=== PATIENT | female | born 1980 | race Caucasian/White ===

== ENCOUNTER 2019-05-24 20:00 | Outpatient (CLI) | payer SELFPAY | END 2019-05-24 20:01 | disposition home or self-care (01) | LOC: SLEEP 05-25 10:20 | PROVIDERS: Family Provider Nurse Practitioner Family; PCP Nurse Practitioner Family; Visit Provider Family Medicine | DX: G47.33 Obstructive sleep apnea (adult) (pediatric) (principal) | CPT/HCPCS: 95810 ==

== ENCOUNTER 2019-05-25 08:06 | Outpatient (CLI) | payer SELFPAY ==
--- NOTE | 2019-05-25 08:21 | MR_ITS ---
WS: [id number] MRI OF THE PELVIS WITHOUT GADOLINIUM ENHANCEMENT. INDICATION: Back pain TECHNIQUE: MRI of the pelvis without gadolinium enhancement. FINDINGS: Lower lumbar spine is normal in appearance. No spinal canal narrowing in the lower lumbar s pine. Marginal bony sclerosis involving both sacroiliac joints likely due to prior sacroiliitis. No e kt to indicate active infectious or inflammatory arthritis. Otherwise normal bone marrow signal in the bony pelvis and sacrum. No acute fractures. No significant erosive changes. Normal visualized sacral nerve roots. Facet arthr opathy lower lumbar spine. Mild endplate degenerative changes L5-S1. MR/MR pelvis wo con* [id number] IMPRESSION: 1. Marginal sclerosis along both sacroiliac joints likely due to prior sacroil iitis. No edema to indicate acute inflammation. 2. Bone marrow signal in the sacrum and ilium otherwise normal in appearance. 3. Mild endplate degenerative changes L5-S1. 4. Mild facet arthropathy lower lumbar spine.
== END 2019-05-25 08:07 | disposition home or self-care (01) ==
LOC: RADSHAW 08:09
PROVIDERS: Family Provider Nurse Practitioner Family; PCP Nurse Practitioner Family; Visit Provider Internal Medicine Rheumatology
DX: M54.89 Other dorsalgia (principal); M47.897 Other spondylosis, lumbosacral region; G95.89 Other specified diseases of spinal cord
CPT/HCPCS: 72195

== ENCOUNTER 2019-07-19 13:35 | Emergency (ER) | payer SELFPAY ==
[2019-07-19 14:28] VITALS: BP 134/93; PULSE 94; RESP 18; TEMP 36.9; O2SAT 97; BMI 46.7
--- NOTE | 2019-07-19 17:06 | ED_ITS ---
HPI - Back Pain/Injury General: Chief Complaint: Back Pain/Injury Stated Complaint: hip/back pain Time Seen by Provider: 07/19/19 17:05 History of Present Illness: HPI Narrative: 39-year-old female comes in today for complaints of right hip pain. Patient reports having some difficulty with pain and discomfort starting today. Patient has a history of chronic pain in the back and generalized muscle. Patient appears well. Patient appears in no pain at rest. Review of Systems General: Reports: 10 or more systems reviewed and unremarkable except in HPI and below Musc: Reports: back pain and joint pain PFSH ED PFSH: Family History (Updated 06/30/19 @ 15:16 by Arianne Walker LPN) Other Arthritis Cancer Diabetes Heart disease Kidney disease Stroke Social History (Updated 06/30/19 @ 15:16 by Arianne Walker LPN) Smoking and tobacco status: never smoked Alcohol intake: never Female Reproductive History: Date of last menstrual period: 06/21/19 Physical Exam Const: COMMON NORMALS: no apparent distress and oriented x3 GENERAL APPEARANCE: cooperative HENMT: COMMON NORMALS: normocephalic, external ears normal, EAC's normal, TM's normal bilaterally and external nose normal HEAD & SCALP: normal to inspection and normocephalic FACE & SINUS: normal facial exam NOSE: external nose normal GENERAL EAR: hearing not grossly impaired EXTERNAL EAR: Yes external ears normal EXTERNAL AUDITORY CANAL: EAC's normal TYMPANIC MEMBRANE: TM's normal bilaterally MOUTH: oral and palatal mucosa normal THROAT: posterior oropharynx normal Eye: COMMON NORMALS: PERRL and EOMs intact bilaterally PUPIL: Yes PERRL Neck/C-Spine: COMMON NORMALS: full ROM and no lymphadenopathy Lymph: LYMPHATIC: no lymphedema noted Chest: COMMONS NORMALS: inspection of chest normal and palpation of chest normal Resp: COMMON NORMALS: normal respiratory effort and clear to auscultation bilaterally AUSCULTATION: clear to auscultation bilaterally Cardio: COMMON NORMALS: regular rate and regular rhythm RATE: regular rate RHYTHM: regular rhythm GI: COMMON NORMALS: normal to inspection, nondistended, normoactive bowel sounds and non-tender : COMMON NORMALS: Yes no CVA tenderness BLADDER/KIDNEY EXAM: Yes no CVA tenderness Back/Pelvis: COMMON NORMALS: no CVA tenderness LUMBAR SPINE/LOWER BACK: Yes paraspinal muscle spasm Lumbar paraspinal muscle spasm: right Extremity: COMMON NORMALS: normal to inspection GENERAL: No edema Neuro: COMMON NORMALS: oriented x3, moves all extremities and no focal motor deficits Psych: COMMON NORMALS: mental status grossly normal and cooperative Skin: COMMON NORMALS: no rashes or lesions noted GENERAL SKIN EXAM: no rashes or lesions noted Course Vital Signs: Vital signs: Vital Signs Temperature 98.5 F 07/19/19 14:28 Pulse Rate 94 07/19/19 14:28 Respiratory Rate 18 07/19/19 17:07 Blood Pressure 134/93 07/19/19 14:28 Pulse Oximetry 95 07/19/19 17:07 MDM - Back Pain/Injury MDM Narrative: Medical decision making narrative: Medical decision statement. Well-appearing female comes in today with low back pain and right hip pain. Patient reports that she has felt a pop in the area which did not relieve some of her pain but she continues to have quite a bit of discomfort. Patient was referred from her primary care office. On exam we note a lot of muscle tenderness on the right side in the lumbar paraspinous area. Abdomen soft nontender. No CVA tenderness. Skin is warm and dry. Vital signs are normal. Differential diagnosis includes osteoarthritis, intervertebral disc disease, facet arthropathy, lumbar radiculopathy. X-ray noted no abnormalities to her hip or pelvis. Reviewed exam with patient recommended treatment for lumbar radiculopathy. Encourage activity as tolerated continue with her routine medications and follow-up with primary care. Discharge Plan Discharge Patient Disposition: Home, Self-Care Clinical Impression: Lumbar radiculopathy Condition: Stable Prescriptions: New hydrocodone-acetaminophen 5-325 mg tablet 1 tab PO Q6H PRN (Reason: pain (scale score 7-10)) Qty: 7 RF: 0 No Action buspirone 10 mg tablet 30 mg PO BID RF: 0 citalopram 10 mg tablet 10 mg PO QDAY RF: 0 ferrous gluconate [Ferate] 240 mg (27 mg iron) tablet 240 mg PO QDAY RF: 0 fluticasone propionate [Allergy Relief (fluticasone)] 50 mcg/actuation spray,suspension 2 spray INTRANASAL QDAY RF: 0 hydroxyzine HCl 25 mg tablet 25 mg PO BID PRNRF: 0 metoprolol tartrate 25 mg tablet 25 mg PO BID RF: 0 meloxicam [Mobic] 7.5 mg tablet 7.5 mg PO QDAY RF: 0 pantoprazole [address] for susp in packet 40 mg PO QDAY RF: 0 ropinirole 1 mg tablet 1 mg PO QDAY RF: 0 tizanidine 4 mg capsule 4 mg PO TID PRNRF: 0 gabapentin 600 mg tablet 600 mg PO TID Qty: 90 RF: 1 Discharge Orders: Discharge Order (Routine); Ordered 07/19/19 Ordered By: Lam Sheridan Referrals: Joan Ferreira, PERSONAL COMPUTER NETWORK ENGINEER [Primary Care Provider] - Discharge Diet: Usual diet Discharge Activity: Increase activity as tolerated Patient Instructions: Lumbar Radiculopathy (ED) Activity Restrictions/Additional Instructions: Drink plenty of fluids Medications as directed Gentle stretching and range of motion exercise Ice and heat for further pain control Follow-up with primary care in three days as needed Return to ER for high fever or new concerns Coding Level of Care Code ED Wick And Base Assembler for Andres Fwd Exam Comprehensive
[2019-07-19 17:07] VITALS: RESP 18; O2SAT 95
--- NOTE | 2019-07-19 17:12 | XR_ITS ---
WS: [id number] XR hip RT 2-3V wo/w pel* [id number] REASON FOR EXAM: pain FINDINGS: The pelvis show normal ilium, ischium, and pubis. The right hip showed normal appearance of the acetabulum femoral head articulation. No fractures of t he head of the femur, neck, or intertrochanteric area. XR/XR hip RT 2-3V wo/w pel* [id number] IMPRESSION: Negative pelvis and right hip.
[2019-07-19] MEDS: HYDROcodone-acetaminophen 7.5-325 mg Tablet 1 TAB PO (17:29)
[2019-07-19 18:11] VITALS: RESP 17; O2SAT 95
== END 2019-07-19 18:11 | disposition home or self-care (01) ==
PROVIDERS: Emergency Provider Nurse Practitioner Family; Family Provider Nurse Practitioner Family; PCP Nurse Practitioner Family
DX: M54.16 Radiculopathy, lumbar region (principal)
CPT/HCPCS: 73502; 73503; 99281; 99283

== ENCOUNTER 2019-07-21 20:00 | Outpatient (CLI) | payer SELFPAY | END 2019-07-21 20:01 | disposition home or self-care (01) | LOC: SLEEP 07-22 10:24 | PROVIDERS: Family Provider Nurse Practitioner Family; PCP Nurse Practitioner Family; Visit Provider Nurse Practitioner Family | DX: G47.30 Sleep apnea, unspecified (principal) | CPT/HCPCS: 95810; 95811 ==

== ENCOUNTER → 2019-07-27 16:22 | Outpatient (BNVA) | payer SELFPAY | PROVIDERS: Family Provider Nurse Practitioner Family; PCP Nurse Practitioner Family; Visit Provider Internal Medicine Rheumatology | DX: M19.90 Unspecified osteoarthritis, unspecified site (principal); Z79.899 Other long term (current) drug therapy; M46.1 Sacroiliitis, not elsewhere classified; M06.4 Inflammatory polyarthropathy; M45.9 Ankylosing spondylitis of unspecified sites in spine; G89.29 Other chronic pain; M47.819 Spondylosis without myelopathy or radiculopathy, site unspecified; R76.8 Other specified abnormal immunological findings in serum; R79.82 Elevated C-reactive protein (CRP) | CPT/HCPCS: 36415; 80076; 82565; 85651; 86140; 86812; 99214; G0463 ==

== ENCOUNTER → 2019-07-27 17:15 | Outpatient (BNVA) | payer SELFPAY | PROVIDERS: Family Provider Nurse Practitioner Family; PCP Nurse Practitioner Family; Visit Provider Internal Medicine Rheumatology | DX: Z79.899 Other long term (current) drug therapy (principal); M19.90 Unspecified osteoarthritis, unspecified site; M46.1 Sacroiliitis, not elsewhere classified; M06.4 Inflammatory polyarthropathy; M45.9 Ankylosing spondylitis of unspecified sites in spine; G89.29 Other chronic pain; M47.819 Spondylosis without myelopathy or radiculopathy, site unspecified; R76.8 Other specified abnormal immunological findings in serum; Z71.89 Other specified counseling; R79.82 Elevated C-reactive protein (CRP) | CPT/HCPCS: 85025 ==

== ENCOUNTER 2019-08-02 06:10 | Day surgery (SDC) | payer SELFPAY ==
[2019-07-30 13:50] VITALS: BMI 47.0
[2019-08-02 06:40] VITALS: BP 128/78; PULSE 79; RESP 16; TEMP 36; O2SAT 98; BMI 47.0
[2019-08-02] MEDS: sodium chloride 0.9% 1,000 ML 30 ML (06:56)
[2019-08-02 07:23] LABS: HCG, Serum Qual Negative (Negative)
--- NOTE | 2019-08-02 07:49 | W.PM.OPSUD ---
Surgery/Procedure H&P Update DATE OF PROCEDURE: August 02, 2019 DATE H&P PERFORMED: 07/30/19 H&P UPDATE INFORMATION: I have reviewed H&P completed within last 30 days, I have examined patient prior to procedure and No changes to prior documentation PREOP DIAGNOSIS: Nausea and vomiting PLANNED PROCEDURE: Operation Date: 08/02/19 08:15 Proposed Procedures p EGD 74588 K21.9(Not Applicable) - Antoine Bauer MD
--- NOTE | 2019-08-02 08:15 | ANES.PREANE2 ---
Pre-Anesthetic Assessment Pre-Anesthetic Assessment: Height/Weight: Height 1.68 m Weight 131.995 kg Temp Pulse Resp BP Pulse Ox 96.8 F L 79 16 128/78 98 08/02/19 06:40 08/02/19 06:40 08/02/19 06:40 08/02/19 06:40 08/02/19 06:40 Preop Diagnosis: Nausea and vomiting Proposed Procedure: Operation Date: 08/02/19 08:15 Proposed Procedures p EGD 92290 K21.9(Not Applicable) - Antoine Bauer MD Familial anesthetic complications: none Was Beta Dayami taken within 24 hours: N/A Last intake: Intake Last Liquid Date 08/01/19 Last Liquid Time 23:30 Last Solid Date 08/01/19 Last Solid Time 20:30 Social: Social History: No alcohol and No tobacco Exam: Pre-Anes Outpt Exam: alert, oriented x 3, clear to auscultation bilaterally and regular rate & rhythm Airway: Submandibular: WNL Cervical ROM: WNL MP: 2 Dentition: Full History/ROS: No significant history except as noted Pulmonary: Pulmonary: Asthma and Sleep apnea (recently diagnosed) Comments: possible narcolepsy CV/HEM: CV/HEM: None reported : : None reported Hepatic: Hepatic: None reported GI: GI: GERD Metabolic: Metabolic: Morbid obesity Musc/skel: Musc/skel: Fibromyalgia, Lower Back Pain, OA/DJD, Scoliosis and Weakness (back/full body) Neuropsych: Neuropsych: Anxiety and Depression Anesthetic Plan: ASA status: 3 Anesthesia: MAC PFSH Anesthesia PFSH: Social History Smoking and tobacco status: never smoked Alcohol intake: never Female Reproductive History: Date of last menstrual period: 06/21/19 Data Anesthesia Other Labs: Laboratory Results - last 48 hr 08/02/19 06:51 HCG, Qual Negative Cardiac Studies: No Data to Display
[2019-08-02 09:13] VITALS: BP 117/78; PULSE 75; RESP 18; TEMP 36.2; O2SAT 99
--- NOTE | 2019-08-02 09:18 | ANE.PACU2 ---
 Inpatient post-anesthesia follow up: Airway intact: Yes Vital signs: Temperature 97.2 F Pulse Rate 75 Respiratory Rate 18 Blood Pressure 117/78 Pulse Oximetry 99 Oxygen Delivery Me thod Nasal Cannula Oxygen Flow Rate 4 Fraction of Inspir ed Oxygen Hydration adequate: Yes Nausea and vomiting: No Pain level: 1 Mental status: Baseline
[2019-08-02 09:24] VITALS: BP 138/95; PULSE 72; RESP 18; O2SAT 99
[2019-08-02 09:31] VITALS: BP 130/90; PULSE 70; RESP 18; O2SAT 99
== END 2019-08-02 09:32 | disposition home or self-care (01) ==
PROVIDERS: Family Provider Nurse Practitioner Family; PCP Nurse Practitioner Family; Visit Provider Surgery
PROC: 0DJ08ZZ Inspection of Upper Intestinal Tract, Via Natural or Artificial Opening Endoscopic (ICD-10-PCS; CPT 43235; principal; 2019-08-02 08:15)
DX: R11.2 Nausea with vomiting, unspecified (principal); K25.9 Gastric ulcer, unspecified as acute or chronic, without hemorrhage or perforation; M79.7 Fibromyalgia; Z82.49 Family history of ischemic heart disease and other diseases of the circulatory system; Z83.3 Family history of diabetes mellitus; Z82.3 Family history of stroke; J45.909 Unspecified asthma, uncomplicated; G47.30 Sleep apnea, unspecified; E66.01 Morbid (severe) obesity due to excess calories; Z68.42 Body mass index [BMI] 45.0-49.9, adult; M19.90 Unspecified osteoarthritis, unspecified site
CPT/HCPCS: 12345; 36415; 43239; 84703; 88305; J2704; J7030

== ENCOUNTER → 2019-09-09 14:34 | Outpatient (BNVA) | payer MEDICAID, SELFPAY | PROVIDERS: Family Provider Nurse Practitioner Family; PCP Nurse Practitioner Family; Referring Provider Nurse Practitioner Family; Visit Provider Nurse Practitioner | DX: M46.1 Sacroiliitis, not elsewhere classified (principal); M54.9 Dorsalgia, unspecified; R55 Syncope and collapse | CPT/HCPCS: 99204; 99999 ==

== ENCOUNTER 2019-09-20 10:24 | Outpatient (CLI) | payer MEDICAID, SELFPAY ==
--- NOTE | 2019-09-20 10:34 | MR_ITS ---
WS: [id number] MRI LUMBAR SPINE NONCONTRAST HISTORY: BACK PAIN COMPARISON: None available. TECHNIQUE: Sagittal and axial multisequence imaging is submitted. Normal lumbar alignment with no compression fractures or marrow edema. Mild disc desiccation at L4 and L5. Small amount of edema in the endplates of L5 and S1. No fracture. Conus terminates normally at L1. L1-L2: Normal. L2-L3: Normal. L3-L4: Mild ligamentum flavum hypertrophy. No stenosis. L4-L5: Shallow central disc protrusion and mild annular disc bulging. No significant stenosis. L5-S1: Mild broad-based disc bulging with this RIGHT paracentral/subarticular disc protrusion contact ing the S1 nerve root. Disc osteophyte causing mild narrowing of the RIGHT foramen also. Mild narrowi ng of the LEFT foramen. Mild bilateral facet joint arthritis. Paraspinal soft tissues are normal. MR/MR lumbar spine wo con* [id number] IMPRESSION: 1. Moderate-sized RIGHT paracentral and subarticular recess disc protrusion at L5-S1 with contact on the S1 nerve root. 2. Mild bilateral foraminal narrowing at L5-S1, RIGHT greater than LEFT. 3. Shallow central disc protrusion at L4-5.
== END 2019-09-20 10:25 | disposition home or self-care (01) ==
LOC: RADWPI 10:32
PROVIDERS: Family Provider Nurse Practitioner Family; PCP Nurse Practitioner Family; Visit Provider Nurse Practitioner
DX: M51.27 Other intervertebral disc displacement, lumbosacral region (principal); M48.07 Spinal stenosis, lumbosacral region
CPT/HCPCS: 72148

== ENCOUNTER 2019-10-03 15:46 | Emergency (ER) | payer MEDICAID, SELFPAY ==
[2019-10-03 15:50] VITALS: BMI 46.0
[2019-10-03 15:54] VITALS: BP 116/99; PULSE 90; RESP 18; TEMP 36.6; O2SAT 97
--- NOTE | 2019-10-03 16:10 | W.ED.BACK ---
HPI - Back Pain/Injury General: Chief Complaint: Back Pain/Injury Stated Complaint: back pain Time Seen by Provider: 10/03/19 15:53 History of Present Illness: HPI Narrative: Patient complains about ongoing chronic back pain. Was saw Dr. Walls's office other day was given injection was saw by telehealth visit with Masha senior APN at Dr. Drew's office patient is been set up appointment with pain clinic now and she desired medication to help with her ongoing low back pain MD elicited complaint: back pain Pertinent past history: prior back pain Onset (ago): year(s) Timing: constant and progressively worsening Severity: moderate Similar Symptoms Previously: Yes Quality: aching Location: lumbar spine Radiation: left upper leg, right upper leg, left leg below the knee and right leg below the knee Exacerbating factors: movement and lifting Relieving factors: immobilization Associated symptoms: Reports no associated symptoms; Deny abdominal pain, chills, fever(s), nausea or vomiting Review of Systems Const: Denies: fever(s), chills or body aches Eyes: Denies: change in vision or blurry vision ENMT: Denies: throat pain or nasal congestion Card: Denies: chest pain or dyspnea on exertion Resp: Denies: dyspnea, productive cough or non-productive cough GI: Denies: abdominal pain, nausea or vomiting Musc: Reports: back pain; Denies: extremity pain Skin/Breast: Denies: rash Neuro: Denies: headache(s) Psych: Denies: anxiety or depression Jim/Lymph: Denies: easy bruising PFSH ED PFSH: Medical History Fibromyalgia Gastritis Inflammatory arthritis Sacroiliitis Spondylarthritis Undifferentiated connective tissue disease Surgical History H/O esophagogastroduodenoscopy 08/02/2019: Gastric erosions History of cholecystectomy History of dilation and curettage History of tonsillectomy History of tubal ligation Family History (Updated 09/29/19 @ 13:05 by Jovita Tierney LPN) Mother Arthritis Heart disease Stroke Father Cancer Diabetes Heart disease Kidney disease Social History (Updated 09/29/19 @ 13:06 by Jovita Tierney LPN) Smoking and tobacco status: former smoker Alcohol intake: never Household members: children Marital status: Current occupational status: unemployed History of recent travel: No Female Reproductive History: Date of last menstrual period: 09/20/19 Physical Exam Const: COMMON NORMALS: no acute distress, average body habitus and patient oriented x3 HENMT: COMMON NORMALS: normocephalic HEAD & SCALP: normal to inspection and normocephalic FACE & SINUS: normal facial exam Eye: COMMON NORMALS: conjunctivae normal GENERAL EYE: appearance normal, both eyes and all related structures CONJUNCTIVA: Yes conjunctivae normal Neck/C-Spine: COMMON NORMALS: no JVD Chest: COMMONS NORMALS: normal inspection of the chest Resp: COMMON NORMALS: normal respiratory effort and clear to auscultation bilaterally AUSCULTATION: clear to auscultation bilaterally Cardio: COMMON NORMALS: no JVD, regular rate and regular rhythm RATE: regular rate RHYTHM: regular rhythm GI: COMMON NORMALS: Normal to inspection, nondistended, normoactive bowel sounds present Back/Pelvis: COMMON NORMALS: negative for straight leg raise negative bilaterally LUMBAR SPINE/LOWER BACK: Yes straight leg raise positive right and Yes straight leg raise positive left PELVIS: Yes Other pelvic findings COCCYX: Other pelvic findings OTHER: Neurovascular status and distal of the low back is intact, patient is obese Extremity: COMMON NORMALS: normal to inspection and full ROM Neuro: COMMON NORMALS: patient oriented x3 Course Vital Signs: Vital signs: Vital Signs Temperature 97.8 F 10/03/19 15:54 Pulse Rate 90 10/03/19 15:54 Respiratory Rate 18 10/03/19 15:54 Blood Pressure 116/99 10/03/19 15:54 Pulse Oximetry 97 10/03/19 15:54 Discharge Plan Discharge Prescriptions: No Action buspirone 10 mg tablet 40 mg PO BID RF: 0 meloxicam [Mobic] 7.5 mg tablet 7.5 mg PO BID Qty: 60 RF: 2 gabapentin 600 mg tablet 600 mg PO TID Qty: 90 RF: 2 Ozempic 0.25 mg or 0.5 mg(2 mg/1.5 mL) pen injector 0.25 mg SUBCUT .WEEKLY RF: 0 citalopram 10 mg tablet 10 mg PO QDAY RF: 0 ferrous gluconate [Ferate] 240 mg (27 mg iron) tablet 240 mg PO QDAY RF: 0 fluticasone propionate [Allergy Relief (fluticasone)] 50 mcg/actuation spray,suspension 2 spray INTRANASAL QDAY RF: 0 hydroxyzine HCl 25 mg tablet 25 mg PO BID PRN (Reason: unknown) RF: 0 ropinirole 1 mg tablet 1 mg PO QDAY RF: 0 tizanidine 4 mg capsule 4 mg PO TID PRN (Reason: Unobtainable) RF: 0 Enbrel Mini 50 mg/mL (1 mL) cartridge 50 mg SUBCUT Q7D RF: 0 Protonix 40 mg tablet,delayed release (DR/EC) 40 mg PO BIDWM 42 Days Qty: 42 RF: 3 Coding Level of Care Code ED Die Try Out Worker for Chg Fwd Exam Comprehensive
[2019-10-03 16:36] VITALS: BP 118/75; PULSE 86; RESP 16; O2SAT 95
== END 2019-10-03 16:36 | disposition home or self-care (01) ==
PROVIDERS: Emergency Provider Nurse Practitioner Family; PCP Nurse Practitioner Family
DX: M54.9 Dorsalgia, unspecified (principal); Z87.891 Personal history of nicotine dependence
CPT/HCPCS: 12345; 99281

== ENCOUNTER 2019-10-21 10:21 | Outpatient (CLI) | payer MEDICAID, SELFPAY ==
--- NOTE | 2019-10-21 10:30 | XR_ITS ---
WS: [id number] LATERAL LUMBAR SPINE: 3 view. Lateral radiographs are performed in upright neutral, flexion and extension to the patient's toleranc e. HISTORY: Low back pain COMPARISON: None available. Normal lumbar alignment. Vertebral body heights and disc space heights are maintained. There is no in stability with flexion or extension. XR/XR lumbar spine f/e only [id number] IMPRESSION: No lumbar spine instability.
== END 2019-10-21 10:22 | disposition home or self-care (01) ==
PROVIDERS: Family Provider Nurse Practitioner Family; PCP Nurse Practitioner Family; Visit Provider Licensed Practical Nurse
DX: M54.5 Low back pain (principal)
CPT/HCPCS: 72120

== ENCOUNTER → 2019-11-01 10:17 | Outpatient (BNVA) | payer MEDICAID, SELFPAY | PROVIDERS: Family Provider Nurse Practitioner Family; PCP Nurse Practitioner Family; Visit Provider Specialist | DX: G40.909 Epilepsy, unspecified, not intractable, without status epilepticus (principal); Z87.891 Personal history of nicotine dependence | CPT/HCPCS: 95816 ==

== ENCOUNTER → 2019-11-02 11:06 | Outpatient (BNVA) | payer MEDICAID, SELFPAY | PROVIDERS: Family Provider Nurse Practitioner Family; PCP Nurse Practitioner Family; Visit Provider Internal Medicine Rheumatology | DX: M06.4 Inflammatory polyarthropathy (principal); Z79.899 Other long term (current) drug therapy; M19.90 Unspecified osteoarthritis, unspecified site; M54.30 Sciatica, unspecified side; K25.9 Gastric ulcer, unspecified as acute or chronic, without hemorrhage or perforation | CPT/HCPCS: 99214 ==

== ENCOUNTER → 2019-11-17 09:16 | Outpatient (BNVA) | payer MEDICAID, SELFPAY | PROVIDERS: Family Provider Nurse Practitioner Family; PCP Nurse Practitioner Family; Visit Provider Specialist | DX: G40.909 Epilepsy, unspecified, not intractable, without status epilepticus (principal); M46.1 Sacroiliitis, not elsewhere classified; M62.81 Muscle weakness (generalized); R55 Syncope and collapse | CPT/HCPCS: 99215 ==

== ENCOUNTER 2019-11-17 11:05 | Outpatient (CLI) | payer MEDICAID, SELFPAY ==
[2019-11-17 12:42] LABS: Creatine Phosphokinase 56 U/L (26-192)
[2019-11-23 16:31] LABS: Acetylcholine Recept Modulatin 16
== END 2019-11-17 11:06 | disposition home or self-care (01) ==
LOC: LAB 11:10
PROVIDERS: PCP Nurse Practitioner Family; Visit Provider Specialist
DX: M62.81 Muscle weakness (generalized) (principal); R56.9 Unspecified convulsions
CPT/HCPCS: 82550; 83516

== ENCOUNTER 2019-12-14 22:26 | Emergency (ER) | payer MEDICAID, SELFPAY ==
[2019-12-14 22:26] VITALS: BP 144/53; PULSE 71; RESP 18; TEMP 36.6; O2SAT 96; BMI 45.0
[2019-12-14 22:46] VITALS: BP 149/89; PULSE 71; RESP 16; O2SAT 96
--- NOTE | 2019-12-14 22:53 | W.ED.HA ---
HPI - Headache General: Chief Complaint: Neuro Symptoms/Deficit Stated Complaint: BECKETT, Neuro Deficits Time Seen by Provider: 12/14/19 22:28 Source: patient and family Mode of arrival: EMS Limitations: no limitations History of Present Illness: HPI Narrative: Patient is a 39-year-old female who presents to ED today via EMS for evaluation of a headache. Patient tells me she has had 4 episodes over the past 3 weeks where she will start having left-sided facial paresthesias, family states her eyes will gloss over , she will develop left-sided facial drooping, and left-sided arm and leg paresthesias and weakness. Patient states a few weeks ago she was flighted to [facility] in [place] after she called an ambulance due to their concern for stroke-like symptoms. Patient tells me while at [facility] she had a thorough evaluation including MRI, CTAs, CTs, and neurology consultation who eventually diagnosed patient with a hemiplegic migraine. Patient states during her previous episodes, symptoms will last approximately 30 minutes and then completely subside. She states she had a similar episode today while at home. States symptoms are almost identical upon every episode however today during an episode while daughter was driving her to the ED, she began having paresthesias around her lips and felt like she was having trouble breathing so they stopped and called an ambulance who then brought patient here. Upon arrival all of patient's symptoms have subsided apart from a left-sided retro-orbital headache. MD elicited complaint: headache Onset description: gradually Location: left Exacerbating factors: none Relieving factors: nothing Context: occurred at rest Associated symptoms: Deny chest pain (subsided upon arrival), confusion, fever(s) or rash Treatments prior to arrival: none Review of Systems Const: Denies: fever(s), chills or body aches Eyes: Denies: change in vision, blurry vision, blind spots, photophobia, floaters or seeing flashes ENMT: Denies: throat pain or odynophagia Card: Denies: chest pain (subsided upon arrival) Resp: Denies: dyspnea (subsided upon arrival) GI: Denies: abdominal pain Musc: Denies: neck pain or back pain Skin/Breast: Denies: rash Neuro: Reports: headache(s) and sensory changes (subsided upon arrival); Denies: dizziness, vertigo, confusion or seizure-like activity PFSH ED PFSH: Medical History (Updated 12/15/19 @ 01:48 by COLT Quezada) Depression Fibromyalgia Gastritis Inflammatory arthritis Intervertebral disc disorder with radiculopathy of lumbar region PTSD (post-traumatic stress disorder) Sacroiliitis Spondylarthritis Undifferentiated connective tissue disease Surgical History H/O esophagogastroduodenoscopy 08/02/2019: Gastric erosions History of cholecystectomy History of dilation and curettage History of tonsillectomy History of tubal ligation Family History Mother Arthritis Heart disease Stroke Father Cancer Diabetes Heart disease Kidney disease Social History Smoking and tobacco status: former smoker Alcohol intake: never Household members: children Marital status: Current occupational status: unemployed History of recent travel: No Female Reproductive History: Date of last menstrual period: 11/20/19 Physical Exam Const: COMMON NORMALS: no acute distress, patient oriented x3, no limitations and alert NUTRITIONAL APPEARANCE: obese ORIENTATION/CONSCIOUSNESS: Yes oriented to person, Yes oriented to place and Yes oriented to time HENMT: COMMON NORMALS: normocephalic, atraumatic and hearing grossly normal bilaterally HEAD & SCALP: normal to inspection, normocephalic and atraumatic FACE & SINUS: normal facial exam and sinuses nontender Eye: COMMON NORMALS: Equal, round and reactive pupils present, EOMs intact bilaterally, conjunctivae normal and no scleral icterus GENERAL EYE: appearance normal, both eyes and all related structures and normal light reflex VISUAL ACUITY: Yes acuity normal ALIGNMENT: Yes alignment normal PERIORBITAL: periorbital findings normal EYELID: eyelids normal CONJUNCTIVA: Yes conjunctivae normal PUPIL: Yes Equal, round and reactive pupils present DIRECT OPHTHALMOSCOPY: Yes normal light reflex Neck/C-Spine: COMMON NORMALS: full ROM, no lymphadenopathy and no meningeal signs Neuro: LAURE COMA SCALE: document GCS findings [place] coma scale eye opening: Spontaneous Laure coma scale verbal response: Orientated Laure coma scale motor response: Obey commands Laure coma scale total score: 15 COMMON NORMALS: patient oriented x3, CN's II-XII intact bilaterally, moves all extremities, no focal motor deficits and no sensory deficits noted SENSORIUM/ORIENTATION: Yes alert, Yes oriented to person, Yes oriented to place and Yes oriented to time MENINGEAL SIGNS: Yes no meningeal signs SPEECH: speech normal MOTOR EXAM: 5/5 motor strength present throughout OTHER: NIHSS score 0 Course Vital Signs: Vital signs: Vital Signs Temperature 97.9 F 12/14/19 22:26 Pulse Rate 64 12/15/19 01:51 Respiratory Rate 15 12/15/19 01:51 Blood Pressure 126/68 12/15/19 01:51 Pulse Oximetry 95 12/15/19 01:51 MDM - Headache MDM Narrative: Medical decision making narrative: Patient's history and symptoms are consistent with a hemiplegic migraine. At the beginning of patient's visit I did request records from [facility] however it is now been 3 hours later and we have yet to receive records even after contacting them numerous times. Patient has absolutely zero neurological deficits on her exam currently. Again her history is not consistent with CVA/TIA symptoms. She states she does not want any further work up today or repeat imaging as she had such an extensive work up performed at [facility]. Attempted to alleviate patient's headache here but was unsuccessful. It did improve slightly however. Patient is requesting to go home at this time. She is asking for a preventative medication for her symptoms. After researching, verapamil can be used for frontline therapy for hemiplegic migraines however patient's blood pressure has been fairly soft throughout her visit so I would rather not place her on this at this time. Will start her on Topamax daily. Will have CM set her up to see Dr. Walls for further evaluation and management. Discharge Plan Discharge Patient Disposition: Home Clinical Impression: Hemiplegic migraine Qualifiers: Status migrainosus presence: without status migrainosus Intractability: intractable Qualified Code(s): G43.419 - Hemiplegic migraine, intractable, without status migrainosus Condition: Stable Prescriptions: New Topamax 25 mg tablet 25 mg PO DAILY Qty: 30 RF: 0 No Action buspirone 10 mg tablet 40 mg PO BID RF: 0 meloxicam [Mobic] 7.5 mg tablet 7.5 mg PO BID Qty: 60 RF: 2 gabapentin 600 mg tablet 600 mg PO TID Qty: 90 RF: 2 Ozempic 0.25 mg or 0.5 mg(2 mg/1.5 mL) pen injector 0.25 mg SUBCUT .WEEKLY RF: 0 zonisamide [Zonegran] 100 mg capsule 400 mg PO DAILY Qty: 120 RF: 5 citalopram 10 mg tablet 10 mg PO QDAY RF: 0 ferrous gluconate [Ferate] 240 mg (27 mg iron) tablet 240 mg PO QDAY RF: 0 fluticasone propionate [Allergy Relief (fluticasone)] 50 mcg/actuation spray,suspension 2 spray INTRANASAL QDAY RF: 0 hydroxyzine HCl 25 mg tablet 25 mg PO BID PRN (Reason: unknown) RF: 0 ropinirole 1 mg tablet 1 mg PO QDAY RF: 0 tizanidine 4 mg capsule 8 mg PO BID RF: 0 hydrocodone-acetaminophen 5-325 mg tablet 1 tab PO Q8H PRN (Reason: pain) Qty: 10 RF: 0 Protonix 40 mg tablet,delayed release (DR/EC) 40 mg PO BIDWM 42 Days Qty: 42 RF: 3 Discharge Orders: Discharge Order (Routine); Ordered 12/15/19 Ordered By: Lidya Paul Referrals: Macarena Walls MD [Physician] - Activity Restrictions/Additional Instructions: As discussed please contact Dr. Walls's office to schedule follow up appointment. Try and get records from [facility] prior to visit as this will be beneficial for Dr. Walls. Our case management team will also work on trying to get you an appointment. Discharge Date/Time: 12/15/19 01:56 Coding Level of Care Code ED Bell Captain for Chg Fwd Exam Detailed
[2019-12-14] MEDS: diphenhydrAMINE 50 mg/mL SDV 1mL IVP (22:57)
[2019-12-14] MEDS: dexamethasone 4 mg/mL INJ 8 MG IVP (22:57)
[2019-12-14 23:00] VITALS: BP 127/71; PULSE 72; RESP 16; O2SAT 97
[2019-12-14 23:39] VITALS: BP 130/75; RESP 14; O2SAT 98
[2019-12-14] MEDS: valproic acid inj 500 MG in sodium chloride 0.9% 50 ML 55 MG IV (23:45)
[2019-12-15 00:23] VITALS: RESP 14; O2SAT 97
[2019-12-15] MEDS: morphine 4 mg/mL SDV 1 mL IVP (00:23)
[2019-12-15] MEDS: ondansetron 2 mg/ML SDV 2 mL 4 MG IVP (00:23)
[2019-12-15 00:26] VITALS: BP 128/80; PULSE 80; RESP 16; O2SAT 97
[2019-12-15 00:56] VITALS: BP 138/75; RESP 16; O2SAT 96
[2019-12-15 01:01] VITALS: BP 101/57; PULSE 69; RESP 15; O2SAT 96
[2019-12-15 01:47] VITALS: BP 137/64; RESP 15; O2SAT 95
[2019-12-15 01:51] VITALS: BP 126/68; PULSE 64; RESP 15; O2SAT 95
--- NOTE | 2019-12-16 11:25 | PC.SOCIAL ---
Spoke with Rajani at Neurology regarding referral for Migraines and she is already established for Seizures but since needing to be seen for Migraines need to keep appt set at 01/20/2020 at 12:15pm. Called patient to update her and she has talked to nurse at that clinic to see if a early appt can be made. Advised her to keep this one for now but to touch base with nurse again tomorrow to see if this date and time can be moved up after nurse has spoken with provider. Patient appreciated the help and has no further question or concerns.
--- NOTE | 2020-02-17 08:11 | DCPLANNER ---
Patient had a follow up appointment scheduled with Dr. Campbell office - patient did attend the appointment
== END 2019-12-15 01:56 | disposition home or self-care (01) ==
PROVIDERS: Emergency Provider Physician Assistant; PCP Nurse Practitioner Family
DX: G43.419 Hemiplegic migraine, intractable, without status migrainosus (principal); Z87.891 Personal history of nicotine dependence
CPT/HCPCS: 12345; 96365; 96366; 96375; 99283; 99284; J0131; J1100; J1200; J2270; J2405

== ENCOUNTER → 2019-12-23 14:41 | Outpatient (BNVA) | payer MEDICAID, SELFPAY | PROVIDERS: PCP Nurse Practitioner Family; Visit Provider Specialist | DX: G43.709 Chronic migraine without aura, not intractable, without status migrainosus (principal); F44.5 Conversion disorder with seizures or convulsions; F43.10 Post-traumatic stress disorder, unspecified; Z87.891 Personal history of nicotine dependence; M19.90 Unspecified osteoarthritis, unspecified site; M47.819 Spondylosis without myelopathy or radiculopathy, site unspecified; R76.8 Other specified abnormal immunological findings in serum | CPT/HCPCS: 96372; 99215; G0463 ==

== ENCOUNTER 2020-01-16 13:27 | Emergency (ER) | payer MEDICAID, SELFPAY ==
[2020-01-16 13:29] VITALS: BP 140/87; PULSE 92; RESP 16; TEMP 36.6; O2SAT 97; BMI 44.4
--- NOTE | 2020-01-16 14:04 | W.ED.HA ---
HPI - Headache General: Chief Complaint: Headache Stated Complaint: hemoplegic migrains Time Seen by Provider: 01/16/20 13:58 Source: patient Mode of arrival: ambulatory Limitations: no limitations History of Present Illness: HPI Narrative: Dolly is a nice 39-year-old female who comes in complaining of migraine headache. Patient states she had a seizure Friday night and this triggered a migraine later. Patient has a history of hemiplegic migraines but states this does not feel like a hemiplegic migraine. She never had any neurologic deficits only the headache. Patient denies any injury to her head or neck from the seizure. She believes the seizure was because she missed a seizure medication. Associated nausea denies any vomiting. Headache is on the left side of her head which is typical for her and her migraines. Patient denies any other complaints or concerns at this time. She cannot find anything to help with this at home but she has tried her regular medications including plew-abm-eencgol medicines for headache. Patient describes the pain as moderate to severe. Associated symptoms: Deny chest pain, confusion, diaphoresis, fever(s), lightheadedness, malaise, nausea, pre-syncope, rash, syncope or vomiting Review of Systems Const: Denies: fever(s), chills, body aches, fatigue, malaise or diaphoresis Eyes: Denies: change in vision, blurry vision, photophobia, eye discomfort, eye discharge or eye redness ENMT: Denies: throat pain, odynophagia, hoarseness, swelling of lips/tongue, ear or mastoid pain, ear discharge, change in hearing or nasal discharge Card: Denies: chest pain, palpitations, irregular heart rhythm, edema, lightheadedness, syncope, pre-syncope, dyspnea on exertion or orthopnea Resp: Denies: dyspnea, productive cough, non-productive cough, wheezing, hemoptysis or chest congestion GI: Denies: abdominal pain, nausea, vomiting, hematemesis, coffee ground emesis, heartburn, diarrhea, constipation, GI cramping, hematochezia or melena : Denies: flank pain, dysuria, urinary frequency, urinary urgency or hematuria Musc: Denies: neck pain, back pain, extremity pain, extremity swelling, joint pain, joint swelling, joint redness, joint warmth or joint stiffness Skin/Breast: Denies: rash, pruritus, erythema or skin tenderness Neuro: Reports: headache(s); Denies: numbness in extremities, weakness in extremities, sensory changes, lack of coordination, difficulty walking, dizziness, vertigo, confusion, Slurred speech present or seizure-like activity Jim/Lymph: Denies: easy bruising, easy bleeding, petechiae, purpura or enlarged lymph nodes All/Imm: Denies: urticaria, throat swelling, tongue swelling, facial swelling or acute wheezing PFSH ED PFSH: Medical History Depression Fibromyalgia Gastritis Inflammatory arthritis Intervertebral disc disorder with radiculopathy of lumbar region PTSD (post-traumatic stress disorder) Sacroiliitis Spondylarthritis Undifferentiated connective tissue disease Surgical History H/O esophagogastroduodenoscopy 08/02/2019: Gastric erosions History of cholecystectomy History of dilation and curettage History of tonsillectomy History of tubal ligation Family History Mother Arthritis Heart disease Stroke Father Cancer Diabetes Heart disease Kidney disease Social History Smoking and tobacco status: former smoker Alcohol intake: never Household members: children Marital status: Current occupational status: unemployed History of recent travel: No Female Reproductive History: Date of last menstrual period: 11/20/19 Physical Exam Const: COMMON NORMALS: no acute distress, patient oriented x3, no limitations, healthy appearing and well nourished GENERAL APPEARANCE: cooperative, well kempt and well developed HENMT: COMMON NORMALS: normocephalic, atraumatic, external ears normal, EAC's normal and Normal external nose present HEAD & SCALP: normal to inspection, normocephalic and atraumatic FACE & SINUS: normal facial exam and face symmetric NOSE: Normal external nose present and Normal nares present EXTERNAL EAR: Yes external ears normal EXTERNAL AUDITORY CANAL: EAC's normal MOUTH: Normal oral and palatal mucosa present, lip normal and tongue normal Eye: COMMON NORMALS: Equal, round and reactive pupils present and conjunctivae normal GENERAL EYE: appearance normal, both eyes and all related structures ALIGNMENT: Yes alignment normal PERIORBITAL: periorbital findings normal EYELID: eyelids normal CONJUNCTIVA: Yes conjunctivae normal SCLERA: sclerae normal PUPIL: Yes Equal, round and reactive pupils present Neck/C-Spine: COMMON NORMALS: full ROM, no lymphadenopathy, supple, no meningeal signs and no JVD GENERAL: Yes normal visual inspection and Yes trachea midline Chest: COMMONS NORMALS: normal inspection of the chest and normal palpation of entire chest wall Resp: COMMON NORMALS: normal respiratory effort, No retractions, No use of accessory muscles and clear to auscultation bilaterally EFFORT & INSPECTION: Yes able to speak in complete sentences and Yes symmetric chest movement AUSCULTATION: clear to auscultation bilaterally, no crackles, no rales, no rhonchi and no wheezes Cardio: COMMON NORMALS: no JVD, regular rate, regular rhythm, S1 normal heart sound present and S2 normal heart sound present RATE: regular rate RHYTHM: regular rhythm HEART SOUNDS: S1 normal heart sound present, S2 normal heart sound present, no click, no gallops, no murmurs, no rubs and abnormal split S2 GI: COMMON NORMALS: Soft to palpation and No hepatosplenomegaly present PALPATION: Yes Soft to palpation, No Tenderness to palpation present (GI), No Guarding due to palpation present (GI), No Rigid due to palpation, Yes No hepatosplenomegaly present, No Hernia present, No Palpable mass present and No Pulsatile mass present : COMMON NORMALS: Yes no CVA tenderness BLADDER/KIDNEY EXAM: Yes no CVA tenderness EXTERNAL FEMALE EXAM: No Hernia present Back/Pelvis: COMMON NORMALS: no CVA tenderness, thoracic and lumbar spine normal to inspection, no thoracic nor lumbar tenderness and thoraco-lumbar ROM normal Extremity: COMMON NORMALS: normal to inspection, full ROM, capillary refill normal, no joint enlargement, no clubbing, cyanosis or edema and no calf tenderness Neuro: COMMON NORMALS: patient oriented x3, CN's II-XII intact bilaterally, moves all extremities, no focal motor deficits and no sensory deficits noted MENINGEAL SIGNS: Yes no meningeal signs SPEECH: speech normal Psych: COMMON NORMALS: mental status grossly normal, Normal thought process present, cooperative, normal affect, speech normal and activity/motor behavior normal APPEARANCE: Yes well kempt SPEECH: Yes normal speech THOUGHT PROCESS: Normal thought process present Skin: COMMON NORMALS: no rashes or lesions noted, turgor normal, no jaundice, no petechiae and no mottling GENERAL SKIN EXAM: no rashes or lesions noted and turgor normal Course Vital Signs: Vital signs: Vital Signs Temperature 97.8 F 01/16/20 13:29 Pulse Rate 79 01/16/20 14:31 Respiratory Rate 15 01/16/20 14:31 Blood Pressure 168/108 01/16/20 14:31 Pulse Oximetry 98 01/16/20 14:31 MDM - Headache MDM Narrative: Medical decision making narrative: 1426 -patient states her headache is markedly improved. She states at its worst was a 10 out of 10 and now it is down to a 3 or 4 out of 10. She still has some of her Tylenol to finish and I will add 1 dose of Toradol here. Patient is feeling much better and is ready to go home. I see no evidence of meningitis or subarachnoid hemorrhage. The patient states that she is feeling good and would like to be discharged. I will send her home with instructions return if her symptoms worsen or change. Discharge Plan Discharge Patient Disposition: Home Clinical Impression: Migraine Qualifiers: Migraine type: without aura Status migrainosus presence: with status migrainosus Intractability: not intractable Qualified Code(s): G43.001 - Migraine without aura, not intractable, with status migrainosus Condition: Stable Prescriptions: No Action buspirone 10 mg tablet 40 mg PO BID RF: 0 meloxicam [Mobic] 7.5 mg tablet 7.5 mg PO BID Qty: 60 RF: 2 gabapentin 600 mg tablet 600 mg PO TID Qty: 90 RF: 2 topiramate [Topamax] 200 mg tablet 200 mg PO BID RF: 0 venlafaxine [Effexor XR] 150 mg capsule,extended release 24hr 150 mg PO DAILY Qty: 30 RF: 2 Ozempic 0.25 mg or 0.5 mg(2 mg/1.5 mL) pen injector 0.25 mg SUBCUT .WEEKLY RF: 0 zonisamide [Zonegran] 100 mg capsule 400 mg PO DAILY Qty: 120 RF: 5 ferrous gluconate [Ferate] 240 mg (27 mg iron) tablet 240 mg PO QDAY RF: 0 fluticasone propionate [Allergy Relief (fluticasone)] 50 mcg/actuation spray,suspension 2 spray INTRANASAL QDAY RF: 0 hydroxyzine HCl 25 mg tablet 25 mg PO BID PRN (Reason: unknown) RF: 0 ropinirole 1 mg tablet 1 mg PO QDAY RF: 0 tizanidine 4 mg capsule 8 mg PO BID RF: 0 hydrocodone-acetaminophen 5-325 mg tablet 1 tab PO Q8H PRN (Reason: pain) Qty: 10 RF: 0 Protonix 40 mg tablet,delayed release (DR/EC) 40 mg PO BIDWM 42 Days Qty: 42 RF: 3 Discharge Orders: Discharge Order (Routine); Ordered 01/16/20 Ordered By: Fanny Paz Referrals: Joan Ferreira MEDICATION RECONCILIATION TECHNICIAN [Primary Care Provider] - 1-3 days Discharge Diet: Advance as tolerated Discharge Activity: Increase activity as tolerated Patient Instructions: Migraine Headache (ED) Activity Restrictions/Additional Instructions: Please return to the ER immediately for any of the signs or symptoms listed on your discharge instruction sheets, worsening/changing of your symptoms, you are not getting better as quickly as expected, or for ANY other cause or concerns. Coding Level of Care Code ED Pharmaceutical Sales Specialist for Chg Fwd Exam Comprehensive
[2020-01-16] MEDS: diphenhydrAMINE 50 mg/mL SDV 1mL IVP (14:30)
[2020-01-16] MEDS: sodium chloride 0.9% 1,000 ML 999 ML IV (14:30)
[2020-01-16] MEDS: metoclopramide 5 mg/mL SDV 2 mL 10 MG IV (14:30)
[2020-01-16 14:31] VITALS: BP 168/108; PULSE 79; RESP 15; O2SAT 98
[2020-01-16] MEDS: ketorolac 30 mg/mL INJ 10 MG IVP (15:17)
[2020-01-16 16:24] VITALS: BP 132/71; PULSE 77; RESP 14; O2SAT 97
== END 2020-01-16 16:25 | disposition home or self-care (01) ==
PROVIDERS: Emergency Provider Emergency Medicine; PCP Nurse Practitioner Family
DX: G43.001 Migraine without aura, not intractable, with status migrainosus (principal); Z87.891 Personal history of nicotine dependence
CPT/HCPCS: 12345; 96361; 96374; 96375; 99282; 99283; J0131; J1200; J1885; J2765; J7030

== ENCOUNTER → 2020-01-18 10:29 | Outpatient (BNVA) | payer MEDICAID, SELFPAY | PROVIDERS: PCP Nurse Practitioner Family; Visit Provider Internal Medicine | DX: Z79.899 Other long term (current) drug therapy (principal); M19.90 Unspecified osteoarthritis, unspecified site; M47.819 Spondylosis without myelopathy or radiculopathy, site unspecified | CPT/HCPCS: 36415; 80076; 82565; 85025; 85651; 86140 ==

== ENCOUNTER 2020-01-31 06:00 | Outpatient (RCR) | payer MEDICAID, SELFPAY | END 2020-02-16 23:59 | disposition home or self-care (01) | LOC: MPT 06:00 | PROVIDERS: PCP Nurse Practitioner Family; Referring Provider Internal Medicine Rheumatology; Visit Provider Internal Medicine Rheumatology | DX: M54.9 Dorsalgia, unspecified (principal); M54.2 Cervicalgia; G89.29 Other chronic pain | CPT/HCPCS: 99204 ==

== ENCOUNTER 2020-02-02 03:30 | Observation (INO) | payer MEDICAID, SELFPAY ==
[2020-02-02] VITALS (12 sets, daily range): BP systolic 85–153; BP diastolic 27–93; PULSE 57–102; RESP 16–36; TEMP 36.5–36.7; O2SAT 95–99; BMI 49.4
--- NOTE | 2020-02-02 03:33 | ECG_ITS ---
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 Measurements Intervals [place] Rate: 69 P: 30 GA: 175 QRS: 26 QRSD: 90 T: 64 QT: 402 QTc: 432 Interpretive Statements SINUS RHYTHM NONSPECIFIC T-WAVE ABNORMALITY INTERPRETATION BASED ON A DEFAULT AGE OF 40 YEARS Compared to ECG 04/25/2019 17:34:48 No significant changes Electronically Signed On 02-02-2020 19:36:48 CDT by Mohan Huffman M.D. [id number]
--- NOTE | 2020-02-02 03:33 | CTR_ITS ---
PROCEDURE INFORMATION: Exam: CT Head Without Contrast Exam date and time: 02/02/2020 3:41 AM Age: 39 years old Clinical indication: Altered mental status/memory loss and speech disturbance and weakness, facial; Confusion or disorientation; Slurred speech; Additional info: CVA TECHNIQUE: Imaging protocol: Computed tomography of the head without contrast. Radiation optimization: All CT scans at this facility use at least one of these dose optimization techniques: automated exposure control; mA and/or kV adjustment per patient size (includes targeted exams where dose is matched to clinical indication); or iterative reconstruction. Other technique: STROKE PROTOCOL was implemented. COMPARISON: CT head wo con* [id number] 04/25/2019 3:35 PM RADIATION DOSE METRICS: Total DLP (mGy-cm): 914.74 FINDINGS: Brain: No hemorrhage. No edema, mass effect or midline shift. Ventricles: No ventriculomegaly. Bones/joints: No acute fracture. Paranasal sinuses: Visualized sinuses are unremarkable. No fluid levels. Mastoid air cells: No mastoid effusion. Soft tissues: Unremarkable. CT/CT head wo con* [id number] IMPRESSION: No acute intracranial abnormality. ASSESSMENT: ASPECTS ([place] Stroke Program Early CT Score) is 10. Radiation Dose CTDIVOL = (mGy): DLP = 914.74 (mGy-cm)
--- NOTE | 2020-02-02 03:33 | XR_ITS ---
WS: [id number] EXAM: AP CHEST: PORTABLE UPRIGHT DATE OF EXAM: 02/02/2020, 0354 hours COMPARISON: Chest x-ray from 04/25/2019. HISTORY: Patient is 39 years old with stroke like symptoms. FINDINGS: The cardiac silhouette is normal in size. The mediastinal contours are similar. Fullness in both h ilar regions felt to be vascular. The pulmonary vascularity is normal. Poor inspiratory effort is noted. Slight vascular crowding is seen. Lungs otherwise clear. There is no effusion or pneumothorax . No acute bony abnormality is seen. XR/XR chest 1V portable [id number] IMPRESSION: Poor inspiratory effort. No acute pulmonary disease.
--- NOTE | 2020-02-02 03:45 | W.ED.NEUROSD ---
HPI - Neuro Symptoms/Deficit General: Chief Complaint: Neuro Symptoms/Deficit Stated Complaint: Stroke Like Symptoms Time Seen by Provider: 02/02/20 03:33 Source: patient Mode of arrival: EMS Limitations: no limitations History of Present Illness: HPI Narrative: 39-year-old female who states that she woke up this morning at midnight and felt like she was paralyzed. She states she could not talk or move. She states she is also covered in sweat. Patient states this lasted roughly 1 to 2 hours. All symptoms have resolved and she has no weakness at this time. She denies any headache. Denies any worsening or improving factors. Denies any fevers. Associated symptoms: Deny chest pain, nausea or vomiting Review of Systems Const: Denies: fever(s), chills, body aches or change in appetite Eyes: Denies: blurry vision or eye discomfort ENMT: Denies: throat pain or dental pain Card: Denies: chest pain Resp: Denies: dyspnea GI: Denies: abdominal pain, nausea, vomiting or diarrhea : Denies: dysuria Musc: Denies: neck pain or back pain Skin/Breast: Denies: rash Neuro: Reports: weakness in extremities Psych: Denies: depression Jim/Lymph: Denies: easy bruising All/Imm: Denies: urticaria PFSH ED PFSH: Medical History Depression Fibromyalgia Gastritis Inflammatory arthritis Intervertebral disc disorder with radiculopathy of lumbar region PTSD (post-traumatic stress disorder) Sacroiliitis Spondylarthritis Undifferentiated connective tissue disease Surgical History H/O esophagogastroduodenoscopy 08/02/2019: Gastric erosions History of cholecystectomy History of dilation and curettage History of tonsillectomy History of tubal ligation Family History Mother Arthritis Heart disease Stroke Father Cancer Diabetes Heart disease Kidney disease Social History Smoking and tobacco status: former smoker Alcohol intake: never Household members: children Marital status: Current occupational status: unemployed History of recent travel: No Female Reproductive History: Date of last menstrual period: 11/20/19 Physical Exam Const: COMMON NORMALS: no acute distress, patient oriented x3 and healthy appearing HENMT: COMMON NORMALS: normocephalic and atraumatic HEAD & SCALP: normocephalic and atraumatic Eye: COMMON NORMALS: Equal, round and reactive pupils present and EOMs intact bilaterally PUPIL: Yes Equal, round and reactive pupils present Neck/C-Spine: COMMON NORMALS: full ROM and supple Chest: COMMONS NORMALS: normal inspection of the chest and normal palpation of entire chest wall Resp: COMMON NORMALS: normal respiratory effort, No retractions, No use of accessory muscles and clear to auscultation bilaterally AUSCULTATION: clear to auscultation bilaterally Cardio: COMMON NORMALS: regular rate, regular rhythm and No murmurs present (Cardio) RATE: regular rate RHYTHM: regular rhythm GI: COMMON NORMALS: Normal to inspection, nondistended, normoactive bowel sounds present, Soft to palpation, non-tender and no masses PALPATION: Yes Soft to palpation Extremity: COMMON NORMALS: normal to inspection and full ROM Neuro: COMMON NORMALS: patient oriented x3, moves all extremities and no focal motor deficits Psych: COMMON NORMALS: mental status grossly normal, Normal thought process present and cooperative THOUGHT PROCESS: Normal thought process present Skin: COMMON NORMALS: no rashes or lesions noted and no wounds GENERAL SKIN EXAM: no rashes or lesions noted Course Vital Signs: Vital signs: Vital Signs Temperature 98.1 F 02/02/20 03:32 Pulse Rate 67 02/02/20 04:30 Respiratory Rate 17 02/02/20 04:30 Blood Pressure 85/37 02/02/20 04:30 Pulse Oximetry 95 02/02/20 04:30 MDM - Neuro Symptoms/Deficit MDM Narrative: Medical decision making narrative: Patient presents here with TIA-like symptoms. Patient is not a TPA candidate as her symptoms of completely resolved. Patient is well-appearing here patient's head CT and EKG and lab work are all normal. I spoke to hospitalist will admit for her TIA. Lab Data: Labs: Lab Results 02/02/20 02/02/20 Range/Units 04:21 04:21 WBC 6.4 (4.0-10.0) 10^3/ uL RBC 3.95 L (4.1-5.3) 10^6/u L Hgb 10.3 L (11.5-15.3) g/dL Hct 34.1 L (37.0-47.0) % MCV 86.3 (81-99) fL MCH 26.1 L (28.0-34.0) pg MCHC 30.2 (30.0-36.0) g/dL RDW 13.5 (12.1-15.1) % Plt Count 259 (130-400) 10^3/c mm MPV 10.8 H (7.4-10.4) fL Neut % (Auto) 64.4 % Lymph % (Auto) 25.8 % [place] % (Auto) 6.8 % Eos % (Auto) 2.2 % Baso % (Auto) 0.6 % Neut # (Auto) 4.15 (1.8-7.7) 10^3/u L Lymph # (Auto) 1.7 (0.8-4.8) 10^3/u L [place] # (Auto) 0.4 (0.2-0.9) 10^3/u L Eos # (Auto) 0.1 (0.0-0.8) 10^3/u L Baso # (Auto) 0.0 (0.0-0.1) 10^3/u L Nucleated RBC % (a uto) 0 % Nucleated RBCs # 0.0 /100WBC Sodium 137 (136-145) mmol/L Potassium 3.8 (3.5-5.1) mmol/L Chloride 107 (98-107) mmol/L Carbon Dioxide 20 L (22-29) mmol/L Anion Gap 13.8 (5-19) BUN 11 (6-20) mg/dL Creatinine 0.8 (0.5-0.9) mg/dL GFR Calculation 79.0 L (90-130) mL/min Glucose 147 H (65-115) mg/dL Calculated Osmolal ity 283 L (285-295) mOsm/k g Calcium 8.5 (8.5-10.5) mg/dL Total Bilirubin 0.2 (0.15-1.2) mg/dL AST 20 (0-32) U/L ALT 20 (0-33) U/L Alkaline Phosphata se 69 (35-105) IU/L Total Protein 6.8 (6.6-8.7) g/dL Albumin 4.2 (3.5-5.2) g/dL Globulin 2.6 (1.3-4.6) g/dL Imaging Data^: CXR: My impression: no acute abnormality CT Head: Radiologist's impression: [address] [place] [address] CT Scan Report Signed Patient: Lorri Hernandes Unit #: [id number] : 1980 Age/Sex: 39 / F ADM Date: 02/02/20 Loc: ER Room/Bed: Attending Dr: Ordering Provider/Ordering MD: Coretta Cortez MD Date of Service: 02/02/20 Procedure(s): CT head wo con* [id number] Accession Number(s): [id number] Report Number: [id number] PROCEDURE INFORMATION: Exam: CT Head Without Contrast Exam date and time: 02/02/2020 3:41 AM Age: 39 years old Clinical indication: Altered mental status/memory loss and speech disturbance and weakness, facial; Confusion or disorientation; Slurred speech; Additional info: CVA TECHNIQUE: Imaging protocol: Computed tomography of the head without contrast. Radiation optimization: All CT scans at this facility use at least one of these dose optimization techniques: automated exposure control; mA and/or kV adjustment per patient size (includes targeted exams where dose is matched to clinical indication); or iterative reconstruction. Other technique: STROKE PROTOCOL was implemented. COMPARISON: CT head wo con* [id number] 04/25/2019 3:35 PM RADIATION DOSE METRICS: Total DLP (mGy-cm): 914.74 FINDINGS: Brain: No hemorrhage. No edema, mass effect or midline shift. Ventricles: No ventriculomegaly. Bones/joints: No acute fracture. Paranasal sinuses: Visualized sinuses are unremarkable. No fluid levels. Mastoid air cells: No mastoid effusion. Soft tissues: Unremarkable. CT/CT head wo con* [id number] IMPRESSION: No acute intracranial abnormality. ASSESSMENT: EKG Data^: EKG 1: Attestation: I personally reviewed and interpreted this EKG as follows: EKG interpretation date: 02/02/20 EKG interpretation time: 03:48 Interpretation: Normal sinus rhythm nonspecific T wave abnormality QRS 90 QTC 421 Discharge Plan Discharge Patient Disposition: Admitted As Inpatient Clinical Impression: Transient cerebral ischemia Qualifiers: Transient cerebral ischemia type: unspecified Qualified Code(s): G45.9 - Transient cerebral ischemic attack, unspecified Condition: Stable Referrals: Joan Ferreira FNP [Primary Care Provider] - Coding Level of Care Code ED [employer]ist[employer] for Chg Fwd Exam Comprehensive
[2020-02-02 04:36] LABS: Basophils % 0.6 %; Eosinophils # 0.1 10^3/uL (0.0-0.8); Eosinophils % 2.2 %; Hematocrit 34.1 % (37.0-47.0); Hemoglobin 10.3 g/dL (11.5-15.3); Lymphocytes # 1.7 10^3/uL (0.8-4.8); Lymphocytes % 25.8 %; Mean Corpuscular HGB Conc 30.2 g/dL (30.0-36.0); Mean Corpuscular Hemoglobin 26.1 pg (28.0-34.0); Mean Corpuscular Volume 86.3 fL (81-99); Mean Platelet Volume 10.8 fL (7.4-10.4); Monocytes # 0.4 10^3/uL (0.2-0.9); Monocytes % 6.8 %; Neutrophils # 4.15 10^3/uL (1.8-7.7); Neutrophils % 64.4 %; Nucleated Red Blood Cells % 0 %; Platelet Count 259 10^3/cmm (130-400); Red Blood Count 3.95 10^6/uL (4.1-5.3); Red Cell Distribution Width 13.5 % (12.1-15.1); White Blood Count 6.4 10^3/uL (4.0-10.0)
[2020-02-02 04:57] LABS: Alanine Aminotransferase 20 U/L (0-33); Albumin Level 4.2 g/dL (3.5-5.2); Alkaline Phosphatase 69 IU/L (35-105); Anion Gap 13.8 (5-19); Aspartate Amino Transferase 20 U/L (0-32); Blood Urea Nitrogen 11 mg/dL (6-20); Calcium 8.5 mg/dL (8.5-10.5); Carbon Dioxide 20 mmol/L (22-29); Chloride 107 mmol/L (98-107); Globulin 2.6 g/dL (1.3-4.6); Glucose 147 mg/dL (65-115); Osmolality Calculated 283 mOsm/kg (285-295); Potassium 3.8 mmol/L (3.5-5.1); Sodium 137 mmol/L (136-145); Total Bilirubin 0.2 mg/dL (0.15-1.2); Total Protein 6.8 g/dL (6.6-8.7)
[2020-02-02] MEDS: aspirin 81 mg Chew Tablet 324 MG PO (05:25)
--- NOTE | 2020-02-02 05:36 | P.HP_ITS ---
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 Patient is stating that around midnight she was talking with her 19-year-old daughter when she started experiencing some dizziness which she could tell before passing out at something was not right, she thinks she passed out for about 2 hours, after 2 hours when she woke up she noticed contracture of right arm and slurred speech for which she was sent to the hospital for further evaluation. When she woke up she could not talk, she experienced chest heaviness and shortness of breath, she felt like she was paralyzed her symptoms resolved after few minutes, she did not notice any tongue bite, urinary or bowel incontinence. Patient is stating that when s he gets breakthrough seizures she mostly experiences contracture of her extremities without any tremors. Of note, patient is stating that in the morning when she was driving she passed, she would get multiple spells of zoning out/dizziness, she struggled to find her way back home, luckily no car accident, at home when she was typing text message to her daughter she experienced multiple dizzy spells for few seconds and had difficulty concentrating. Her symptoms resolved completely when she experienced a popping sensation at the back of her head. She did not experience any headache Her previous records revealed that she does have history of similar complaints in the past, for which she has followed up with Dr. Walls she has done MRI, EEG, she is currently being treated as partial non-epileptiform seizure. For her migraine she is on venlafaxine, Topamax and for seizures she is taking zonisamide. On arrival in the ER NIH score 0, CT head negative, not a candidate of TPA, normal hemodynamic Normal blood chemistry and CBC Review of Systems Const: Reports: fatigue and malaise; Denies: fever(s), chills or body aches Eyes: Denies: change in vision ENMT: Denies: throat pain Card: Denies: chest pain Resp: Denies: dyspnea GI: Denies: abdominal pain : Denies: flank pain Musc: Reports: muscle cramps Skin/Breast: Denies: rash Neuro: Denies: headache(s) Psych: Reports: anxiety and difficulty concentrating Endo: Denies: polyuria Jim/Lymph: Denies: easy bruising All/Imm: Denies: urticaria Medications/Allergies Home Medications Medication Instructions Recorded Confirmed Last Taken Type ferrous gluconate 240 mg (27 mg 240 mg PO QDAY 06/03/19 01/31/20 1 Day Ago Histo ry iron) tablet ~08/01/19 fluticasone propionate 50 2 spray INTRANASAL QDAY 06/03/19 01/31/20 1 Week Ago History mcg/actuation nasal ~07/26/19 spray,suspension hydroxyzine HCl 25 mg tablet 25 mg PO BID PRN 06/03/19 01/31/20 1 Day Ago History ~08/01/19 ropinirole 1 mg tablet 1 mg PO QDAY 06/03/19 01/31/20 1 Day Ago History ~08/01/19 buspirone 10 mg tablet 40 mg PO BID tab 07/27/19 01/31/20 1 Day Ago History ~08/01/19 gabapentin 600 mg tablet 600 mg PO TID #90 tab 07/27/19 01/31/20 1 Day Ago Rx ~08/01/19 meloxicam 7.5 mg tablet 7.5 mg PO BID #60 tab 07/27/19 01/31/20 1 Day Ago Rx ~08/01/19 pantoprazole [Protonix] 40 mg PO BIDWM 42 Days #42 tab 08/02/19 01/31/20 Unknown Rx semaglutide 0.25 mg SUBCUT .WEEKLY ml 09/09/19 01/31/20 Unknown History tizanidine 4 mg capsule 8 mg PO BID cap 11/02/19 01/31/20 Unknown History zonisamide 100 mg capsule 400 mg PO DAILY #120 cap 11/17/19 01/31/20 Unknown Rx topiramate 200 mg tablet 200 mg PO BID 12/23/19 01/31/20 Unknown History venlafaxine 150 mg 150 mg PO DAILY #30 cap 08/06/20 09/14/20 Unknown Rx capsule,extended release 24 hr Allergies Allergy/AdvReac Type Severity Reaction Status Date / Time No Known Allergies Allergy Verified 12/23/19 14:46 PFSH Acute PFSH: Medical History Depression Fibromyalgia Gastritis Inflammatory arthritis Intervertebral disc disorder with radiculopathy of lumbar region PTSD (post-traumatic stress disorder) Sacroiliitis Spondylarthritis Undifferentiated connective tissue disease Surgical History H/O esophagogastroduodenoscopy 08/02/2019: Gastric erosions History of cholecystectomy History of dilation and curettage History of tonsillectomy History of tubal ligation Family History Mother Arthritis Heart disease Stroke Father Cancer Diabetes Heart disease Kidney disease Social History Smoking and tobacco status: former smoker Alcohol intake: never Household members: children Marital status: Current occupational status: unemployed History of recent travel: No Female Reproductive History: Date of last menstrual period: 11/20/19 Vitals/I&O/Wt Last Vital Signs Temp 98.1 F 02/02/20 03:32 Pulse 71 02/02/20 05:30 Resp 19 H 02/02/20 05:30 BP 108/46 02/02/20 05:30 Pulse Ox 99 02/02/20 05:30 Weight last 48 hrs Weight 122.47 kg Physical Exam Narrative: EXAM NARRATIVE: Middle-age female currently sitting comfortably in her bed NIH score 0 No neurological deficit Facial asymmetry No cerebellar sign No gaze preference S1, S2, heart rate fluctuating between 60-66 No active chest Abdomen soft distended bowel sound present Lungs are clear to auscultation Lower extremity brisk reflexes, no myoclonus noted, sensations intact in all extremities No signs of tongue bite No edema gangrene of ulcer of lower extremity Data : 02/02/20 04:21 02/02/20 04:21 A&P Assessment and plan (1) Functional neurological symptom disorder with attacks or seizures: Status: Acute (2) Transient cerebral ischemia: Status: Acute Qualifiers: Transient cerebral ischemia type: unspecified Qualified Code(s): G45.9 - Transient cerebral ischemic attack, unspecified (3) Facet arthropathy, lumbar: Status: Acute (4) Degenerative lumbar disc: Status: Acute (5) Posttraumatic stress disorder: Status: Acute (6) Gastritis: Status: Acute (7) Sacroiliitis: Status: Acute Additional A&P Information TIA versus functional non epileptic seizure attack CT head unremarkable, NIH 0 MRI previously did not show any acute abnormality Degenerative joint disease noticed Brisk reflexes of deep tendon without myoclonus, no sensory loss or urinary/bowel incontinence I would obtain CTA head and neck Previous EEG did not reveal any epileptiform waves, Continue her antiepileptics for now Patient currently is denying migraine headache We will check prolactin level She has been following up with Dr. Walls, she might be able to give us insight regarding her neurological status since she has done a lot of work-up regarding her similar complaints Gastritis: Continue proton Avoid NSAIDs Complex hemiplegic migraine I would continue Topamax, venlafaxine No active headache Sacroiliitis HLA-B27 negative, PALOMO positive Following up with rheumatology, certified forklift operator is thinking of trial of anti-TNF, Enbrel, Full code DVT prophylaxis Lovenox Cardiac diet Attestations Medical Necessity Statement*: Anticipating discharge in less than [address] head and neck for her neurological complaints Time Spent in Patient Care: (>than 50% of time spent in counselling and/or direct pt care on unit) . 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
--- NOTE | 2020-02-02 06:28 | CTR_ITS ---
PROCEDURE INFORMATION: Exam: CT Angiography Head Without And With Contrast Exam date and time: 02/02/2020 6:35 AM Age: 39 years old Clinical indication: Speech disturbance and syncope and collapse and weakness; Patient HX: Sudden onset of syncope with RT hemiplegia and slurred speech. TECHNIQUE: Imaging protocol: Computed tomographic angiography of the head without and with intravenous contrast. 3D rendering (Not supervised by radiologist): MIP and/or 3D reconstructed images were created by the technologist. Radiation optimization: All CT scans at this facility use at least one of these dose optimization techniques: automated exposure control; mA and/or kV adjustment per patient size (includes targeted exams where dose is matched to clinical indication); or iterative reconstruction. Contrast material: OMNI 350; Contrast volume: 95 ml; Contrast route: INTRAVENOUS (IV); COMPARISON: CT head wo con* [id number] 02/02/2020 3:30 AM RADIATION DOSE METRICS: Total DLP (mGy-cm): 3212.49 FINDINGS: ANTERIOR CIRCULATION: Right internal carotid artery: Intracranial segment is patent with no significant stenosis or occlusion. No aneurysm. Right middle cerebral artery: No occlusion or significant stenosis. No aneurysm. Right anterior cerebral artery: No occlusion or significant stenosis. No aneurysm. Left internal carotid artery: Intracranial segment is patent with no significant stenosis. No aneurysm. Left middle cerebral artery: No occlusion or significant stenosis. No aneurysm. Left anterior cerebral artery: No occlusion or significant stenosis. No aneurysm. POSTERIOR CIRCULATION: Right vertebral artery: No occlusion or significant stenosis. No aneurysm. Left vertebral artery: No occlusion or significant stenosis. No aneurysm. Basilar artery: No occlusion or significant stenosis. No aneurysm. Right posterior cerebral artery: No occlusion or significant stenosis. No aneurysm. Left posterior cerebral artery: No occlusion or significant stenosis. No aneurysm. HEAD: Brain: Unremarkable. No acute intracranial hemorrhage. No significant white matter disease. No edema. Cerebral ventricles: Normal. No ventriculomegaly. Bones/joints: Unremarkable. No acute fracture. Paranasal sinuses: Visualized sinuses are normal. No fluid levels. Mastoid air cells: Visualized mastoids are normal. No mastoid effusion. Soft tissues: Unremarkable. IMPRESSION: No large vessel occlusion. PROCEDURE INFORMATION: Exam: CT Angiography Neck With Contrast Exam date and time: 02/02/2020 6:35 AM Age: 39 years old Clinical indication: Speech disturbance and syncope and collapse and weakness; Patient HX: Sudden onset of syncope with RT hemiplegia and slurred speech. TECHNIQUE: Imaging protocol: Computed tomography angiography of the neck with intravenous contrast. 3D rendering (Not supervised by radiologist): MIP and/or 3D reconstructed images were created by the technologist. Radiation optimization: All CT scans at this facility use at least one of these dose optimization techniques: automated exposure control; mA and/or kV adjustment per patient size (includes targeted exams where dose is matched to clinical indication); or iterative reconstruction. Contrast material: OMNI 350; Contrast volume: 95 ml; Contrast route: INTRAVENOUS (IV); COMPARISON: CT head wo con* [id number] 02/02/2020 3:30 AM RADIATION DOSE METRICS: Total DLP (mGy-cm): 3212.49 FINDINGS: Right common carotid artery: No stenosis. No dissection or occlusion. Right internal carotid artery: No stenosis of the extracranial segment. No dissection or occlusion. Right external carotid artery: No occlusion or stenosis of the origin. Right vertebral artery: No stenosis. No dissection or occlusion. Left common carotid artery: No stenosis. No dissection or occlusion. Left internal carotid artery: No stenosis of the extracranial segment. No dissection or occlusion. Left external carotid artery: No occlusion or stenosis of the origin. Left vertebral artery: No stenosis. No dissection or occlusion. Bones/joints: No acute fracture. Soft tissues: Normal. No significant soft tissue swelling. CT/CT angio headneck* [id number] IMPRESSION: No stenosis or occlusion. REFERENCES: NASCET CRITERIA. The degree of internal carotid artery stenosis is based on NASCET criteria. Normal is no stenosis. Mild is less than 50% stenosis. Moderate is 50-69% stenosis. Severe is 70% to 99% stenosis. Total occlusion is no detectable patent lumen. Radiation Dose CTDIVOL = (mGy): DLP = 3212.49~3212.49 (mGy-cm)
[2020-02-02] MEDS: iohexol 350 mg/mL 100 mL Btl IV (07:02)
[2020-02-02 07:21] LABS: Prolactin 1.01 ng/mL (4.8-23.3)
[2020-02-02 07:27] LABS: Glucose Point of Care 124 mg/dL (70-110)
[2020-02-02] MEDS: enoxaparin 40 mg/0.4 mL Syringe SUBCUT (08:01)
[2020-02-02] MEDS: BuSPIRONE 10 mg Tablet 40 MG PO ×2 (08:53→17:06)
[2020-02-02] MEDS: ropinirole 1 mg Tablet PO (08:53)
[2020-02-02] MEDS: topiramate 100 mg Tablet 200 MG PO ×2 (08:54→17:06)
[2020-02-02] MEDS: venlafaxine ER (24HR) 150 mg Capsule PO (08:54)
[2020-02-02] MEDS: pantoprazole DR 40 mg Tablet PO (08:54)
--- NOTE | 2020-02-02 11:08 | PC.NURSE ---
pt states I have a funny feeling. My left arm and hand are twitching and tingling. And my head feels like it is twitching with some heat san and pressure inside. pt vitals signs are stable at this time. blood sugar is 141. dr notified. pt stated the feeling went away but pain in my neck is sharper. this feeling lasted approximately 8 minutes.
[2020-02-02 11:24] LABS: Glucose Point of Care 141 mg/dL (70-110)
--- NOTE | 2020-02-02 11:56 | PC.NURSE ---
pt assisted to restroom. feeling numbness and tingling in fingers and hands again. states that her lip were tingling earlier.
[2020-02-02 16:29] LABS: Glucose Point of Care 95 mg/dL (70-110)
--- NOTE | 2020-02-02 19:43 | PC.NURSE ---
Rounding: Patient resting in bed. Patient alert and oriented. Patient denies any pain. Patient assisted to the bathroom patient needed standby assistance. Will continue to monitor.
[2020-02-02 20:22] LABS: Glucose Point of Care 165 mg/dL (70-110)
--- NOTE | 2020-02-02 22:06 | P.PN_ITS ---
Subjective Subjective: Interval history: overnight labs and H&P reviewed. No acute interim events. Intermittently c/o some numbness in tips of fingers but no further seziure like activity. Medications: Reviewed: Yes Vitals/I&O/Wt Last Vital Signs Temp 98.1 F 02/02/20 20:00 Pulse 75 02/02/20 20:00 Resp 36 H 02/02/20 20:00 BP 119/76 02/02/20 20:00 Pulse Ox 98 02/02/20 20:00 02/02/20 02/02/20 02/02/20 06:59 14:59 22:59 Intake Total 480 / 480 300 / 780 Balance 480 / 480 300 / 780 Weight last 48 hrs Weight 122.47 kg Physical Exam Const: COMMON NORMALS: no acute distress, average body habitus, patient oriented x3, no limitations, healthy appearing, alert and well nourished HENMT: COMMON NORMALS: normocephalic and atraumatic HEAD & SCALP: normocephalic and atraumatic Eye: COMMON NORMALS: Equal, round and reactive pupils present, EOMs intact bilaterally, conjunctivae normal and no scleral icterus CONJUNCTIVA: Yes conjunctivae normal PUPIL: Yes Equal, round and reactive pupils present Neck/C-Spine: COMMON NORMALS: no JVD Resp: COMMON NORMALS: normal respiratory effort, No retractions, No use of accessory muscles, clear to auscultation bilaterally and percussion normal AUSCULTATION: clear to auscultation bilaterally PERCUSSION: percussion normal Cardio: COMMON NORMALS: no JVD, regular rate, regular rhythm, S1 normal heart sound present, S2 normal heart sound present, No gallops present (Cardio), No clicks present (Cardio), No murmurs present (Cardio), No rub (Cardio) and Peripheral pulses 2+ throughout RATE: regular rate RHYTHM: regular rhythm HEART SOUNDS: S1 normal heart sound present and S2 normal heart sound present PERIPHERAL PULSES: Peripheral pulses 2+ throughout GI: COMMON NORMALS: Normal to inspection, nondistended, normoactive bowel sounds present, Soft to palpation, non-tender, No hepatosplenomegaly present, no masses and no bruits PALPATION: Yes Soft to palpation and Yes No hepatosplenomegaly present Extremity: COMMON NORMALS: normal to inspection, full ROM, capillary refill normal, no joint enlargement, no clubbing, cyanosis or edema, no calf tenderness and no pedal edema Neuro: COMMON NORMALS: patient oriented x3, CN's II-XII intact bilaterally, moves all extremities, no focal motor deficits, no sensory deficits noted, deep tendon reflexes 2+ bilaterally and gait normal SENSORIUM/ORIENTATION: Yes alert Psych: COMMON NORMALS: mental status grossly normal, Normal thought process present, cooperative, normal affect, speech normal, activity/motor behavior normal, denies hallucinations, denies homicidal ideation and denies suicidal ideation SPEECH: Yes normal speech THOUGHT PROCESS: Normal thought process present Skin: COMMON NORMALS: no rashes or lesions noted, no wounds, turgor normal, no jaundice, no petechiae and no mottling GENERAL SKIN EXAM: no rashes or lesions noted and turgor normal Data : 02/02/20 04:21 02/02/20 04:21 A&P Assessment and plan (1) Functional neurological symptom disorder with attacks or seizures: Status: Acute (2) Transient cerebral ischemia: Status: Acute Qualifiers: Transient cerebral ischemia type: unspecified Qualified Code(s): G45.9 - Transient cerebral ischemic attack, unspecified (3) Facet arthropathy, lumbar: Status: Acute (4) Degenerative lumbar disc: Status: Acute (5) Posttraumatic stress disorder: Status: Acute (6) Gastritis: Status: Acute (7) Sacroiliitis: Status: Acute Additional A&P Information TIA versus functional non epileptic seizure episode CT head, CTA head and neck unremarkable, NIH 0 MRI previously did not show any acute abnormality Previous EEG as outaptient did not reveal any epileptiform waves, Continue her antiepileptics for now. Reports today that her antiepileptics were changed one month ago wherein topamax was changed to valproate. Will discuss with Dr. Walls if any further titration needed for her seizure medications No events on telemetry Gastritis: Continue protonix Complex hemiplegic migraine I would continue Topamax, venlafaxine for now, will clarify her medications as outpatient Sacroiliitis HLA-B27 negative, PALOMO positive Following up with rheumatology Full code DVT prophylaxis Lovenox Cardiac diet Attestations Medical Necessity Statement*: continued observation for neuro status monitoing, any recurrence of seizures Coding Level of Care Code Acute Supervisor Sunglasses for [facility] Fwd Diagnoses Functional neurological symptom disorder with attacks or seizures F44.5 Transient cerebral ischemia G45.9 Transient cerebral ischemia type: unspecified Facet arthropathy, lumbar M47.816 Degenerative lumbar disc M51.36 Posttraumatic stress disorder F43.10 Gastritis K29.70 Sacroiliitis M46.1
[2020-02-03] VITALS: BP 103/72; PULSE 88; RESP 10; TEMP 36.8; O2SAT 99
[2020-02-03 04:00] VITALS: BP 121/84; PULSE 85; RESP 15; TEMP 36.5; O2SAT 99
[2020-02-03 05:47] LABS: Anion Gap 11.6 (5-19); Blood Urea Nitrogen 8 mg/dL (6-20); Calcium 9.2 mg/dL (8.5-10.5); Carbon Dioxide 21 mmol/L (22-29); Chloride 113 mmol/L (98-107); Glomerular Filtration Rate 61.1 mL/min (90-130); Glucose 109 mg/dL (65-115); Osmolality Calculated 293 mOsm/kg (285-295); Potassium 3.6 mmol/L (3.5-5.1); Sodium 142 mmol/L (136-145)
[2020-02-03 06:26] LABS: Glucose Point of Care 106 mg/dL (70-110)
[2020-02-03 07:09] VITALS: BP 136/85; PULSE 81; RESP 27; TEMP 36.4; O2SAT 99
[2020-02-03] MEDS: pantoprazole DR 40 mg Tablet PO (09:09)
[2020-02-03] MEDS: enoxaparin 40 mg/0.4 mL Syringe SUBCUT (09:09)
[2020-02-03] MEDS: topiramate 100 mg Tablet 200 MG PO (09:09)
[2020-02-03] MEDS: venlafaxine ER (24HR) 150 mg Capsule PO (09:09)
[2020-02-03] MEDS: ropinirole 1 mg Tablet PO (09:10)
[2020-02-03] MEDS: BuSPIRONE 10 mg Tablet 40 MG PO (09:23)
[2020-02-03 11:15] LABS: Glucose Point of Care 135 mg/dL (70-110)
[2020-02-03 12:00] VITALS: BP 112/79; PULSE 92; RESP 28; TEMP 37.1; O2SAT 98
--- NOTE | 2020-02-03 12:19 | P.DS_ITS ---
Discharge Providers Date of Admission: 02/02/20 05:20 Date of Discharge: February 03, 2020 Attending Provider at Admission: Rhiannon Blackwell MD Attending Provider at Discharge: Monica Kinney MD Primary Care Provider: Joan Ferreira Diagnoses at Discharge Discharge Diagnosis (1) Functional neurological symptom disorder with attacks or seizures: Status: Acute (2) Transient cerebral ischemia: Status: Acute Qualifiers: Transient cerebral ischemia type: unspecified Qualified Code(s): G45.9 - Transient cerebral ischemic attack, unspecified (3) Facet arthropathy, lumbar: Status: Acute (4) Degenerative lumbar disc: Status: Acute (5) Posttraumatic stress disorder: Status: Acute (6) Gastritis: Status: Acute (7) Sacroiliitis: Status: Acute Reason for Visit Reason for Visit: Stroke Like Symptoms Hospital Course Discharge Summary: Lorri Hernandes is a 39 year old female who carries significant past medical history of PTSD, has undergone MRI, EEG which was negative for epileptiform waves, has been diagnosed with complex migraine with hemiplegia, 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 This is an episode of passing out for about 2 hours while having a conversation with her daughter. When she woke up she noticed contracture of the right arm and slurred speech for which she was sent to the hospital for further evaluation. CT of the head and CTA were without any evidence of thromboembolism. There were no acute events on telemetry noted except for intermittent sinus tachycardia with a maximum heart rate of 101. There were no other witnessed similar events while she was here in the hospital. Patient was kept in observation and then discharged. Since presentation was discussed with Dr. Walls, who is her outpatient neurologist no medication changes were advised at this present time she is instructed to get an outpatient EEG and follow-up with the office of Dr. Walls. He is being discharged today in stable condition without any focal neurological deficits. Physical Exam Narrative: EXAM NARRATIVE: GEN: Awake, alert and oriented, no acute distress CVS: S1S2 N RS: CTA B/L Abd: Soft, nt/nd , bs+ PC TECHNICIAN: no focal neuro deficits Discharge Data Data Completed and Pending: Completed Studies During Hospitalization Category Date Time Status CT angio headneck * [id number] Stat Cat Scan 02/02/20 06:[address] head wo con* [id number] Urgent Cat Scan 02/02/20 03:33 Completed XR chest 1V fabrice ble [id number] Urgent Exams 02/02/20 03:33 Completed Labs from last 24 hours 02/03/20 02/03/20 02/03/20 11:00 06:07 04:20 Sodium 142 Potassium 3.6 Chloride 113 H Carbon Dioxide 21 L Anion Gap 11.6 BUN 8 Creatinine 1.0 H GFR Calculation 61.1 L Glucose 109 POC Glucose 135 106 Calculated Osmolal ity 293 Calcium 9.2 02/02/20 02/02/20 19:59 16:24 Sodium Potassium Chloride Carbon Dioxide Anion Gap BUN Creatinine GFR Calculation Glucose POC Glucose 165 95 Calculated Osmolal ity Calcium Vitals: Last Vital Signs Temp 98.7 F 02/03/20 10:56 Pulse 92 02/03/20 10:56 Resp 28 H 02/03/20 10:56 BP 112/79 02/03/20 10:56 Pulse Ox 98 02/03/20 10:56 Discharge Plan Discharge Patient Disposition: Home Condition: Stable Prescriptions: Continued buspirone 10 mg tablet 40 mg PO BID RF: 0 gabapentin 600 mg tablet 600 mg PO TID Qty: 90 RF: 2 venlafaxine [Effexor XR] 150 mg capsule,extended release 24hr 150 mg PO DAILY Qty: 30 RF: 2 zonisamide [Zonegran] 100 mg capsule 400 mg PO DAILY Qty: 120 RF: 5 Enbrel Mini 50 mg/mL (1 mL) cartridge 50 mg SUBCUT Q7D Qty: 4 RF: 3 ferrous gluconate [Ferate] 240 mg (27 mg iron) tablet 240 mg PO DAILY RF: 0 fluticasone propionate [Allergy Relief (fluticasone)] 50 mcg/actuation spray,suspension 2 spray INTRANASAL DAILY PRN (Reason: Nasal Congestion) RF: 0 hydroxyzine HCl 25 mg tablet 25 mg PO BID PRN (Reason: Anxiety) RF: 0 ropinirole 1 mg tablet 1 mg PO DAILY RF: 0 tizanidine 4 mg capsule 8 mg PO BID RF: 0 metformin 500 mg tablet 1,000 mg PO BID RF: 0 simvastatin 20 mg Tablet 20 mg PO DAILY RF: 0 semaglutide 3 mg Tablet 3 mg PO DAILY RF: 0 pantoprazole [Protonix] 40 mg tablet,delayed release (DR/EC) 40 mg PO BIDWM 42 Days Qty: 42 RF: 3 Discharge Orders: Discharge Order (Routine); Ordered 02/03/20 Ordered By: Monica Kinney Other Ambulatory Orders: EEG electroencephalogram (Routine) Timeframe: 1 Week Facility: [facility] - Location: Neurology Ordered By: Monica Kinney DME: Walker (Order) Location: None Selected Ordered By: Monica Kinney Referrals: Macarena Walls MD [Physician] - 1 month (Dr. Walls's office will be calling you to schedule a hospital followup. If you don't hear from them by Friday afternoon, please call them. ) Joan Ferreira FNP [Primary Care Provider] - 7-10 days (Joan Tellez's office will be calling to schedule a hospital followup to be seen in 7 to 10 days. If you don't hear from them by Tomorrow afternoon, please give them a call. 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
[2020-02-03 13:08] VITALS: BP 112/79; PULSE 92; RESP 28; TEMP 37.1; O2SAT 98
--- NOTE | 2020-02-03 13:39 | PC.NURSE ---
pt denies any tingling in fingers today.has been up ad evans in room and tolerating activity well.
--- NOTE | 2020-02-03 14:01 | PC.NURSE ---
discharge instructions given and explained.pt verb understanding of instructions.discharged via w/c to exit.spouse to drive pt home.
== END 2020-02-03 14:01 | disposition home or self-care (01) ==
LOC: ER 05:20 → CSU 05:49
PROVIDERS: Emergency Medicine; Admitting Provider Internal Medicine; PCP Nurse Practitioner Family; Visit Provider Student in an Organized Health Care Education/Training Program
DX: F44.5 Conversion disorder with seizures or convulsions (principal); G45.9 Transient cerebral ischemic attack, unspecified; M79.7 Fibromyalgia; M47.816 Spondylosis without myelopathy or radiculopathy, lumbar region; M51.36 Other intervertebral disc degeneration, lumbar region; F43.10 Post-traumatic stress disorder, unspecified; K29.70 Gastritis, unspecified, without bleeding; M46.1 Sacroiliitis, not elsewhere classified; G43.409 Hemiplegic migraine, not intractable, without status migrainosus; Z87.891 Personal history of nicotine dependence
CPT/HCPCS: 12345; 36415; 36416; 70450; 70496; 70498; 71045; 80048; 80053; 82962; 84146; 85025; 93005; 96372; 97116; 97161; 99213; 99283; 99285; G0378; J1650; J1815; Q9967

== ENCOUNTER → 2020-02-22 14:52 | Outpatient (BNVA) | payer MEDICAID, SELFPAY | PROVIDERS: PCP Nurse Practitioner Family; Visit Provider Specialist | DX: F43.10 Post-traumatic stress disorder, unspecified (principal); G40.909 Epilepsy, unspecified, not intractable, without status epilepticus; G43.711 Chronic migraine without aura, intractable, with status migrainosus | CPT/HCPCS: 99214 ==

== ENCOUNTER 2020-03-06 06:00 | Outpatient (RCR) | payer MEDICAID, SELFPAY | END 2020-03-18 23:59 | disposition home or self-care (01) | LOC: MPT 06:00 | PROVIDERS: PCP Nurse Practitioner Family; Referring Provider Internal Medicine Rheumatology; Visit Provider Internal Medicine Rheumatology | DX: G89.29 Other chronic pain (principal); M54.9 Dorsalgia, unspecified | CPT/HCPCS: 97110; 97140; 97161; G0283 ==

== ENCOUNTER 2020-05-19 08:25 | Emergency (ER) | payer MEDICAID, SELFPAY ==
[2020-05-19 08:31] VITALS: BP 161/88; PULSE 103; RESP 15; TEMP 36.8; O2SAT 97; BMI 41.9
[2020-05-19] MEDS: ketorolac 60 mg/2 mL INJ IM (09:05)
[2020-05-19] MEDS: orphenadrine 30 mg/mL Inj 2 mL 60 MG IM (09:05)
[2020-05-19 09:25] VITALS: BP 153/89; PULSE 80; RESP 18; O2SAT 96
--- NOTE | 2020-05-19 09:36 | W.ED.BACK ---
HPI - Back Pain/Injury General: Chief Complaint: Back Pain/Injury Stated Complaint: acute on chronic back pain Time Seen by Provider: 05/19/20 08:26 Source: patient Mode of arrival: ambulatory Limitations: no limitations History of Present Illness: HPI Narrative: 39-year-old female patient presents to the emergency department complaining of low back pain. Patient states she has history of low back pain and goes to physical therapy for this with her last visit on Friday. Patient states she used some new back massager that she thinks aggravated her back. Patient denies any injury or trauma. Patient denies any fever. Patient denies any urinary symptoms. Patient denies history of IV drug abuse. Patient denies history of cancer. Patient denies any numbness or tingling. Patient denies any loss of bowel or bladder. Location: lumbar spine Radiation: none Exacerbating factors: movement and supine positioning Associated symptoms: Reports no associated symptoms; Deny abdominal pain, chills, dysuria, fever(s), nausea or vomiting Work related injury: No Review of Systems General: Reports: 10 or more systems reviewed and unremarkable except in HPI and below Const: Denies: fever(s), chills or body aches ENMT: Denies: uvular edema Card: Denies: chest pain, palpitations or lightheadedness Resp: Denies: dyspnea, productive cough, non-productive cough or wheezing GI: Denies: abdominal pain, nausea, vomiting, diarrhea or constipation : Denies: flank pain, difficulty voiding, dysuria or urinary frequency Musc: Reports: back pain; Denies: neck pain or extremity pain Skin/Breast: Denies: rash or pruritus Neuro: Denies: headache(s), numbness in extremities or weakness in extremities Psych: Denies: suicidal ideation or homicidal ideation [facility] ED PFSH: Medical History (Updated 05/19/20 @ 09:54 by Jessica Garcia) Anemia Depression Fibromyalgia Gastritis Inflammatory arthritis Intervertebral disc disorder with radiculopathy of lumbar region Loss of consciousness PTSD (post-traumatic stress disorder) Sacroiliitis Spondylarthritis Undifferentiated connective tissue disease Surgical History H/O esophagogastroduodenoscopy 08/02/2019: Gastric erosions History of cholecystectomy History of dilation and curettage History of tonsillectomy History of tubal ligation Family History Mother Arthritis Heart disease Stroke Father Cancer Diabetes Heart disease Kidney disease Social History (Updated 05/19/20 @ 08:36 by Dov Ng RN) Smoking and tobacco status: former smoker Alcohol intake: never Substance/Drug Use: never Household members: children Marital status: Current occupational status: unemployed History of recent travel: No Female Reproductive History: Date of last menstrual period: 01/14/20 Physical Exam Const: COMMON NORMALS: no acute distress, patient oriented x3, healthy appearing, alert and well nourished GENERAL APPEARANCE: cooperative, comfortable, well kempt and well developed; not ill appearing ORIENTATION/CONSCIOUSNESS: Yes awake, Yes oriented to person, Yes oriented to place and Yes oriented to time HENMT: COMMON NORMALS: normocephalic, atraumatic and moist oral mucous membranes HEAD & SCALP: normal to inspection, normocephalic and atraumatic FACE & SINUS: normal facial exam, sinuses nontender and face symmetric NOSE: Normal nares present, No nasal discharge present and Abnormal external nose present EXTERNAL EAR: Yes mastoids normal MOUTH: Normal oral and palatal mucosa present, lip normal, tongue normal and Normal salivary glands and ducts present THROAT: posterior oropharynx normal, tonsils normal and uvula midline; no uvular edema Eye: COMMON NORMALS: Equal, round and reactive pupils present, EOMs intact bilaterally, conjunctivae normal, no scleral icterus and no papilledema GENERAL EYE: appearance normal, both eyes and all related structures EYELID: eyelids normal CONJUNCTIVA: Yes conjunctivae normal SCLERA: sclerae normal CORNEA: Yes corneas normal PUPIL: Yes Equal, round and reactive pupils present DIRECT OPHTHALMOSCOPY: Yes no papilledema Neck/C-Spine: COMMON NORMALS: full ROM, no lymphadenopathy, supple, no meningeal signs, no JVD and Thyroid normal GENERAL: Yes normal visual inspection and Yes trachea midline THYROID: Thyroid normal CERVICAL SPINE: Yes cervical ROM normal Lymph: LYMPHATIC: no lymphadenopathy noted and no lymphedema noted Chest: COMMONS NORMALS: normal inspection of the chest and normal palpation of entire chest wall Resp: COMMON NORMALS: normal respiratory effort, No retractions, No use of accessory muscles and clear to auscultation bilaterally EFFORT & INSPECTION: Yes able to speak in complete sentences and Yes symmetric chest movement AUSCULTATION: clear to auscultation bilaterally Cardio: COMMON NORMALS: no JVD, regular rate and regular rhythm RATE: regular rate RHYTHM: regular rhythm GI: COMMON NORMALS: Normal to inspection, nondistended, normoactive bowel sounds present, Soft to palpation, non-tender, No hepatosplenomegaly present, no masses and no bruits INSPECTION: Yes normal to inspection AUSCULTATION: Yes normoactive bowel sounds PALPATION: Yes Soft to palpation and Yes No hepatosplenomegaly present PERCUSSION: normal to percussion RECTAL EXAM: deferred : COMMON NORMALS: Yes no CVA tenderness BLADDER/KIDNEY EXAM: Yes no CVA tenderness Back/Pelvis: COMMON NORMALS: no CVA tenderness, thoracic and lumbar spine normal to inspection, thoraco-lumbar ROM normal and straight leg raise negative bilaterally THORACIC SPINE/UPPER BACK: Yes normal to inspection LUMBAR SPINE/LOWER BACK: Yes normal to inspection, Yes ROM limited, Yes paraspinal muscle tenderness and Yes paraspinal muscle spasm Extremity: COMMON NORMALS: normal to inspection, full ROM and capillary refill normal GENERAL: Yes normal exam except as noted Neuro: COMMON NORMALS: patient oriented x3, CN's II-XII intact bilaterally, moves all extremities, no focal motor deficits, no sensory deficits noted, deep tendon reflexes 2+ bilaterally and gait normal SENSORIUM/ORIENTATION: Yes alert, Yes oriented to person, Yes oriented to place and Yes oriented to time MENINGEAL SIGNS: Yes no meningeal signs CRANIAL NERVES: Yes CN normal except as noted SPEECH: speech normal GAIT: Yes Normal gait present SENSORY EXAM: Yes extremities MOTOR EXAM: 5/5 motor strength present throughout Psych: COMMON NORMALS: mental status grossly normal, Normal thought process present, cooperative, normal affect, speech normal, activity/motor behavior normal, denies hallucinations, denies homicidal ideation and denies suicidal ideation APPEARANCE: Yes grossly normal and Yes well kempt ATTITUDE: Yes calm ACTIVITY/MOTOR BEHAVIOR: Yes appropriate eye contact SPEECH: Yes normal speech THOUGHT PROCESS: Normal thought process present THOUGHT CONTENT: Yes Normal thought content present ATTENTION/CONCENTRATION: Yes attention grossly intact MEMORY/COGNITION: Yes memory grossly intact INSIGHT: Good insight present (Psych) JUDGEMENT: Good judgement present (Psych) Skin: COMMON NORMALS: no rashes or lesions noted, no wounds, turgor normal, no jaundice, no petechiae and no mottling GENERAL SKIN EXAM: no rashes or lesions noted and turgor normal Course Vital Signs: Vital signs: Vital Signs Temperature 98.2 F 05/19/20 08:31 Pulse Rate 80 05/19/20 09:25 Respiratory Rate 18 05/19/20 09:25 Blood Pressure 153/89 05/19/20 09:25 Pulse Oximetry 96 05/19/20 09:25 MDM - Back Pain/Injury MDM Narrative: Medical decision making narrative: Patient is well-appearing nontoxic and in no acute distress. Patient does not have any evidence of infection in her urine. Patient did have some red blood cells but patient is currently on her menses. Patient denies any numbness or tingling in perianal region. Patient denies any loss of bowel or bladder. Patient is afebrile. Patient does not have any evidence of meningeal irritation. Patient was given Norflex and Toradol while here in the emergency department and did have good clinical response to this. I will send patient home with a prescription for Flexeril. Precautions have been advised regarding prescription. Patient no longer is taking tizanidine. I also discussed return precautions with patient as well as home care. Patient is medically cleared and appropriate for discharge at this time Lab Data: Labs: Lab Results 05/19/20 05/19/20 Range/Units 09:07 09:07 HCG, Qual Negative (Negative) Urine Color Yellow (Yellow) Urine Appearance Clear (CLEAR) Urine pH 5.0 (5-7) Ur Specific Gravit y 1.020 (1.005-1.030) Urine Protein Neg (Negative) Urine Glucose (UA) Norm (Normal) Urine Ketones Negative (Negative) Urine Blood 3+ H (Negative) Urine Nitrate Negative (Negative) Urine Bilirubin Neg (Negative) Urine Urobilinogen Norm (Negative) mg/dL Ur Leukocyte Bijla ase Trace H (Negative) Amorphous Sediment Not Reportable Discharge Plan Discharge Patient Disposition: Home Clinical Impression: Lumbar radiculopathy Condition: Stable Prescriptions: New cyclobenzaprine 10 mg tablet 10 mg PO TID PRN (Reason: muscle spasm) Qty: 14 RF: 0 No Action buspirone 10 mg tablet 40 mg PO BID RF: 0 gabapentin 600 mg tablet 600 mg PO TID Qty: 90 RF: 2 venlafaxine [Effexor XR] 150 mg capsule,extended release 24hr 150 mg PO DAILY Qty: 30 RF: 2 Aimovig Autoinjector 140 mg/mL auto-injector 140 mg SUBCUT .MONTHLY Qty: 1 RF: 4 zonisamide [Zonegran] 100 mg capsule 400 mg PO DAILY Qty: 120 RF: 5 ferrous gluconate [Ferate] 240 mg (27 mg iron) tablet 240 mg PO DAILY RF: 0 fluticasone propionate [Allergy Relief (fluticasone)] 50 mcg/actuation spray,suspension 2 spray INTRANASAL DAILY PRN (Reason: Nasal Congestion) RF: 0 hydroxyzine HCl 25 mg tablet 25 mg PO BID PRN (Reason: Anxiety) RF: 0 ropinirole 1 mg tablet 1 mg PO DAILY RF: 0 tizanidine 4 mg capsule 8 mg PO BID RF: 0 Enbrel Mini 50 mg/mL (1 mL) cartridge 50 mg SUBCUT Q7D Qty: 4 RF: 1 metformin 500 mg tablet 1,000 mg PO BID RF: 0 simvastatin 20 mg Tablet 20 mg PO DAILY RF: 0 semaglutide 3 mg Tablet 3 mg PO DAILY RF: 0 pantoprazole [Protonix] 40 mg tablet,delayed release (DR/EC) 40 mg PO BIDWM 42 Days Qty: 42 RF: 3 Discharge Orders: Discharge ED (Routine); Ordered 05/19/20 Ordered By: Jessica Garcia Referrals: Joan Ferreira, DIRECTOR OF APPLICATION DEVELOPMENT [Primary Care Provider] - Discharge Diet: Advance as tolerated Discharge Activity: Increase activity as tolerated Patient Instructions: Chronic Back Pain (ED) Activity Restrictions/Additional Instructions: Please return to the emergency department with any worsening of conditions loss of bowel or bladder or any new numbness or tingling or acute onset of fever please take medications as directed Coding Level of Care Code ED Toe Puller for Andres Fwd Exam Comprehensive
[2020-05-19 09:47] LABS: Add Urine Microscopic? YES; Bilirubin Urine Neg (Negative); Blood Urine 3+ (Negative); Glucose Urine UA Norm (Normal); Ketones Urine Negative (Negative); Leukocyte Esterase Urine Trace (Negative); Nitrate Urine Negative (Negative); Protein Urine Neg (Negative); Urine Appearance Clear (CLEAR); Urine Color Yellow (Yellow); Urobilinogen Urine Norm (Negative)
[2020-05-19 09:50] LABS: HCG Qualitative Urine. Negative (Negative)
[2020-05-19 10:24] VITALS: BP 169/62; PULSE 73; RESP 18; O2SAT 98
[2020-05-19 10:36] LABS: Add Urine Culture? No; Bacteria Urine 1+ /hpf; Mucus Urine TRACE /hpf; RBC Urine 0-4 /hpf (0-2)
== END 2020-05-19 10:28 | disposition home or self-care (01) ==
PROVIDERS: Emergency Provider Registered Nurse; PCP Nurse Practitioner Family
DX: M54.16 Radiculopathy, lumbar region (principal); Z87.891 Personal history of nicotine dependence
CPT/HCPCS: 12345; 81001; 81025; 96372; 99281; 99283; J1885; J2360

== ENCOUNTER → 2020-05-22 14:21 | Outpatient (BNVA) | payer MEDICAID, SELFPAY | PROVIDERS: PCP Nurse Practitioner Family; Visit Provider Internal Medicine Rheumatology | DX: R76.8 Other specified abnormal immunological findings in serum (principal); M15.9 Polyosteoarthritis, unspecified; Z79.899 Other long term (current) drug therapy; M46.1 Sacroiliitis, not elsewhere classified; R79.82 Elevated C-reactive protein (CRP); K76.0 Fatty (change of) liver, not elsewhere classified; Z87.891 Personal history of nicotine dependence | CPT/HCPCS: 36415; 80076; 82565; 85025; 85651; 86140; 99214 ==

== ENCOUNTER → 2020-06-05 17:03 | Outpatient (BNVA) | payer MEDICAID, SELFPAY | PROVIDERS: PCP Nurse Practitioner Family; Visit Provider Internal Medicine | DX: Z01.812 Encounter for preprocedural laboratory examination (principal); K92.1 Melena | CPT/HCPCS: 87635 ==

== ENCOUNTER → 2020-06-06 13:09 | Outpatient (BNVA) | payer MEDICAID, SELFPAY | PROVIDERS: PCP Nurse Practitioner Family; Visit Provider Specialist | DX: F44.5 Conversion disorder with seizures or convulsions (principal); G43.711 Chronic migraine without aura, intractable, with status migrainosus; G47.33 Obstructive sleep apnea (adult) (pediatric); F43.10 Post-traumatic stress disorder, unspecified; Z87.891 Personal history of nicotine dependence | CPT/HCPCS: 99214 ==

== ENCOUNTER 2020-06-11 05:33 | Emergency (ER) | payer MEDICAID, SELFPAY ==
[2020-06-11] VITALS (7 sets, daily range): BP systolic 86–111; BP diastolic 36–83; PULSE 74–90; RESP 16–30; TEMP 36.8; O2SAT 99–100; BMI 43.5
--- NOTE | 2020-06-11 06:17 | ECG_ITS ---
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
[2020-06-11] MEDS: LORazepam 2 mg/mL INJ 1 mL 1 MG IVP ×2 (06:24→07:27)
[2020-06-11] MEDS: diphenhydrAMINE 50 mg/mL SDV 1mL IVP (06:28)
[2020-06-11] MEDS: sodium chloride 0.9% 1,000 ML 999 ML IV ×2 (06:28→07:45)
--- NOTE | 2020-06-11 06:30 | ED_ITS ---
HPI - Extremity Problem General: Chief complaint: Extremity Problem,Nontraumatic Stated complaint: has rls/ legs are jumping by themselves Time Seen by Provider: 06/11/20 06:09 Source: patient and family Limitations: other (Patient with bilateral restless legs. Feels faint and dizzy.) History of Present Illness: Onset (ago): hour(s) (3) Pain Consistency: constant Location: left, right and lower extremity Quality: burning Associated symptoms: Deny chest pain, fever(s) or rash Review of Systems General: Reports: 10 or more systems reviewed and unremarkable except in HPI and below Const: Denies: fever(s) or chills Eyes: Denies: change in vision ENMT: Denies: throat pain Card: Denies: chest pain Resp: Denies: dyspnea GI: Reports: nausea; Denies: abdominal pain or vomiting : Denies: flank pain Musc: Reports: other (Restless legs. Cannot hold legs still.) Skin/Breast: Denies: rash Neuro: Reports: dizziness and confusion Psych: Reports: anxiety PFSH ED PFSH: Medical History Anemia Depression Fibromyalgia Gastritis Inflammatory arthritis Intervertebral disc disorder with radiculopathy of lumbar region Loss of consciousness PTSD (post-traumatic stress disorder) Sacroiliitis Spondylarthritis Undifferentiated connective tissue disease Surgical History H/O esophagogastroduodenoscopy 08/02/2019: Gastric erosions History of cholecystectomy History of dilation and curettage History of tonsillectomy History of tubal ligation Family History Mother Arthritis Heart disease Stroke Father Cancer Diabetes Heart disease Kidney disease Social History Smoking and tobacco status: former smoker Alcohol intake: never Household members: children Marital status: Current occupational status: unemployed History of recent travel: No Female Reproductive History: Date of last menstrual period: 01/14/20 Physical Exam Const: COMMON NORMALS: no acute distress, average body habitus, patient oriented x3, no limitations, healthy appearing, alert and well nourished GENERAL APPEARANCE: cooperative HENMT: COMMON NORMALS: normocephalic, atraumatic, hearing grossly normal bilaterally, external ears normal, EAC's normal, TM's normal bilaterally, Normal external nose present, Normal nasal mucous membranes and turbinates present, moist oral mucous membranes, oropharynx normal, dentition normal and gingiva normal HEAD & SCALP: normocephalic and atraumatic NOSE: Normal external nose present and Normal nasal mucous membranes and turbinates present EXTERNAL EAR: Yes external ears normal EXTERNAL AUDITORY CANAL: EAC's normal TYMPANIC MEMBRANE: TM's normal bilaterally Neck/C-Spine: COMMON NORMALS: full ROM, no lymphadenopathy, supple, no meningeal signs, Thyroid normal and No carotid bruits THYROID: Thyroid normal Chest: COMMONS NORMALS: normal inspection of the chest, normal palpation of entire chest wall, normal inspection of the breasts and normal palpation of the breasts Breast/axilla inspection: Yes normal inspection of the breasts BREAST/AXILLA PALPATION: Yes normal palpation of the breasts Resp: COMMON NORMALS: normal respiratory effort, No retractions, No use of accessory muscles, clear to auscultation bilaterally and percussion normal A USCULTATION: clear to auscultation bilaterally PERCUSSION: percussion normal GI: COMMON NORMALS: Normal to inspection, nondistended, normoactive bowel sounds present, Soft to palpation, non-tender, No hepatosplenomegaly present, no masses and no bruits PALPATION: Yes Soft to palpation and Yes No hepatosplenomegaly present : COMMON NORMALS: Yes normal external appearance, Yes normal appearance of the vagina, Yes normal appearance of the cervix, Yes normal bimanual exam, Yes No adnexal tenderness and Yes no masses BIMANUAL EXAM - VAGINA & UTERUS: Yes normal bimanual exam Extremity: NARRATIVE EXTREMITY EXAM: Patient with nonstop movement of bilateral lower extremities. Neuro: COMMON NORMALS: patient oriented x3 SENSORIUM/ORIENTATION: Yes alert MENINGEAL SIGNS: Yes no meningeal signs MOTOR EXAM: Other motor observations present (Patient with nonstop movement of bilateral lower extremities.) Course Vital Signs: Vital signs: Vital Signs Temperature 98.2 F 06/11/20 05:42 Pulse Rate 90 06/11/20 07:25 Respiratory Rate 17 06/11/20 06:30 Blood Pressure 86/47 06/11/20 07:25 Pulse Oximetry 99 01/24/21 07:25 MDM - Extremity (Nontraumatic) MDM Narrative: Medical decision making narrative: Patient is feeling much better after medications. Restless leg syndrome has improved significantly. No significant abnormality noted on labs. I see no indication for imaging. No neuro deficits noted. Discharge patient home to keep taking her Requip as dir ected. Lab Data: Labs: Lab Results 06/11/20 06/11/20 06/11/20 Range/Units 06:15 06:15 06:49 WBC 9.3 (4.0-10.0) 10^3/ uL RBC 4.21 (4.1-5.3) 10^6/u L Hgb 10.1 L (11.5-15.3) g/dL Hct 34.7 L (37.0-47.0) % MCV 82.4 (81-99) fL MCH 24.0 L (28.0-34.0) pg MCHC 29.1 L (30.0-36.0) g/dL RDW 16.8 H (12.1-15.1) % Plt Count 278 (130-400) 10^3/c mm MPV 10.6 H (7.4-10.4) fL Neut % (Auto) 59.3 % Lymph % (Auto) 29.5 % Glascock % (Auto) 8.2 % Eos % (Auto) 2.1 % Baso % (Auto) 0.3 % Neut # (Auto) 5.52 (1.8-7.7) 10^3/u L Lymph # (Auto) 2.8 (0.8-4.8) 10^3/u L Glascock # (Auto) 0.8 (0.2-0.9) 10^3/u L Eos # (Auto) 0.2 (0.0-0.8) 10^3/u L Baso # (Auto) 0.0 (0.0-0.1) 10^3/u L Nucleated RBC % (a uto) 0 % Nucleated RBCs # 0.0 /100WBC Sodium 135 L (136-145) mmol/L Potassium 4.7 (3.5-5.1) mmol/L Chloride 103 (98-107) mmol/L Carbon Dioxide 22 (22-29) mmol/L Anion Gap 14.7 (5-19) BUN 15 (6-20) mg/dL Creatinine 0.7 (0.5-0.9) mg/dL GFR Calculation 92.2 (90-130) mL/min Glucose 175 H (65-115) mg/dL Calculated Osmolal ity 285 (285-295) mOsm/k g Calcium 9.1 (8.5-10.5) mg/dL Magnesium 2.0 (1.7-2.3) mg/dL Total Bilirubin 0.2 (0.15-1.2) mg/dL AST 26 (0-32) U/L ALT 27 (0-33) U/L Alkaline Phosphata se 90 (35-105) IU/L Total Protein 8.4 (6.6-8.7) g/dL Albumin 4.0 (3.5-5.2) g/dL Globulin 4.4 (1.3-4.6) g/dL HCG, Qual Negative (Negative) Urine Color (Yellow) Urine Appearance (CLEAR) Urine pH (5-7) Ur Specific Gravit y (1.005-1.030) Urine Protein (Negative) Urine Glucose (UA) (Normal) Urine Ketones (Negative) Urine Blood (Negative) Urine Nitrate (Negative) Urine Bilirubin (Negative) Urine Urobilinogen (Negative) mg/dL Ur Leukocyte Bijal ase (Negative) Urine Opiates Scre en (Negative) ng/mL Ur Barbiturates Sc reen (Negative) ng/mL Ur Phencyclidine S crn (Negative) ng/mL Ur Amphetamines Sc reen (Negative) ng/mL U Benzodiazepines Scrn (Negative) ng/mL Urine Cocaine Scre en (Negative) ng/mL U Marijuana (THC) Screen (Negative) ng/mL 06/11/20 06/11/20 Range/Units 06:49 06:49 WBC (4.0-10.0) 10^3/ uL RBC (4.1-5.3) 10^6/u L Hgb (11.5-15.3) g/dL Hct (37.0-47.0) % MCV (81-99) fL MCH (28.0-34.0) pg MCHC (30.0-36.0) g/dL RDW (12.1-15.1) % Plt Count (130-400) 10^3/c mm MPV (7.4-10.4) fL Neut % (Auto) % Lymph % (Auto) % Glascock % (Auto) % Eos % (Auto) % Baso % (Auto) % Neut # (Auto) (1.8-7.7) 10^3/u L Lymph # (Auto) (0.8-4.8) 10^3/u L Glascock # (Auto) (0.2-0.9) 10^3/u L Eos # (Auto) (0.0-0.8) 10^3/u L Baso # (Auto) (0.0-0.1) 10^3/u L Nucleated RBC % (a uto) % Nucleated RBCs # /100WBC Sodium (136-145) mmol/L Potassium (3.5-5.1) mmol/L Chloride (98-107) mmol/L Carbon Dioxide (22-29) mmol/L Anion Gap (5-19) BUN (6-20) mg/dL Creatinine (0.5-0.9) mg/dL GFR Calculation (90-130) mL/min Glucose (65-115) mg/dL Calculated Osmolal ity (285-295) mOsm/k g Calcium (8.5-10.5) mg/dL Magnesium (1.7-2.3) mg/dL Total Bilirubin (0.15-1.2) mg/dL AST (0-32) U/L ALT (0-33) U/L Alkaline Phosphata se (35-105) IU/L Total Protein (6.6-8.7) g/dL Albumin (3.5-5.2) g/dL Globulin (1.3-4.6) g/dL HCG, Qual (Negative) Urine Color Yellow (Yellow) Urine Appearance Clear (CLEAR) Urine pH 5 (5-7) Ur Specific Gravit y 1.025 (1.005-1.030) Urine Protein Neg (Negative) Urine Glucose (UA) Norm (Normal) Urine Ketones Negative (Negative) Urine Blood Neg (Negative) Urine Nitrate Negative (Negative) Urine Bilirubin Neg (Negative) Urine Urobilinogen Norm (Negative) mg/dL Ur Leukocyte Bijal ase Negative (Negative) Urine Opiates Scre en Negative (Negative) ng/mL Ur Barbiturates Sc reen Negative (Negative) ng/mL Ur Phencyclidine S crn Negative (Negative) ng/mL Ur Amphetamines Sc reen Negative (Negative) ng/mL U Benzodiazepines Scrn Negative (Negative) ng/mL Urine Cocaine Scre en Negative (Negative) ng/mL U Marijuana (THC) Screen Negative (Negative) ng/mL Discharge Plan Discharge Condition: Stable Prescriptions: No Action buspirone 10 mg tablet 40 mg PO BID RF: 0 gabapentin 600 mg tablet 600 mg PO TID Qty: 90 RF: 2 Aimovig Autoinjector 140 mg/mL auto-injector 140 mg SUBCUT .MONTHLY Qty: 1 RF: 4 Humira Pen 40 mg/0.8 mL pen injector kit 40 mg SUBCUT Q14D Qty: 2 RF: 4 zonisamide [Zonegran] 100 mg capsule 400 mg PO DAILY Qty: 120 RF: 5 ferrous gluconate [Ferate] 240 mg (27 mg iron) tablet 240 mg PO DAILY RF: 0 fluticasone propionate [Allergy Relief (fluticasone)] 50 mcg/actuation spray,suspension 2 spray INTRANASAL DAILY PRN (Reason: Nasal Congestion) RF: 0 hydroxyzine HCl 25 mg tablet 25 mg PO BID PRN (Reason: Anxiety) RF: 0 ropinirole 1 mg tablet 1 mg PO DAILY RF: 0 tizanidine 4 mg capsule 8 mg PO BID RF: 0 metformin 500 mg tablet 1,000 mg PO BID RF: 0 simvastatin 20 mg Tablet 20 mg PO DAILY RF: 0 cyclobenzaprine 10 mg tablet 10 mg PO TID PRN (Reason: muscle spasm) Qty: 14 RF: 0 Victoza 3-Jone 0.6 mg/0.1 mL (18 mg/3 mL) pen injector 0.6 mg SUBCUT DAILY RF: 0 Discharge Orders: Discharge ED (Routine); Ordered 06/11/20 Ordered By: Jovani Macias Referrals: Joan Ferreira WEAVER TIRE CORD [Primary Care Provider] - Discharge Activity: Resume usual activity Coding Level of Care Code ED 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
[2020-06-11 06:33] LABS: Basophils % 0.3 %; Eosinophils # 0.2 10^3/uL (0.0-0.8); Eosinophils % 2.1 %; Hematocrit 34.7 % (37.0-47.0); Hemoglobin 10.1 g/dL (11.5-15.3); Lymphocytes # 2.8 10^3/uL (0.8-4.8); Lymphocytes % 29.5 %; Mean Corpuscular HGB Conc 29.1 g/dL (30.0-36.0); Mean Corpuscular Volume 82.4 fL (81-99); Mean Platelet Volume 10.6 fL (7.4-10.4); Monocytes # 0.8 10^3/uL (0.2-0.9); Monocytes % 8.2 %; Neutrophils # 5.52 10^3/uL (1.8-7.7); Neutrophils % 59.3 %; Nucleated Red Blood Cells % 0 %; Platelet Count 278 10^3/cmm (130-400); Red Blood Count 4.21 10^6/uL (4.1-5.3); Red Cell Distribution Width 16.8 % (12.1-15.1); White Blood Count 9.3 10^3/uL (4.0-10.0)
[2020-06-11 06:48] LABS: Alanine Aminotransferase 27 U/L (0-33); Alkaline Phosphatase 90 IU/L (35-105); Anion Gap 14.7 (5-19); Aspartate Amino Transferase 26 U/L (0-32); Blood Urea Nitrogen 15 mg/dL (6-20); Calcium 9.1 mg/dL (8.5-10.5); Carbon Dioxide 22 mmol/L (22-29); Chloride 103 mmol/L (98-107); Creatinine Clr Calc Pharmacy 141.1984; Glomerular Filtration Rate 92.2 mL/min (90-130); Glucose 175 mg/dL (65-115); Osmolality Calculated 285 mOsm/kg (285-295); Potassium 4.7 mmol/L (3.5-5.1); Sodium 135 mmol/L (136-145); Total Bilirubin 0.2 mg/dL (0.15-1.2)
[2020-06-11 06:58] LABS: Add Urine Microscopic? NO
[2020-06-11 07:04] LABS: Bilirubin Urine Neg (Negative); Blood Urine Neg (Negative); Glucose Urine UA Norm (Normal); HCG Qualitative Urine. Negative (Negative); Ketones Urine Negative (Negative); Leukocyte Esterase Urine Negative (Negative); Nitrate Urine Negative (Negative); Protein Urine Neg (Negative); Specific Gravity, Urine 1.025 (1.005-1.030); Urine Appearance Clear (CLEAR); Urine Color Yellow (Yellow); Urobilinogen Urine Norm (Negative); pH Urine 5 (5-7)
[2020-06-11 07:11] LABS: Amphetamines Screen Urine Negative (Negative); Barbiturates Screen Urine Negative (Negative); Benzodiazepines Screen Urine Negative (Negative); Cocaine Screen Urine Negative (Negative); Opiate Screen Urine Negative (Negative); PCP Screen Urine Negative (Negative); THC Screen Urine Negative (Negative)
[2020-06-11] MEDS: ropinirole 2 mg Tablet PO (07:28)
[2020-06-11] MEDS: haloperidol inj 5 mg/mL INJ 1 mL IM (08:20)
[2020-06-12 19:55] LABS: Globulin 2.7 g/dL (1.3-4.6); Total Protein 6.7 g/dL (6.6-8.7)
== END 2020-06-11 09:08 | disposition home or self-care (01) ==
PROVIDERS: Emergency Provider Emergency Medicine; PCP Nurse Practitioner Family
DX: G25.81 Restless legs syndrome (principal); Z79.84 Long term (current) use of oral hypoglycemic drugs; Z87.891 Personal history of nicotine dependence
CPT/HCPCS: 12345; 80053; 80306; 81003; 81025; 83735; 85025; 93005; 96361; 96372; 96374; 96375; 96376; 99283; 99284; J1200; J1630; J2060; J7030

== ENCOUNTER 2020-06-12 08:39 | Day surgery (SDC) | payer MEDICAID, SELFPAY ==
[2020-06-12 09:01] VITALS: BP 120/99; PULSE 106; RESP 18; TEMP 36.3; O2SAT 95
[2020-06-12] MEDS: sodium chloride 0.9% 1,000 ML 30 ML IV (09:14)
[2020-06-12 09:15] LABS: Glucose Point of Care 141 mg/dL (70-110)
--- NOTE | 2020-06-12 09:37 | W.PM.OPSFHP ---
Same Day Surgery H&P Indication for Procedure/HPI DATE OF PROCEDURE: June 12, 2020 CHIEF COMPLAINT/INDICATIONFOR SURGICAL PROCEDURE: Epigastric pain and hematochezia PREOP DIAGNOSIS: d PLANNED PROCEDRUE: Operation Date: 06/12/20 09:15 Proposed Procedures p EGD [id number] K92.1(Not Applicable) - Arthur York MD s Colonoscopy(Not Applicable) - Arthur York MD Medications/Allergies* Home Medications Medication Instructions Recorded Confirmed Type ferrous gluconate 240 mg (27 mg 240 mg PO DAILY 06/03/19 06/08/20 History iron) tablet fluticasone propionate 50 2 spray INTRANASAL DAILY PRN 06/03/19 06/08/20 History mcg/actuation nasal spray,suspension hydroxyzine HCl 25 mg tablet 25 mg PO BID PRN 06/03/19 06/08/20 History ropinirole 1 mg tablet 1 mg PO DAILY 06/03/19 06/08/20 History buspirone 10 mg tablet 40 mg PO BID tab 07/27/19 06/08/20 History tizanidine 4 mg capsule 8 mg PO BID cap 11/02/19 06/08/20 History metformin 1,000 mg PO BID 02/02/20 06/08/20 History simvastatin 20 mg PO DAILY 02/02/20 06/08/20 History liraglutide [Victoza 3-Jone] 0.6 mg SUBCUT DAILY 06/09/20 06/09/20 History Allergies/Adverse Reactions Allergy/AdvReac Type Severity Reaction Status Date / Time No Known Allergies Allergy Verified 06/12/20 09:06 Current Medications: Generic Name Dose Route Start Last Admin Trade Name Freq PRN Reason Stop Dose Admin Sodium Chloride 1,000 mls @ 30 mls/hr 06/12/20 08:45 06/12/20 09:14 Sodium Chloride 0.9% IV 06/13/20 08:44 30 mls/hr .Q24H MILLICENT Administration Pertinent History/Comorbid Conditions* Medical History (Updated 06/06/20 @ 15:09 by Macarena Walls MD) Anemia Depression Fibromyalgia Gastritis Inflammatory arthritis Intervertebral disc disorder with radiculopathy of lumbar region Loss of consciousness PTSD (post-traumatic stress disorder) Sacroiliitis Spondylarthritis Undifferentiated connective tissue disease Surgical History (Updated 08/02/19 @ 09:12 by Antoine Bauer MD) H/O esophagogastroduodenoscopy 08/02/2019: Gastric erosions History of cholecystectomy History of dilation and curettage History of tonsillectomy History of tubal ligation Family History (Updated 09/29/19 @ 13:05 by Jovita Tierney LPN) Diabetes Father Arthritis Mother Heart disease Mother Father Kidney disease Father Cancer Father Stroke Mother Social History Smoking and tobacco status: former smoker Alcohol intake: never Household members: children Marital status: Current occupational status: unemployed History of recent travel: No Pertinent Exam Findings alert, oriented x 3, clear to auscultation bilaterally, regular rate & rhythm, operative site marked and procedure specific exam findings Recommendations Surgery/Procedure today Coding Level of Care Code Acute Director Distribution for Andres Jarrell
--- NOTE | 2020-06-12 09:58 | P.ANESASSM_ITS ---
Pre-Anesthetic Assessment Pre-Anesthetic Assessment: Height/Weight: Height 1.68 m Weight 122.47 kg Temp Pulse Resp BP Pulse Ox 97.3 F L 106 H 18 120/99 95 06/12/20 09:01 06/12/20 09:01 06/12/20 09:01 06/12/20 09:01 06/12/20 09:01 Preop Diagnosis: d Proposed Procedure: Operation Date: 06/12/20 09:15 Proposed Procedures p EGD [id number] K92.1(Not Applicable) - Arthur Yokr MD s Colonoscopy(Not Applicable) - Arthur York MD Was Beta Dayami taken within 24 hours: N/A Last intake: Intake Last Liquid Date 06/11/20 Last Liquid Time 18:30 Last Solid Date 06/10/20 Social: Social History: No alcohol and No tobacco Exam: Pre-Anes Outpt Exam: alert, oriented x 3, clear to auscultation bilatera lly and regular rate & rhythm Airway: Submandibular: WNL Cervical ROM: WNL MP: 2 Dentition: Full Pulmonary: Pulmonary: Sleep apnea Hepatic: Hepatic: None reported GI: GI: GERD Metabolic: Metabolic: Morbid obesity Musc/skel: Musc/skel: Lower Back Pain Comments: SLE Neuropsych: Neuropsych: Depression Anesthetic Plan: ASA status: 3 Anesthesia: MAC Risk of > 500 ml blood loss (7ml/kg in children): No Meds/Allergies Current Medications: Current Medications Generic Name Dose Route Start Last Admin Trade Name Freq PRN Reason Stop Dose Admin Sodium Chloride 1,000 mls @ 30 ml s/hr 06/12/20 08:45 06/12/20 09:14 Sodium Chloride 0.9% IV 06/13/20 08:44 30 mls/hr .Q24H MILLICENT Administration PFSH Anesthesia PFSH: Medical History Anemia Depression Fibromyalgia Gastritis Inflammatory arthritis Intervertebral disc disorder with radiculopathy of lumbar region Loss of consciousness PTSD (post-traumatic stress disorder) Sacroiliitis Spondylarthritis Undifferentiated connective tissue disease Surgical History H/O esophagogastroduodenoscopy 08/02/2019: Gastric erosions History of cholecystectomy History of dilation and curettage History of tonsillectomy History of tubal ligation Family History Mother Arthritis Heart disease Stroke Father Cancer Diabetes Heart disease Kidney disease Social History Smoking and tobacco status: former smoker Alcohol intake: never Household members: children Marital status: Current occupational status: unemployed History of recent travel: No Female Reproductive History: Date of last menstrual period: 01/14/20 Data Anesthesia Other Labs: Laboratory Results - last 48 hr 06/12/20 09:12 POC Glucose 141 H Cardiac Studies: No Data to Display
[2020-06-12 10:05] LABS: OR HCG Qualitative Urine Negative (Negative)
[2020-06-12 10:27] VITALS: BP 127/74; PULSE 111; RESP 20; TEMP 36.1; O2SAT 96
[2020-06-12 10:38] VITALS: BP 151/93; PULSE 101; RESP 20; O2SAT 99
--- NOTE | 2020-06-12 15:18 | ANE.PACU2 ---
Inpatient post-anesthesia follow up: Airway intact: Yes Vital signs: Temperature 97 F Pulse Rate 101 Respiratory Rate 20 Blood Pressure 151/93 Pulse Oximetry 99 Oxygen Delivery Me thod Room Air Oxygen Flow Rate Fraction of Inspir ed Oxygen Hydration adequate: Yes Nausea and vomiting: No Pain level: 1 Mental status: Baseline
== END 2020-06-12 10:56 | disposition home or self-care (01) ==
PROVIDERS: Anesthesiology; PCP Nurse Practitioner Family; Visit Provider Internal Medicine
PROC: 0DJ08ZZ Inspection of Upper Intestinal Tract, Via Natural or Artificial Opening Endoscopic (ICD-10-PCS; CPT 43235; principal; 2020-06-12 09:15)
PROC: 0DJD8ZZ Inspection of Lower Intestinal Tract, Via Natural or Artificial Opening Endoscopic (ICD-10-PCS; CPT 45378; 2020-06-12 09:15)
DX: K92.1 Melena (principal); R10.13 Epigastric pain; K57.30 Diverticulosis of large intestine without perforation or abscess without bleeding; M79.7 Fibromyalgia; M19.90 Unspecified osteoarthritis, unspecified site; Z87.891 Personal history of nicotine dependence; G47.30 Sleep apnea, unspecified; K21.9 Gastro-esophageal reflux disease without esophagitis; E66.01 Morbid (severe) obesity due to excess calories; Z68.41 Body mass index [BMI] 40.0-44.9, adult
CPT/HCPCS: 12345; 36416; 43235; 45378; 82962; 84703; J7030

== ENCOUNTER 2020-07-29 16:21 | Emergency (ER) | payer MEDICAID, SELFPAY ==
[2020-07-29 16:48] VITALS: BP 146/74; PULSE 99; RESP 15; TEMP 36.9; O2SAT 96; BMI 44.4
[2020-07-29 16:54] VITALS: O2SAT 97
--- NOTE | 2020-07-29 16:59 | W.ED.EXTPRO ---
HPI - Extremity Problem General: Chief complaint: Extremity Injury, Lower Stated complaint: right hip pain Time Seen by Provider: 07/29/20 16:58 Source: patient Mode of arrival: ambulatory Limitations: no limitations History of Present Illness: HPI Narrative: 40-year-old female comes in today for complaints of right hip pain and difficulty walking. Patient appears well. Patient appears in no acute distress. Patient does appear in moderate pain at rest. Patient has a history of diabetes mellitus, ankylosing spondylitis, depression, and asthma. Patient reports good control of her blood sugars at this time. Review of Systems General: Reports: 10 or more systems reviewed and unremarkable except in HPI and below Musc: Reports: other (right hip pain) PFSH ED PFSH: Medical History (Updated 07/29/20 @ 18:01 by RITA Stanley) Anemia Depression Fibromyalgia Gastritis Inflammatory arthritis Intervertebral disc disorder with radiculopathy of lumbar region Loss of consciousness PTSD (post-traumatic stress disorder) Sacroiliitis Spondylarthritis Undifferentiated connective tissue disease Surgical History H/O esophagogastroduodenoscopy 08/02/2019: Gastric erosions History of cholecystectomy History of dilation and curettage History of tonsillectomy History of tubal ligation Family History Mother Arthritis Heart disease Stroke Father Cancer Diabetes Heart disease Kidney disease Social History (Updated 07/29/20 @ 16:52 by Dov Ng RN) Smoking and tobacco status: former smoker Alcohol intake: never Substance/Drug Use: never Household members: children Marital status: Current occupational status: unemployed History of recent travel: No Female Reproductive History: Date of last menstrual period: 01/14/20 Physical Exam Const: COMMON NORMALS: no acute distress and patient oriented x3 GENERAL APPEARANCE: cooperative HENMT: COMMON NORMALS: normocephalic and Normal external nose present HEAD & SCALP: normal to inspection and normocephalic NOSE: Normal external nose present Eye: GENERAL EYE: appearance normal, both eyes and all related structures Neck/C-Spine: COMMON NORMALS: full ROM Lymph: LYMPHATIC: no lymphadenopathy noted Chest: COMMONS NORMALS: normal inspection of the chest Resp: COMMON NORMALS: normal respiratory effort EFFORT & INSPECTION: Yes able to speak in complete sentences Cardio: COMMON NORMALS: regular rate and regular rhythm RATE: regular rate RHYTHM: regular rhythm GI: COMMON NORMALS: non-tender Back/Pelvis: COMMON NORMALS: thoracic and lumbar spine normal to inspection Extremity: COMMON NORMALS: normal to inspection NARRATIVE EXTREMITY EXAM: Palpable muscle tightness to the right outer buttock and trochanter of the right hip. Distal pulses are intact. Skin is warm and dry. Neuro: COMMON NORMALS: patient oriented x3 and moves all extremities Psych: COMMON NORMALS: mental status grossly normal and cooperative Skin: COMMON NORMALS: no rashes or lesions noted GENERAL SKIN EXAM: no rashes or lesions noted Course Vital Signs: Vital signs: Vital Signs Temperature 98.5 F 07/29/20 16:48 Pulse Rate 91 07/29/20 17:03 Respiratory Rate 15 07/29/20 16:48 Blood Pressure 118/73 07/29/20 17:03 Pulse Oximetry 97 07/29/20 17:03 MDM - Extremity (Nontraumatic) MDM Narrative: Medical decision making narrative: Patient comes in today with complaints of right hip pain and difficulty with bearing weight on the right hip. Patient denied any falls or injuries. On exam patient has some tenderness in the right lateral hip with some tightness in the musculature. Respirations are even. Lungs are clear to auscultation. Vital signs are normal. Differential diagnosis includes tendinitis, myofascial strain, degenerative joint disease. X-ray was unremarkable. Patient was medicated with ketorolac, orphenadrine, and hydrocodone for her pain. Feel the patient probably has some tendinitis in the hip area that is causing her pain. Patient does have some mild relief of pain with medication. We will recommend patient stay on diclofenac and acetaminophen. She will be written for a short burst of hydrocodone for breakthrough pain. Discussed the importance of maintaining activity and noting that the medication would not take away all her pain but it is important for her to stay as active as she can. Also recommended that she follow-up with primary care or specialist for further treatment options such as the use of steroids. Discharge Plan Discharge Patient Disposition: Home Clinical Impression: Hip tendinitis Qualifiers: Laterality: right Qualified Code(s): M76.891 - Other specified enthesopathies of right lower limb, excluding foot Condition: Stable Prescriptions: New hydrocodone-acetaminophen 5-325 mg tablet 1 tab PO Q6H PRN (Reason: pain) Qty: 14 RF: 0 No Action buspirone 10 mg tablet 40 mg PO BID RF: 0 gabapentin 600 mg tablet 600 mg PO TID Qty: 90 RF: 2 Humira Pen 40 mg/0.8 mL pen injector kit 40 mg SUBCUT Q14D Qty: 2 RF: 4 zonisamide [Zonegran] 100 mg capsule 400 mg PO DAILY Qty: 120 RF: 5 ferrous gluconate [Ferate] 240 mg (27 mg iron) tablet 240 mg PO DAILY RF: 0 fluticasone propionate [Allergy Relief (fluticasone)] 50 mcg/actuation spray,suspension 2 spray INTRANASAL DAILY PRN (Reason: Nasal Congestion) RF: 0 hydroxyzine HCl 25 mg tablet 25 mg PO BID PRN (Reason: Anxiety) RF: 0 ropinirole 1 mg tablet 1 mg PO DAILY RF: 0 tizanidine 4 mg capsule 8 mg PO BID RF: 0 pantoprazole 40 mg tablet,delayed release (DR/EC) 40 mg PO DAILY Qty: 30 RF: 0 methylprednisolone [Medrol (Jone)] 4 mg tablets,dose pack See Rx Instructions PO PER PKG DIR PRN (Reason: joint pain flare) Qty: 21 RF: 0 diclofenac sodium 75 mg tablet,delayed release (DR/EC) 75 mg PO BID PRN (Reason: moderate to severe joint pain) Qty: 30 RF: 1 Aimovig Autoinjector 140 mg/mL auto-injector 140 mg SUBCUT .MONTHLY Qty: 1 RF: 3 metformin 500 mg tablet 1,000 mg PO BID RF: 0 simvastatin 20 mg Tablet 20 mg PO DAILY RF: 0 cyclobenzaprine 10 mg tablet 10 mg PO TID PRN (Reason: muscle spasm) Qty: 14 RF: 0 Victoza 3-Jone 0.6 mg/0.1 mL (18 mg/3 mL) pen injector 0.6 mg SUBCUT DAILY RF: 0 Discharge Orders: Discharge ED (Routine); Ordered 07/29/20 Ordered By: Lam Sheridan Referrals: Joan Ferreira MEDICAL STAFF PHYSICIAN [Primary Care Provider] - Discharge Diet: Usual diet Discharge Activity: Increase activity as tolerated Patient Instructions: Tendinitis (ED), Opioid Safety Activity Restrictions/Additional Instructions: Tendinitis is a inflammation of the tendons that insert in the area of the joint and muscle. It can be very painful. The use of ice and heat can be beneficial. The use of acetaminophen and a nonsteroidal anti-inflammatory, such as ibuprofen, naproxen, or diclofenac, can be beneficial. Try to maintain as much mobility as you can. Use a cane or walker to maintain your ambulation. Usually the inflammation will run its course in 7 to 10 days. You should follow-up with primary care for further treatment. The use of opiate medication such as hydrocodone can be helpful in the acute case he should use these medications sparingly. Return to the emergency department for new concerns. Coding Level of Care Code ED Dehydrogenation Operator for Andres Jarrell Exam Comprehensive
[2020-07-29 17:03] VITALS: BP 118/73; PULSE 91; O2SAT 97
--- NOTE | 2020-07-29 17:08 | XRR_ITS ---
PROCEDURE INFORMATION: Exam: XR Right Hip Exam date and time: 07/29/2020 5:34 PM Age: 40 years old Clinical indication: Hip pain; Right hip; Additional info: Severe pain, no injury, TECHNIQUE: Imaging protocol: XR Right hip. Views: 1 view hip with pelvis when performed. COMPARISON: CR XR hip RT 2-3V wo/w pel* [id number] 07/19/2019 5:53 PM FINDINGS: Bones/joints: No fracture or other acute osseous abnormality. No joint narrowing, dislocation, or effusion noted. Soft tissues: The soft tissues appear unremarkable. XR/XR hip RT 2-3V wo/w pel* [id number] IMPRESSION: 1. Unremarkable right hip with AP pelvis radiographic series. 2. There is no interval change from the prior examination.
[2020-07-29] MEDS: HYDROcodone-acetaminophen 7.5-325 mg Tablet 1 TAB PO (17:26)
[2020-07-29] MEDS: orphenadrine 30 mg/mL Inj 2 mL 60 MG IM (17:27)
[2020-07-29] MEDS: ketorolac 30 mg/mL INJ IM (17:27)
[2020-07-29 18:11] VITALS: BP 109/76; PULSE 74; O2SAT 98
== END 2020-07-29 18:13 | disposition home or self-care (01) ==
PROVIDERS: Emergency Provider Nurse Practitioner Family; PCP Nurse Practitioner Family
DX: M76.9 Unspecified enthesopathy, lower limb, excluding foot (principal); Z87.891 Personal history of nicotine dependence
CPT/HCPCS: 73502; 96372; 99283; J1885; J2360

== ENCOUNTER → 2020-09-27 12:31 | Outpatient (BNVA) | payer MEDICAID, SELFPAY | PROVIDERS: PCP Nurse Practitioner Family; Visit Provider Internal Medicine Rheumatology | DX: R76.8 Other specified abnormal immunological findings in serum (principal); M46.1 Sacroiliitis, not elsewhere classified; M19.90 Unspecified osteoarthritis, unspecified site; Z79.899 Other long term (current) drug therapy; G89.29 Other chronic pain; Z87.891 Personal history of nicotine dependence | CPT/HCPCS: 36415; 80076; 82565; 85025; 86140; 99214 ==

== ENCOUNTER 2020-10-02 20:00 | Outpatient (CLI) | payer MEDICAID, SELFPAY | END 2020-10-02 20:01 | disposition home or self-care (01) | LOC: SLEEP 10-03 08:39 | PROVIDERS: PCP Nurse Practitioner Family; Visit Provider Specialist | DX: G47.33 Obstructive sleep apnea (adult) (pediatric) (principal) | CPT/HCPCS: 95810 ==

== ENCOUNTER → 2020-10-11 10:51 | Outpatient (BNVA) | payer MEDICAID, SELFPAY | PROVIDERS: PCP Nurse Practitioner Family; Visit Provider Specialist | DX: F44.5 Conversion disorder with seizures or convulsions (principal); F43.10 Post-traumatic stress disorder, unspecified; G43.711 Chronic migraine without aura, intractable, with status migrainosus; M35.9 Systemic involvement of connective tissue, unspecified; Z87.891 Personal history of nicotine dependence | CPT/HCPCS: 99215 ==

== ENCOUNTER → 2020-12-20 13:38 | Outpatient (BNVA) | payer MEDICAID, SELFPAY | PROVIDERS: PCP Nurse Practitioner Family; Visit Provider Internal Medicine Rheumatology | DX: M47.819 Spondylosis without myelopathy or radiculopathy, site unspecified (principal); M46.1 Sacroiliitis, not elsewhere classified; M35.9 Systemic involvement of connective tissue, unspecified; D64.9 Anemia, unspecified; Z79.899 Other long term (current) drug therapy; K76.0 Fatty (change of) liver, not elsewhere classified; Z71.89 Other specified counseling; Z87.891 Personal history of nicotine dependence | CPT/HCPCS: 99214 ==

== ENCOUNTER → 2021-02-07 09:57 | Outpatient (BNVA) | payer MEDICAID, SELFPAY | PROVIDERS: PCP Nurse Practitioner Family; Visit Provider Specialist | DX: G40.909 Epilepsy, unspecified, not intractable, without status epilepticus (principal); Z87.891 Personal history of nicotine dependence | CPT/HCPCS: 95816 ==

== ENCOUNTER 2021-02-10 19:31 | Emergency (ER) | payer MEDICAID, SELFPAY ==
[2021-02-10 19:42] VITALS: BP 142/88; PULSE 98; RESP 20; TEMP 36.9; O2SAT 97; BMI 43.5
--- NOTE | 2021-02-10 21:19 | XRR_ITS ---
PROCEDURE INFORMATION: Exam: XR Chest Exam date and time: 02/10/2021 9:19 PM Age: 40 years old Clinical indication: Cough and shortness of breath; Patient HX: Covid +; Additional info: Bronchitis/covid SX. Consolidation/pna? TECHNIQUE: Imaging protocol: XR of the chest. Views: 1 view. COMPARISON: CR XR chest 1V portable [id number] 02/02/2020 3:52 AM FINDINGS: Lungs: No consolidation. Pleural spaces: No pleural effusion. No pneumothorax. Heart/Mediastinum: No cardiomegaly. Bones/joints: Unremarkable. XR/XR chest 1V portable [id number] IMPRESSION: 1. No acute abnormality demonstrated. 2. There is no interval change from the prior examination.
[2021-02-10 21:22] VITALS: PULSE 84; O2SAT 95
--- NOTE | 2021-02-10 21:24 | ECG_ITS ---
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 Measurements Intervals Alpha Rate: 71 P: 41 AZ: 145 QRS: 29 QRSD: 88 T: 33 QT: 386 QTc: 421 Interpretive Statements SINUS RHYTHM Compared to ECG 06/11/2020 06:12:38 No significant changes Electronically Signed On 02-11-2021 21:43:14 CDT by Ariel Rawls M.D. [email or web address]
[2021-02-10 21:38] LABS: HCG Qualitative Urine. Negative (Negative)
[2021-02-10 21:44] LABS: Influenza A by IFA Negative (Negative); Influenza B by IFA Negative (Negative); SARS Covid-2 Antigen Positive (Negative)
[2021-02-10] MEDS: ondansetron 2 mg/ML SDV 2 mL 4 MG IVP (21:58)
[2021-02-10] MEDS: sodium chloride 0.9% 1,000 ML 999 ML IV (21:58)
[2021-02-10 22:07] LABS: Hemoglobin 11.2 g/dL (11.5-15.3); Mean Corpuscular Volume 72.6 fl (81-99); Nucleated Red Blood Cells % 0 %; Platelet Count 212 10^3/cmm (130-400)
[2021-02-10 22:12] LABS: Basophils % 0.4 %; Eosinophils % 0.9 %; Lymphocytes # 1.5 10^3/uL (0.8-4.8); Lymphocytes % 33.1 %; Mean Corpuscular HGB Conc 28.7 g/dL (30.0-36.0); Mean Corpuscular Hemoglobin 20.9 pg (28.0-34.0); Mean Platelet Volume 10.7 fL (7.4-10.4); Monocytes # 0.5 10^3/uL (0.2-0.9); Monocytes % 10.3 %; Neutrophils # 2.51 10^3/uL (1.8-7.7); Neutrophils % 55.1 %; Red Blood Count 5.37 10^6/uL (4.1-5.3); Red Cell Distribution Width 19.9 % (12.1-15.1); White Blood Count 4.6 10^3/uL (4.0-10.0)
[2021-02-10 22:16] LABS: Alanine Aminotransferase 32 U/L (0-33); Albumin Level 4.2 g/dL (3.5-5.2); Alkaline Phosphatase 84 IU/L (35-105); Anion Gap 15.8 (5-19); Aspartate Amino Transferase 23 U/L (0-32); Blood Urea Nitrogen 9 mg/dL (6-20); C Reactive Protein 9.1 mg/L (0.0-4.9); Carbon Dioxide 21 mmol/L (22-29); Chloride 106 mmol/L (98-107); Globulin 3.6 g/dL (1.3-4.6); Glomerular Filtration Rate 91.8 mL/min (90-130); Glucose 133 mg/dL (65-115); Osmolality Calculated 289 mOsm/kg (285-295); Potassium 3.8 mmol/L (3.5-5.1); Sodium 139 mmol/L (136-145); Total Bilirubin 0.2 mg/dL (0.15-1.2); Total Protein 7.8 g/dL (6.6-8.7)
[2021-02-10 22:17] LABS: Lactate (Lactic Acid level) 1.4 mmol/L (0.5-2.2)
--- NOTE | 2021-02-10 22:29 | ED_ITS ---
HPI - COVID General: Chief Complaint: Shortness of Breath/Dyspnea Stated Complaint: Coughing; SOB; CP Time Seen by Provider: 02/10/21 21:07 Triage information: Has fever, cough or shortness of breath . No known COVID + exposure last 14 days History of Present Illness: HPI Narrative: The patient is a 40-year-old female with past medical history fibromyalgia, lupus on Humira, obese. She comes to the ER complaining of several days of symptoms which started with diarrhea and progressed to cough and shortness of breath. She says she did go on a woman's retreat shortly before she got sick which she thinks she could have been exposed there. Says she has not developed a fever and is taking no medications for her illness. She says she was not able to drink fluids all day today because thinking about food makes her nauseous. She tested positive today in the ED. MD complaint: reported COVID exposure and has COVID symptoms Prior covid testing: no COVID 19 common symptoms: positive chills, cough, non-productive cough, dyspnea, fatigue, loss of sense of smell and/or taste and diarrhea; negative headache(s), throat pain or nasal congestion COVID 19 other sytmptoms: negative chest pain or confusion Onset (ago): week(s) (1) Severity: mild COVID Results: SARS-CoV-2 Antigen (Rapid) Positive (Negative) H 02/10/21 21:12 02/10/21 SARS-CoV-2 RNA (RT-PCR) Not detected (NOT DETECTED) 06/05/20 17:03 06/05/20 Review of Systems General: Reports: 10 or more systems reviewed and unremarkable except in HPI and below Const: Reports: chills and fatigue Eyes: Denies: change in vision, blurry vision or eye redness ENMT: Denies: throat pain, swelling of lips/tongue, ear or mastoid pain or nasal congestion Card: Denies: chest pain, palpitations, irregular heart rhythm, edema, dyspnea on exertion or orthopnea Resp: Reports: dyspnea and non-productive cough GI: Reports: diarrhea : Denies: flank pain, difficulty voiding, urinary frequency or urinary urgency Musc: Denies: neck pain, back pain, extremity pain, joint pain, joint redness, limited range of motion or muscle weakness Skin/Breast: Denies: rash, pruritus, erythema, skin pain or skin tenderness Neuro: Denies: headache(s), numbness in extremities, weakness in extremities, sensory changes, difficulty walking, dizziness, confusion or Slurred speech present Psych: Denies: anxiety or depression Endo: Denies: polyuria All/Imm: Denies: urticaria, throat swelling or tongue swelling PFSH ED PFSH: Medical History (Updated 02/10/21 @ 22:33 by Amrit Lomeli MD) Anemia Depression Fibromyalgia Gastritis Inflammatory arthritis Intervertebral disc disorder with radiculopathy of lumbar region Loss of consciousness PTSD (post-traumatic stress disorder) Sacroiliitis Spondylarthritis Undifferentiated connective tissue disease Surgical History H/O esophagogastroduodenoscopy 08/02/2019: Gastric erosions History of cholecystectomy History of dilation and curettage History of tonsillectomy History of tubal ligation Family History Mother Arthritis Heart disease Stroke Father Cancer Diabetes Heart disease Kidney disease Social History Smoking and tobacco status: former smoker Alcohol intake: never Household members: children Marital status: Current occupational status: unemployed History of recent travel: No Female Reproductive History: Date of last menstrual period: 01/14/20 Physical Exam Const: COMMON NORMALS: no acute distress, average body habitus, patient oriented x3, no limitations, healthy appearing, alert and well nourished GENERAL APPEARANCE: cooperative, comfortable, well kempt and well developed ORIENTATION/CONSCIOUSNESS: Yes awake, Yes oriented to person, Yes oriented to place and Yes oriented to time HENMT: COMMON NORMALS: normocephalic, external ears normal and Normal external nose present HEAD & SCALP: normal to inspection and normocephalic NOSE: Normal external nose present EXTERNAL EAR: Yes external ears normal MOUTH: Normal oral and palatal mucosa present THROAT: posterior oropharynx normal Eye: COMMON NORMALS: Equal, round and reactive pupils present and EOMs intact bilaterally GENERAL EYE: appearance normal, both eyes and all related structures PUPIL: Yes Equal, round and reactive pupils present Neck/C-Spine: COMMON NORMALS: full ROM, no lymphadenopathy, no meningeal signs and no JVD GENERAL: Yes normal visual inspection Lymph: LYMPHATIC: no lymphadenopathy noted Chest: COMMONS NORMALS: normal inspection of the chest and normal palpation of entire chest wall Resp: COMMON NORMALS: normal respiratory effort, No retractions, No use of accessory muscles, clear to auscultation bilaterally and percussion normal EFFORT & INSPECTION: Yes able to speak in complete sentences AUSCULTATION: clear to auscultation bilaterally PERCUSSION: percussion normal Cardio: COMMON NORMALS: no JVD, regular rate, regular rhythm, S1 normal heart sound present, S2 normal heart sound present and Peripheral pulses 2+ throughout RATE: regular rate RHYTHM: regular rhythm HEART SOUNDS: S1 normal heart sound present and S2 normal heart sound present PERIPHERAL PULSES: Peripheral pulses 2+ throughout GI: COMMON NORMALS: Normal to inspection, nondistended, normoactive bowel sounds present, Soft to palpation, non-tender and no masses INSPECTION: Yes normal to inspection PALPATION: Yes Soft to palpation : COMMON NORMALS: Yes no CVA tenderness BLADDER/KIDNEY EXAM: Yes no CVA tenderness Back/Pelvis: COMMON NORMALS: no CVA tenderness, thoracic and lumbar spine normal to inspection, no thoracic nor lumbar tenderness and thoraco-lumbar ROM normal Extremity: COMMON NORMALS: normal to inspection, full ROM, capillary refill normal, no joint enlargement and no pedal edema GENERAL: Yes normal exam except as noted Neuro: COMMON NORMALS: patient oriented x3, CN's II-XII intact bilaterally, moves all extremities, no focal motor deficits, no sensory deficits noted and gait normal SENSORIUM/ORIENTATION: Yes alert, Yes oriented to person, Yes oriented to place and Yes oriented to time MENINGEAL SIGNS: Yes no meningeal signs Psych: COMMON NORMALS: mental status grossly normal, Normal thought process present, cooperative, normal affect and speech normal APPEARANCE: Yes well kempt ATTITUDE: Yes calm SPEECH: Yes normal speech THOUGHT PROCESS: Normal thought process present Skin: COMMON NORMALS: no rashes or lesions noted GENERAL SKIN EXAM: no rashes or lesions noted Course Vital Signs: Vital signs: Vital Signs Temperature 98.5 F 02/10/21 19:42 Pulse Rate 68 02/11/21 00:03 Respiratory Rate 22 H 02/11/21 00:03 Blood Pressure 112/59 02/11/21 00:03 Pulse Oximetry 98 02/11/21 00:03 MDM - COVID MDM Narrative: Medical decision making narrative: Patient swab positive for Covid here. She is not requiring oxygen. She is obese and on immunosuppressive therapy for her lupus. We will give her BAM injection in the ED since it has been several days since the onset of her symptoms. She tolerated the infusion well. She is not requiring oxygen. I will discharge her with azithromycin and a prednisone burst as well. She says her allergy to methylprednisolone is palpitations. That is not a true allergy. I asked her if she would like the prednisone as it is recommended and she agreed. That is why I will give her prednisone as she has tolerated it before in the past. If she has palpitations she can discontinue it. Return to the ER at anytime with worsening symptoms. Primary care in a few days to monitor improvement of sym ptoms Lab Data: Labs: Lab Results 02/10/21 02/10/21 02/10/21 21:10 21:12 21:12 WBC RBC Hgb Hct MCV MCH MCHC RDW Plt Count MPV Neut % (Auto) Lymph % (Auto) Cavalier % (Auto) Eos % (Auto) Baso % (Auto) Neut # (Auto) Lymph # (Auto) Cavalier # (Auto) Eos # (Auto) Baso # (Auto) Nucleated RBC % (a uto) Nucleated RBCs # Sodium Potassium Chloride Carbon Dioxide Anion Gap BUN Creatinine GFR Calculation Glucose Calculated Osmolal ity Lactate Calcium Total Bilirubin AST ALT Alkaline Phosphata se C-Reactive Protein Total Protein Albumin Globulin HCG, Qual Negative (Negative) Influenza Type A A g Negative (Negative) Influenza Type B A g Negative (Negative) SARS-CoV-2 Ag (Rap id) Positive H (Negative) 02/10/21 02/10/21 02/10/21 21:43 21:43 21:43 WBC 4.6 10^3/uL 10^3/ uL (4.0-10.0) RBC 5.37 10^6/uL H 10 ^6/uL (4.1-5.3) Hgb 11.2 g/dL L g/dL (11.5-15.3) Hct 39.0 % % (37.0-47.0) MCV 72.6 fl L fl (81-99) MCH 20.9 pg L pg (28.0-34.0) MCHC 28.7 g/dL L g/dL (30.0-36.0) RDW 19.9 % H % (12.1-15.1) Plt Count 212 10^3/cmm 10^3 /cmm (130-400) MPV 10.7 fL H fL (7.4-10.4) Neut % (Auto) 55.1 % % Lymph % (Auto) 33.1 % % Cavalier % (Auto) 10.3 % % Eos % (Auto) 0.9 % % Baso % (Auto) 0.4 % % Neut # (Auto) 2.51 10^3/uL 10^3 /uL (1.8-7.7) Lymph # (Auto) 1.5 10^3/uL 10^3/ uL (0.8-4.8) Cavalier # (Auto) 0.5 10^3/uL 10^3/ uL (0.2-0.9) Eos # (Auto) 0.0 10^3/uL 10^3/ uL (0.0-0.8) Baso # (Auto) 0.0 10^3/uL 10^3/ uL (0.0-0.1) Nucleated RBC % (a uto) 0 % % Nucleated RBCs # 0.0 /100WBC /100W BC Sodium 139 mmol/L mmol/L (136-145) Potassium 3.8 mmol/L mmol/L (3.5-5.1) Chloride 106 mmol/L mmol/L (98-107) Carbon Dioxide 21 mmol/L L mmol/ L (22-29) Anion Gap 15.8 (5-19) BUN 9 mg/dL mg/dL (6-20) Creatinine 0.7 mg/dL mg/dL (0.5-0.9) GFR Calculation 91.8 mL/min mL/mi n (90-130) Glucose 133 mg/dL H mg/dL (65-115) Calculated Osmolal ity 289 mOsm/kg mOsm/ kg (285-295) Lactate 1.4 mmol/L mmol/L (0.5-2.2) Calcium 9.0 mg/dL mg/dL (8.5-10.5) Total Bilirubin 0.2 mg/dL mg/dL (0.15-1.2) AST 23 U/L U/L (0-32) ALT 32 U/L U/L (0-33) Alkaline Phosphata se 84 IU/L IU/L (35-105) C-Reactive Protein 9.1 mg/L H mg/L (0.0-4.9) Total Protein 7.8 g/dL g/dL (6.6-8.7) Albumin 4.2 g/dL g/dL (3.5-5.2) Globulin 3.6 g/dL g/dL (1.3-4.6) HCG, Qual Influenza Type A A g Influenza Type B A g SARS-CoV-2 Ag (Rap id) COVID Results: SARS-CoV-2 Antigen (Rapid) Positive (Negative) H 02/10/21 21:12 02/10/21 SARS-CoV-2 RNA (RT-PCR) Not detected (NOT DETECTED) 06/05/20 17:03 06/05/20 Discharge Plan Discharge Patient Disposition: Home Clinical Impression: COVID-19 Condition: Stable Prescriptions: New azithromycin 250 mg tablet 250 mg PO DAILY 4 Days Qty: 4 RF: 0 prednisone 20 mg tablet 20 mg PO BID 5 Days Qty: 10 RF: 0 No Action buspirone 10 mg tablet 40 mg PO BID RF: 0 Humira Pen 40 mg/0.8 mL pen injector kit 40 mg SUBCUT .Q7days Qty: 4 RF: 3 diclofenac sodium 75 mg tablet,delayed release (DR/EC) See Rx Instructions .ROUTE .COMPLEX Qty: 30 RF: 0 gabapentin 600 mg tablet 600 mg PO BID Qty: 60 RF: 3 pantoprazole 40 mg tablet,delayed release (DR/EC) 40 mg PO DAILY Qty: 30 RF: 3 ferrous gluconate [Ferate] 240 mg (27 mg iron) tablet 240 mg PO DAILY RF: 0 fluticasone propionate [Allergy Relief (fluticasone)] 50 mcg/actuation spray,suspension 2 spray INTRANASAL DAILY PRN (Reason: Nasal Congestion) RF: 0 hydroxyzine HCl 25 mg tablet 25 mg PO BID PRN (Reason: Anxiety) RF: 0 tizanidine 4 mg capsule 8 mg PO BID RF: 0 zonisamide [Zonegran] 100 mg capsule 400 mg PO DAILY Qty: 120 RF: 2 Ajovy Autoinjector 225 mg/1.5 mL auto-injector 225 mg SUBCUT ONCE Qty: 1.5 RF: 2 ropinirole 1 mg tablet 1 mg PO TID RF: 0 metformin 500 mg tablet 1,000 mg PO BID RF: 0 simvastatin 20 mg Tablet 20 mg PO DAILY RF: 0 cyclobenzaprine 10 mg tablet 10 mg PO TID PRN (Reason: muscle spasm) Qty: 14 RF: 0 Victoza 3-Jone 0.6 mg/0.1 mL (18 mg/3 mL) pen injector 0.6 mg SUBCUT DAILY RF: 0 Discharge Orders: Discharge ED (Routine); Ordered 02/11/21 Ordered By: Amrit Lomeli Referrals: Joan Ferreira FNP [Primary Care Provider] - Discharge Diet: Advance as tolerated Patient Instructions: Upper Respiratory Infection (ED), Opioid Safety Activity Restrictions/Additional Instructions: You are suffering from COVID-19. Please continue to quarantine at home and take the antibiotics and steroids to help with your infection. If the steroids give you palpitations as you have had in the past with other types of steroids please discontinue them and continue taking the azithromycin antibiotic. You have also received to the antibody infusion in the ED and have tolerated it well. This should continue to help your infection. Return to the ED at anytime with worsening symptoms otherwise follow-up with your primary care physician in a few days. Drink lots of fluids and take Tylenol for fevers or pains. You may also use your albuterol inhaler to help with your shortness of breath. Buy a portable pulse oximeter at [facility] or a drugstore to put on your finger to make sure you are saturating above 90% oxygenation. Put it on your finger and hold your hand still for 10 seconds before reading the oxygen saturation as it takes several seconds to read it correctly and your hand must be held still. Again return to the ER at anytime with worsening symptoms Coding Level of Care Code ED Certified Nuclear Medicine Technologist for Andres Jarrell Exam Comprehensive
[2021-02-10 22:48] LABS: Slide Review Slide Review Perform
[2021-02-10 23:44] VITALS: PULSE 81; O2SAT 100
[2021-02-11 00:03] VITALS: BP 112/59; PULSE 68; RESP 22; O2SAT 98
[2021-02-11] MEDS: azithromycin 250 mg Tablet 500 MG PO (00:10)
[2021-02-11] MEDS: predniSONE 20 mg Tablet 40 MG PO (00:10)
[2021-02-11 01:19] LABS: D Dimer 0.34 ug/mIFEU (0-0.59)
[2021-02-11 01:51] LABS: Add Urine Microscopic? NO; Charge for UA Resulting for Rev
[2021-02-11 01:52] VITALS: BP 112/59; PULSE 68; RESP 22; O2SAT 98
[2021-02-11 02:01] LABS: Bilirubin Urine 1+ (Negative); Blood Urine Neg (Negative); Glucose Urine UA Norm (Normal); Ketones Urine Negative (Negative); Leukocyte Esterase Urine Negative (Negative); Nitrate Urine Negative (Negative); Protein Urine Neg (Negative); Specific Gravity, Urine 1.025 (1.005-1.030); Urine Appearance Clear (CLEAR); Urine Color Yellow (Yellow); Urobilinogen Urine Norm (Negative); pH Urine 5 (5-7)
--- NOTE | 2021-02-19 18:06 | PC.SOCIAL ---
82-9, 1609 antibody infusion follow up call: symptoms prior to infusion: cough, sob, chest hurting patient o2 95% after infusion, continues to have cough, shortness of breath improved.
== END 2021-02-11 01:45 | disposition home or self-care (01) ==
PROVIDERS: Emergency Provider Family Medicine; PCP Nurse Practitioner Family
DX: U07.1 COVID-19 (principal); Z79.84 Long term (current) use of oral hypoglycemic drugs; Z87.891 Personal history of nicotine dependence
CPT/HCPCS: 71045; 80053; 81003; 81025; 83605; 85025; 85378; 86140; 87426; 87804; 93005; 96365; 96375; 99284; J2405; J7030; J7512; Q0144

== ENCOUNTER 2021-03-01 16:10 | Emergency (ER) | payer MEDICAID, SELFPAY ==
[2021-03-01 16:18] VITALS: BP 112/53; PULSE 72; RESP 16; TEMP 36.5; O2SAT 98; BMI 43.5
[2021-03-01 16:32] VITALS: BP 104/65; PULSE 72; RESP 16; TEMP 36.6; O2SAT 95
--- NOTE | 2021-03-01 16:55 | ECG_ITS ---
[facility] Test Date: 2021-03-01 Pat Name: Lorri Hernandes Department: Room: Gender: Female [employer] Operator: : 1980 Requested By: Yogesh Kimball Order Number: [id number] Jeb MD: Rosemary Echavarria M.D. Measurements Intervals Ethel Rate: 69 P: 52 NJ: 158 QRS: 41 QRSD: 91 T: 31 QT: 424 QTc: 455 Interpretive Statements SINUS RHYTHM Compared to ECG 02/10/2021 22:39:41 No significant changes Electronically Signed On 03-02-2021 5:39:54 CDT by Rosemary Echavarria M.D. [id number]
--- NOTE | 2021-03-01 16:56 | CTR_ITS ---
PROCEDURE INFORMATION: Exam: CT Head Without Contrast Exam date and time: 03/01/2021 4:56 PM Age: 40 years old Clinical indication: Dizziness; Additional info: Dizzy; Possible seizure; Blurred vision, shield abd; H/o tubal ligation TECHNIQUE: Imaging protocol: Computed tomography of the head without contrast. Radiation optimization: All CT scans at this facility use at least one of these dose optimization techniques: automated exposure control; mA and/or kV adjustment per patient size (includes targeted exams where dose is matched to clinical indication); or iterative reconstruction. COMPARISON: CT head wo con* [id number] 02/02/2020 3:30 AM RADIATION DOSE METRICS: Total DLP (mGy-cm): 865.35 FINDINGS: Brain: Normal. No hemorrhage. Unremarkable white matter. No mass effect. Cerebral ventricles: No ventriculomegaly. Paranasal sinuses: Visualized sinuses are unremarkable. No fluid levels. Mastoid air cells: Visualized mastoid air cells are well aerated. Bones/joints: Unremarkable. No acute fracture. Soft tissues: Unremarkable. CT/CT head wo con* [id number] IMPRESSION: No acute intracranial abnormality. Radiation Dose CTDIVOL = (mGy): DLP = 865.35 (mGy-cm)
--- NOTE | 2021-03-01 16:59 | W.ED.SEIZURE ---
HPI - Seizure General: Chief Complaint: Seizure Stated Complaint: SEIZURE LIKE ACTIVITY Time Seen by Provider: 03/01/21 16:28 Source: patient Limitations: no limitations History of Present Illness: HPI Narrative: Patient with complaints of possible seizure today. Patient states that she had some twitching in her right face. She did lose consciousness briefly. She states she has not lost consciousness before with seizures. She denies any pain anywhere. She states she did have blurred vision earlier but that has resolved. She states she feels groggy and slightly altered. She denies taking any additional prescribed medication. See medication list. She is on multiple medications. She states she takes zonisamide 400 mg daily for seizures. She is also on doxycycline for diverticulitis, Protonix, citalopram, ropinirole for restless leg, gabapentin 600 mg 3 times a day, buspirone, prednisone. She states she has not takrn hydroxyzine or phentermine recently. Patient states when she initially had the twitching in her right face her asked her she want to come the emergency room. She stated she did not want to go home and rest. She states when she got home she lost consciousness for a brief moment. She feels groggy since then. complaint: seizure and other (Altered mental status) Onset (ago): hour(s) (This afternoon) Description of Episode: loss of consciousness, post-event confusion and other (See nursing assessment) Witnessed: Yes - by Other () Trauma: No Seizure History: Yes Place: traveling Possible Precipitating Event: none Associated symptoms: Reports confusion and malaise; Deny chest pain, chills, cough, diaphoresis, fever(s), anorexia, rash, short of breath or weakness Review of Systems Const: Reports: fatigue and malaise; Denies: fever(s), chills or diaphoresis Eyes: Reports: change in vision and blurry vision ENMT: Denies: throat pain Card: Denies: chest pain, palpitations or irregular heart rhythm Resp: Denies: dyspnea or wheezing GI: Denies: abdominal pain, nausea or vomiting : Denies: flank pain Musc: Denies: neck pain or back pain Skin/Breast: Denies: rash or pruritus Neuro: Reports: dizziness, confusion and involuntary movements; Denies: headache(s) or weakness in extremities Psych: Denies: anxiety Jim/Lymph: Denies: enlarged lymph nodes PFSH ED PFSH: Medical History (Updated 03/01/21 @ 17:46 by Yogesh Mullins MD) Anemia Depression Fibromyalgia Gastritis Inflammatory arthritis Intervertebral disc disorder with radiculopathy of lumbar region Loss of consciousness PTSD (post-traumatic stress disorder) Sacroiliitis Spondylarthritis Undifferentiated connective tissue disease Surgical History H/O esophagogastroduodenoscopy 08/02/2019: Gastric erosions History of cholecystectomy History of dilation and curettage History of tonsillectomy History of tubal ligation Family History Mother Arthritis Heart disease Stroke Father Cancer Diabetes Heart disease Kidney disease Social History Smoking and tobacco status: former smoker Alcohol intake: never Household members: children Marital status: Current occupational status: unemployed History of recent travel: No Female Reproductive History: Date of last menstrual period: 01/14/20 Physical Exam Const: COMMON NORMALS: no acute distress, patient oriented x3, no limitations, alert and well nourished GENERAL APPEARANCE: cooperative ORIENTATION/CONSCIOUSNESS: Yes oriented to person, Yes oriented to place and Yes oriented to time OTHER: Patient appears slightly sedated. She is alert and oriented x4. She does appear somewhat fatigued. She is morbidly obese. HENMT: COMMON NORMALS: normocephalic, atraumatic, external ears normal and Normal external nose present HEAD & SCALP: normocephalic and atraumatic FACE & SINUS: normal facial exam NOSE: Normal external nose present EXTERNAL EAR: Yes external ears normal MOUTH: Normal oral and palatal mucosa present and tongue normal Eye: COMMON NORMALS: Equal, round and reactive pupils present, EOMs intact bilaterally, conjunctivae normal and no scleral icterus CONJUNCTIVA: Yes conjunctivae normal PUPIL: Yes Equal, round and reactive pupils present Neck/C-Spine: COMMON NORMALS: full ROM, no lymphadenopathy, supple, no meningeal signs, no JVD, Thyroid normal and No carotid bruits GENERAL: Yes normal visual inspection THYROID: Thyroid normal Lymph: LYMPHATIC: no lymphadenopathy noted Chest: COMMONS NORMALS: normal inspection of the chest and normal palpation of entire chest wall CHEST: No Ecchymosis present and No rash Resp: COMMON NORMALS: normal respiratory effort, No retractions and clear to auscultation bilaterally EFFORT & INSPECTION: No respiratory distress AUSCULTATION: clear to auscultation bilaterally Cardio: COMMON NORMALS: no JVD, regular rate, regular rhythm and Peripheral pulses 2+ throughout JUGULAR VENOUS DISTENTION: no JVD RATE: regular rate RHYTHM: regular rhythm PERIPHERAL PULSES: Peripheral pulses 2+ throughout GI: COMMON NORMALS: Normal to inspection, nondistended, normoactive bowel sounds present, Soft to palpation, non-tender, No hepatosplenomegaly present and no masses PALPATION: Yes Soft to palpation and Yes No hepatosplenomegaly present : COMMON NORMALS: Yes no CVA tenderness BLADDER/KIDNEY EXAM: Yes no CVA tenderness Back/Pelvis: COMMON NORMALS: no CVA tenderness Extremity: COMMON NORMALS: normal to inspection, full ROM and capillary refill normal Neuro: COMMON NORMALS: patient oriented x3, CN's II-XII intact bilaterally, moves all extremities, no focal motor deficits, no sensory deficits noted and deep tendon reflexes 2+ bilaterally SENSORIUM/ORIENTATION: Yes alert, Yes oriented to person, Yes oriented to place and Yes oriented to time MENINGEAL SIGNS: Yes no meningeal signs Psych: COMMON NORMALS: mental status grossly normal, Normal thought process present, cooperative, normal affect, speech normal and activity/motor behavior normal SPEECH: Yes normal speech THOUGHT PROCESS: Normal thought process present Skin: COMMON NORMALS: no rashes or lesions noted and no wounds GENERAL SKIN EXAM: no rashes or lesions noted Course Vital Signs: Vital signs: Vital Signs Temperature 97.8 F 03/01/21 18:07 Pulse Rate 84 03/01/21 18:07 Respiratory Rate 16 03/01/21 18:07 Blood Pressure 122/76 03/01/21 18:07 Pulse Oximetry 99 03/01/21 18:07 MDM - Seizure Differential Diagnosis: Seizure Differential Diagnosis: Likely focal seizure and generalized seizure Medical Records: Attestation: I reviewed the patient's medical records. Medical records narrative: Patient had normal EEG approximately 3 weeks ago. See neurology note by Dr. Walls. Patient states she has been off her iron replacement medication for a while. We will refill that today. Lab Data: Attestation: I reviewed the patient's lab results. Labs: Lab Results 03/01/21 03/01/21 03/01/21 16:39 16:39 17:34 WBC 10.6 10^3/uL H 10 ^3/uL (4.0-10.0) RBC 4.14 10^6/uL 10^6 /uL (4.1-5.3) Hgb 8.8 g/dL L g/dL (11.5-15.3) Hct 30.9 % L % (37.0-47.0) MCV 74.6 fl L fl (81-99) MCH 21.3 pg L pg (28.0-34.0) MCHC 28.5 g/dL L g/dL (30.0-36.0) RDW 19.5 % H % (12.1-15.1) Plt Count 291 10^3/cmm 10^3 /cmm (130-400) MPV 10.8 fL H fL (7.4-10.4) Neut % (Auto) 66.4 % % Lymph % (Auto) 23.5 % % Walsh % (Auto) 6.7 % % Eos % (Auto) 2.2 % % Baso % (Auto) 0.5 % % Neut # (Auto) 7.04 10^3/uL 10^3 /uL (1.8-7.7) Lymph # (Auto) 2.5 10^3/uL 10^3/ uL (0.8-4.8) Walsh # (Auto) 0.7 10^3/uL 10^3/ uL (0.2-0.9) Eos # (Auto) 0.2 10^3/uL 10^3/ uL (0.0-0.8) Baso # (Auto) 0.1 10^3/uL 10^3/ uL (0.0-0.1) Nucleated RBC % (a uto) 0 % % Nucleated RBCs # 0.0 /100WBC /100W BC Sodium 134 mmol/L L mmol /L (136-145) Potassium 4.0 mmol/L mmol/L (3.5-5.1) Chloride 103 mmol/L mmol/L (98-107) Carbon Dioxide 20 mmol/L L mmol/ L (22-29) Anion Gap 15.0 (5-19) BUN 12 mg/dL mg/dL (6-20) Creatinine 0.6 mg/dL mg/dL (0.5-0.9) GFR Calculation 109.6 mL/min mL/m in (90-130) Glucose 149 mg/dL H mg/dL (65-115) Calculated Osmolal ity 281 mOsm/kg L mOs m/kg (285-295) Calcium 8.5 mg/dL mg/dL (8.5-10.5) Total Bilirubin 0.3 mg/dL mg/dL (0.15-1.2) AST 13 U/L U/L (0-32) ALT 12 U/L U/L (0-33) Alkaline Phosphata se 69 IU/L IU/L (35-105) Total Protein 6.7 g/dL g/dL (6.6-8.7) Albumin 3.6 g/dL g/dL (3.5-5.2) Globulin 3.1 g/dL g/dL (1.3-4.6) Urine Color Yellow (Yellow) Urine Appearance Clear (CLEAR) Urine pH 5 (5-7) Ur Specific Gravit y 1.025 (1.005-1.030) Urine Protein Neg (Negative) Urine Glucose (UA) Norm (Normal) Urine Ketones Negative (Negative) Urine Blood Neg (Negative) Urine Nitrate Negative (Negative) Urine Bilirubin 1+ H (Negative) Urine Urobilinogen 1 mg/dL H mg/dL (Negative) Ur Leukocyte Bijal ase Negative (Negative) Urine RBC None /hpf /hpf (0-2) Urine WBC None /hpf /hpf (0-5) Ur Squamous Epith Cells 15-25 /hpf H /hpf (0-5) Amorphous Sediment Not Reportable Urine Bacteria 1+ /hpf H /hpf (NONE) Urine Mucus 3+ /hpf /hpf Urine Opiates Scre en Ur Barbiturates Sc reen Ur Phencyclidine S crn Ur Amphetamines Sc reen U Benzodiazepines Scrn Urine Cocaine Scre en U Marijuana (THC) Screen 03/01/21 17:34 WBC RBC Hgb Hct MCV MCH MCHC RDW Plt Count MPV Neut % (Auto) Lymph % (Auto) Walsh % (Auto) Eos % (Auto) Baso % (Auto) Neut # (Auto) Lymph # (Auto) Walsh # (Auto) Eos # (Auto) Baso # (Auto) Nucleated RBC % (a uto) Nucleated RBCs # Sodium Potassium Chloride Carbon Dioxide Anion Gap BUN Creatinine GFR Calculation Glucose Calculated Osmolal ity Calcium Total Bilirubin AST ALT Alkaline Phosphata se Total Protein Albumin Globulin Urine Color Urine Appearance Urine pH Ur Specific Gravit y Urine Protein Urine Glucose (UA) Urine Ketones Urine Blood Urine Nitrate Urine Bilirubin Urine Urobilinogen Ur Leukocyte Bijal ase Urine RBC Urine WBC Ur Squamous Epith Cells Amorphous Sediment Urine Bacteria Urine Mucus Urine Opiates Scre en Negative ng/mL ng /mL (Negative) Ur Barbiturates Sc reen Negative ng/mL ng /mL (Negative) Ur Phencyclidine S crn Negative ng/mL ng /mL (Negative) Ur Amphetamines Sc reen Negative ng/mL ng /mL (Negative) U Benzodiazepines Scrn Negative ng/mL ng /mL (Negative) Urine Cocaine Scre en Negative ng/mL ng /mL (Negative) U Marijuana (THC) Screen Negative ng/mL ng /mL (Negative) Imaging Data^: CT Head: Attestation: I personally reviewed and interpreted this imaging study as follows: Radiologist's impression: PROCEDURE INFORMATION: Exam: CT Head Without Contrast Exam date and time: 03/01/2021 4:56 PM Age: 40 years old Clinical indication: Dizziness; Additional info: Dizzy; Possible seizure; Blurred vision, shield abd; H/o tubal ligation TECHNIQUE: Imaging protocol: Computed tomography of the head without contrast. Radiation optimization: All CT scans at this facility use at least one of these dose optimization techniques: automated exposure control; mA and/or kV adjustment per patient size (includes targeted exams where dose is matched to clinical indication); or iterative reconstruction. COMPARISON: CT head wo con* [id number] 02/02/2020 3:30 AM RADIATION DOSE METRICS: Total DLP (mGy-cm): 865.35 FINDINGS: Brain: Normal. No hemorrhage. Unremarkable white matter. No mass effect. Cerebral ventricles: No ventriculomegaly. Paranasal sinuses: Visualized sinuses are unremarkable. No fluid levels. Mastoid air cells: Visualized mastoid air cells are well aerated. Bones/joints: Unremarkable. No acute fracture. Soft tissues: Unremarkable. CT/CT head wo con* [id number] IMPRESSION: No acute intracranial abnormality. Radiation Dose CTDIVOL = (mGy): DLP = 865.35 (mGy-cm) Dictated By:Adán Brown By:Adán Brown Date/Time:03/01/21 1744 EKG Data^: EKG 1: Attestation: I personally reviewed and interpreted this EKG as follows: EKG interpretation date: 03/01/21 EKG interpretation time: 17:19 Prior EKG tracings: not available for review Interpretation: EKG shows normal sinus rhythm heart rate is 69. Normal CO interval, normal QRS interval normal QT interval, normal ST segment, normal axis. Normal T waves. Impression normal EKG. Discharge Plan Discharge Clinical Impression: Loss of consciousness Anemia Qualifiers: Anemia type: iron deficiency Iron deficiency anemia type: unspecified iron deficiency Qualified Code(s): D50.9 - Iron deficiency anemia, unspecified Condition: Stable Prescriptions: No Action buspirone 10 mg tablet 40 mg PO BID RF: 0 Humira Pen 40 mg/0.8 mL pen injector kit 40 mg SUBCUT .Q7days Qty: 4 RF: 3 diclofenac sodium 75 mg tablet,delayed release (DR/EC) See Rx Instructions .ROUTE .COMPLEX Qty: 30 RF: 0 gabapentin 600 mg tablet 600 mg PO BID Qty: 60 RF: 3 ferrous gluconate [Ferate] 240 mg (27 mg iron) tablet 240 mg PO DAILY RF: 0 fluticasone propionate [Allergy Relief (fluticasone)] 50 mcg/actuation spray,suspension 2 spray INTRANASAL DAILY PRN (Reason: Nasal Congestion) RF: 0 hydroxyzine HCl 25 mg tablet 25 mg PO BID PRN (Reason: Anxiety) RF: 0 tizanidine 4 mg capsule 8 mg PO BID RF: 0 zonisamide [Zonegran] 100 mg capsule 400 mg PO DAILY Qty: 120 RF: 2 Ajovy Autoinjector 225 mg/1.5 mL auto-injector 225 mg SUBCUT ONCE Qty: 1.5 RF: 2 ropinirole 1 mg tablet 1 mg PO TID RF: 0 pantoprazole 40 mg tablet,delayed release (DR/EC) 40 mg PO DAILY Qty: 30 RF: 3 metformin 500 mg tablet 1,000 mg PO BID RF: 0 simvastatin 20 mg Tablet 20 mg PO DAILY RF: 0 cyclobenzaprine 10 mg tablet 10 mg PO TID PRN (Reason: muscle spasm) Qty: 14 RF: 0 Victoza 3-Jone 0.6 mg/0.1 mL (18 mg/3 mL) pen injector 0.6 mg SUBCUT DAILY RF: 0 Coding Level of Care Code ED Supervisor [employer] for Chg Fwd Exam Comprehensive
[2021-03-01 17:19] LABS: Basophils # 0.1 10^3/uL (0.0-0.1); Basophils % 0.5 %; Eosinophils # 0.2 10^3/uL (0.0-0.8); Eosinophils % 2.2 %; Hematocrit 30.9 % (37.0-47.0); Hemoglobin 8.8 g/dL (11.5-15.3); Lymphocytes # 2.5 10^3/uL (0.8-4.8); Lymphocytes % 23.5 %; Mean Corpuscular HGB Conc 28.5 g/dL (30.0-36.0); Mean Corpuscular Hemoglobin 21.3 pg (28.0-34.0); Mean Corpuscular Volume 74.6 fl (81-99); Mean Platelet Volume 10.8 fL (7.4-10.4); Monocytes # 0.7 10^3/uL (0.2-0.9); Monocytes % 6.7 %; Neutrophils # 7.04 10^3/uL (1.8-7.7); Neutrophils % 66.4 %; Nucleated Red Blood Cells % 0 %; Platelet Count 291 10^3/cmm (130-400); Red Blood Count 4.14 10^6/uL (4.1-5.3); Red Cell Distribution Width 19.5 % (12.1-15.1); White Blood Count 10.6 10^3/uL (4.0-10.0)
[2021-03-01 17:29] LABS: Alanine Aminotransferase 12 U/L (0-33); Albumin Level 3.6 g/dL (3.5-5.2); Alkaline Phosphatase 69 IU/L (35-105); Aspartate Amino Transferase 13 U/L (0-32); Blood Urea Nitrogen 12 mg/dL (6-20); Calcium 8.5 mg/dL (8.5-10.5); Carbon Dioxide 20 mmol/L (22-29); Chloride 103 mmol/L (98-107); Creatinine Clr Calc Pharmacy 163.0675; Globulin 3.1 g/dL (1.3-4.6); Glomerular Filtration Rate 109.6 mL/min (90-130); Glucose 149 mg/dL (65-115); Osmolality Calculated 281 mOsm/kg (285-295); Sodium 134 mmol/L (136-145); Total Bilirubin 0.3 mg/dL (0.15-1.2); Total Protein 6.7 g/dL (6.6-8.7)
[2021-03-01 17:41] VITALS: BP 108/63; PULSE 71; RESP 16; TEMP 36.5; O2SAT 96
[2021-03-01 18:00] LABS: Bilirubin Urine 1+ (Negative); Blood Urine Neg (Negative); Glucose Urine UA Norm (Normal); Ketones Urine Negative (Negative); Leukocyte Esterase Urine Negative (Negative); Nitrate Urine Negative (Negative); Protein Urine Neg (Negative); Specific Gravity, Urine 1.025 (1.005-1.030); Urine Appearance Clear (CLEAR); Urine Color Yellow (Yellow); Urobilinogen Urine 1 mg/dL (Negative); pH Urine 5 (5-7)
[2021-03-01 18:06] LABS: Add Urine Culture? No; Bacteria Urine 1+ /hpf; Mucus Urine 3+ /hpf; Squamous Epithelial Cell Urine 15-25 /hpf (0-5)
[2021-03-01 18:07] VITALS: BP 122/76; PULSE 84; RESP 16; TEMP 36.6; O2SAT 99
[2021-03-01 18:09] LABS: Amphetamines Screen Urine Negative (Negative); Barbiturates Screen Urine Negative (Negative); Benzodiazepines Screen Urine Negative (Negative); Cocaine Screen Urine Negative (Negative); Opiate Screen Urine Negative (Negative); PCP Screen Urine Negative (Negative); THC Screen Urine Negative (Negative)
[2021-03-01 18:31] VITALS: BP 107/61; PULSE 75; RESP 14; TEMP 36.6; O2SAT 97
== END 2021-03-01 18:43 | disposition home or self-care (01) ==
PROVIDERS: Emergency Provider Family Medicine
DX: D50.9 Iron deficiency anemia, unspecified (principal); R55 Syncope and collapse; Z79.84 Long term (current) use of oral hypoglycemic drugs; Z87.891 Personal history of nicotine dependence
CPT/HCPCS: 70450; 80053; 80306; 81001; 85025; 87086; 93005; 99283

== ENCOUNTER → 2021-04-04 10:10 | Outpatient (BNVA) | payer MEDICAID, SELFPAY | PROVIDERS: Referring Provider Specialist; Visit Provider Specialist | DX: R56.9 Unspecified convulsions (principal); Z87.891 Personal history of nicotine dependence | CPT/HCPCS: 95816 ==

== ENCOUNTER → 2021-05-31 13:44 | Outpatient (BNVA) | payer MEDICAID, SELFPAY | PROVIDERS: Visit Provider Internal Medicine Rheumatology | DX: M46.1 Sacroiliitis, not elsewhere classified (principal); M47.819 Spondylosis without myelopathy or radiculopathy, site unspecified; R76.8 Other specified abnormal immunological findings in serum; Z79.899 Other long term (current) drug therapy; Z71.89 Other specified counseling; Z87.891 Personal history of nicotine dependence | CPT/HCPCS: 99214 ==

== ENCOUNTER → 2021-09-12 12:21 | Outpatient (BNVA) | payer MEDICARE, MEDICAID, SELFPAY | PROVIDERS: Visit Provider Specialist | DX: F44.5 Conversion disorder with seizures or convulsions (principal); G43.711 Chronic migraine without aura, intractable, with status migrainosus; F43.10 Post-traumatic stress disorder, unspecified; G47.33 Obstructive sleep apnea (adult) (pediatric); M51.36 Other intervertebral disc degeneration, lumbar region; Z91.19 Patient's noncompliance with other medical treatment and regimen; F17.200 Nicotine dependence, unspecified, uncomplicated | CPT/HCPCS: 99214 ==

== ENCOUNTER → 2021-09-20 13:05 | Outpatient (BNVA) | payer MEDICARE, MEDICAID, SELFPAY | PROVIDERS: Visit Provider Anesthesiology Pain Medicine | DX: M51.16 Intervertebral disc disorders with radiculopathy, lumbar region (principal); M51.36 Other intervertebral disc degeneration, lumbar region; M47.816 Spondylosis without myelopathy or radiculopathy, lumbar region; M54.2 Cervicalgia; M46.1 Sacroiliitis, not elsewhere classified; M79.604 Pain in right leg; M79.605 Pain in left leg; F44.5 Conversion disorder with seizures or convulsions; F43.10 Post-traumatic stress disorder, unspecified; R76.8 Other specified abnormal immunological findings in serum; F17.210 Nicotine dependence, cigarettes, uncomplicated | CPT/HCPCS: 99214 ==

== ENCOUNTER → 2021-09-25 14:32 | Outpatient (BNVA) | payer MEDICARE, MEDICAID, SELFPAY | PROVIDERS: Visit Provider Anesthesiology Pain Medicine | DX: F17.210 Nicotine dependence, cigarettes, uncomplicated (principal); M47.816 Spondylosis without myelopathy or radiculopathy, lumbar region | CPT/HCPCS: 64493; 64494; 64495; J3490 ==

== ENCOUNTER → 2021-10-09 13:21 | Outpatient (BNVA) | payer MEDICARE, MEDICAID, SELFPAY | PROVIDERS: PCP Nurse Practitioner Family; Visit Provider Anesthesiology Pain Medicine | DX: F17.210 Nicotine dependence, cigarettes, uncomplicated (principal); M47.816 Spondylosis without myelopathy or radiculopathy, lumbar region | CPT/HCPCS: 64493; 64494; 64495; J3490 ==

== ENCOUNTER → 2021-10-24 09:09 | Outpatient (BNVA) | payer MEDICARE, MEDICAID, SELFPAY | PROVIDERS: PCP Nurse Practitioner Family; Visit Provider Anesthesiology Pain Medicine | DX: M51.36 Other intervertebral disc degeneration, lumbar region (principal); M51.16 Intervertebral disc disorders with radiculopathy, lumbar region; M47.816 Spondylosis without myelopathy or radiculopathy, lumbar region; M47.819 Spondylosis without myelopathy or radiculopathy, site unspecified; M54.2 Cervicalgia; M46.1 Sacroiliitis, not elsewhere classified; M79.604 Pain in right leg; M79.605 Pain in left leg; M25.541 Pain in joints of right hand; M25.542 Pain in joints of left hand; F44.5 Conversion disorder with seizures or convulsions; F43.10 Post-traumatic stress disorder, unspecified; R76.8 Other specified abnormal immunological findings in serum; M19.90 Unspecified osteoarthritis, unspecified site; F17.210 Nicotine dependence, cigarettes, uncomplicated | CPT/HCPCS: 99214 ==

== ENCOUNTER → 2022-01-28 15:04 | Outpatient (BNVA) | payer MEDICARE, MEDICAID, SELFPAY | PROVIDERS: PCP Nurse Practitioner Family; Visit Provider Internal Medicine Rheumatology | DX: Z79.899 Other long term (current) drug therapy (principal); M46.1 Sacroiliitis, not elsewhere classified; M47.819 Spondylosis without myelopathy or radiculopathy, site unspecified; Z71.89 Other specified counseling; R76.8 Other specified abnormal immunological findings in serum; M15.9 Polyosteoarthritis, unspecified; K76.0 Fatty (change of) liver, not elsewhere classified; M54.30 Sciatica, unspecified side; M94.0 Chondrocostal junction syndrome [Tietze] | CPT/HCPCS: 99214 ==

== ENCOUNTER → 2022-04-22 12:52 | Outpatient (BNVA) | payer MEDICARE, MEDICAID, SELFPAY | PROVIDERS: PCP Nurse Practitioner Family; Visit Provider Specialist | DX: G43.711 Chronic migraine without aura, intractable, with status migrainosus (principal); F43.10 Post-traumatic stress disorder, unspecified; F44.5 Conversion disorder with seizures or convulsions; G47.33 Obstructive sleep apnea (adult) (pediatric); E66.01 Morbid (severe) obesity due to excess calories; Z68.41 Body mass index [BMI] 40.0-44.9, adult; K76.0 Fatty (change of) liver, not elsewhere classified | CPT/HCPCS: 99214 ==

== ENCOUNTER → 2022-04-25 10:36 | Outpatient (BNVA) | payer MEDICARE, MEDICAID, SELFPAY | PROVIDERS: PCP Nurse Practitioner Family; Visit Provider Anesthesiology Pain Medicine | DX: M47.816 Spondylosis without myelopathy or radiculopathy, lumbar region; M51.36 Other intervertebral disc degeneration, lumbar region; M51.16 Intervertebral disc disorders with radiculopathy, lumbar region; M47.819 Spondylosis without myelopathy or radiculopathy, site unspecified; M54.2 Cervicalgia; M46.1 Sacroiliitis, not elsewhere classified; F44.5 Conversion disorder with seizures or convulsions; F43.10 Post-traumatic stress disorder, unspecified; R76.8 Other specified abnormal immunological findings in serum; M19.90 Unspecified osteoarthritis, unspecified site; M79.604 Pain in right leg; M79.605 Pain in left leg | CPT/HCPCS: 99214 ==

== ENCOUNTER → 2022-05-29 14:16 | Outpatient (BNVA) | payer MEDICARE, MEDICAID, SELFPAY | PROVIDERS: PCP Nurse Practitioner Family; Visit Provider Internal Medicine Rheumatology | DX: R76.8 Other specified abnormal immunological findings in serum (principal); Z79.899 Other long term (current) drug therapy; M47.819 Spondylosis without myelopathy or radiculopathy, site unspecified; M46.1 Sacroiliitis, not elsewhere classified; Z71.89 Other specified counseling; M15.9 Polyosteoarthritis, unspecified; K76.0 Fatty (change of) liver, not elsewhere classified; M94.0 Chondrocostal junction syndrome [Tietze]; M51.16 Intervertebral disc disorders with radiculopathy, lumbar region | CPT/HCPCS: 36415; 72040; 80076; 82565; 85025; 86140; 99214 ==

== ENCOUNTER → 2022-06-05 13:01 | Outpatient (BNVA) | payer MEDICARE, MEDICAID, SELFPAY | PROVIDERS: PCP Nurse Practitioner Family; Visit Provider Anesthesiology Pain Medicine | DX: M47.816 Spondylosis without myelopathy or radiculopathy, lumbar region (principal); E11.9 Type 2 diabetes mellitus without complications; Z79.84 Long term (current) use of oral hypoglycemic drugs | CPT/HCPCS: 36416; 64635; 64636; 82962 ==

== ENCOUNTER → 2022-06-20 10:44 | Outpatient (BNVA) | payer MEDICARE, MEDICAID, SELFPAY | PROVIDERS: PCP Nurse Practitioner Family; Visit Provider Anesthesiology Pain Medicine | DX: M51.16 Intervertebral disc disorders with radiculopathy, lumbar region (principal); M47.819 Spondylosis without myelopathy or radiculopathy, site unspecified; M51.36 Other intervertebral disc degeneration, lumbar region; M47.816 Spondylosis without myelopathy or radiculopathy, lumbar region; M46.1 Sacroiliitis, not elsewhere classified; F44.5 Conversion disorder with seizures or convulsions; F43.10 Post-traumatic stress disorder, unspecified; R76.8 Other specified abnormal immunological findings in serum; M19.90 Unspecified osteoarthritis, unspecified site | CPT/HCPCS: 99213 ==

== ENCOUNTER 2022-07-18 11:17 | Emergency (ER) | payer MEDICARE, MEDICAID, SELFPAY ==
[2022-07-18 11:27] VITALS: BP 139/86; PULSE 89; RESP 18; TEMP 36.4; O2SAT 98
[2022-07-18 14:41] VITALS: BP 126/84; PULSE 85; RESP 18; O2SAT 97
[2022-07-18 15:23] LABS: Basophils % 0.5 %; Eosinophils # 0.2 10^3/uL (0.0-0.8); Eosinophils % 2.8 %; Hematocrit 46.3 % (37.0-47.0); Hemoglobin 14.2 g/dL (11.5-15.3); Lymphocytes # 2.2 10^3/uL (0.8-4.8); Lymphocytes % 29.9 %; Mean Corpuscular HGB Conc 30.7 g/dL (30.0-36.0); Mean Corpuscular Hemoglobin 26.2 pg (28.0-34.0); Mean Corpuscular Volume 85.6 fl (81-99); Mean Platelet Volume 10.8 fL (7.4-10.4); Monocytes # 0.5 10^3/uL (0.2-0.9); Neutrophils # 4.51 10^3/uL (1.8-7.7); Neutrophils % 60.4 %; Nucleated Red Blood Cells % 0 %; Platelet Count 261 10^3/cmm (130-400); Red Blood Count 5.41 10^6/uL (4.1-5.3); Red Cell Distribution Width 14.3 % (12.1-15.1); White Blood Count 7.5 10^3/uL (4.0-10.0)
[2022-07-18 15:43] LABS: Alanine Aminotransferase 33 U/L (0-33); Albumin Level 4.4 g/dL (3.5-5.2); Alkaline Phosphatase 105 U/L (35-105); Anion Gap 18.9 (5-19); Aspartate Amino Transferase 35 U/L (0-32); Blood Urea Nitrogen 15 mg/dL (6-20); Calcium 9.8 mg/dL (8.5-10.5); Carbon Dioxide 23 mmol/L (22-29); Chloride 101 mmol/L (98-107); Glomerular Filtration Rate 90.9 mL/min (90-130); Glucose 139 mg/dL (65-115); Osmolality Calculated 291 mOsm/kg (285-295); Potassium 3.9 mmol/L (3.5-5.1); Sodium 139 mmol/L (136-145); Total Bilirubin 0.5 mg/dL (0.15-1.2); Total Protein 8.4 g/dL (6.6-8.7)
--- NOTE | 2022-07-18 16:31 | MRR_ITS ---
PROCEDURE INFORMATION: Exam: MR Thoracic Spine Without Contrast Exam date and time: 07/18/2022 5:58 PM Age: 42 years old Clinical indication: Pain in thoracic spine; Patient HX: Back pain ble pain chronic progressive with new incontinence; Additional info: Spinal stenosis TECHNIQUE: Imaging protocol: Magnetic resonance imaging of the thoracic spine without contrast. COMPARISON: MR lumbar spine wo con* [id number] 07/18/2022 5:31 PM FINDINGS: Bones/joints: There is normal marrow signal vertebrae without evidence of fracture or destructive lesion. Spinal cord: The spinal cord has a normal appearance on all sequences there is small benign-appearing hemangioma in the T2 vertebral body. T1-T2: No significant disc bulge or herniation. No severe spinal canal stenosis. No significant neural foraminal narrowing. T2-T3: No significant disc bulge or herniation. No severe spinal canal stenosis. No significant neural foraminal narrowing. T3-T4: No significant disc bulge or herniation. No severe spinal canal stenosis. No significant neural foraminal narrowing. T4-T5: No significant disc bulge or herniation. No severe spinal canal stenosis. No significant neural foraminal narrowing. T5-T6: No significant disc bulge or herniation. No severe spinal canal stenosis. No significant neural foraminal narrowing. T6-T7: No significant disc bulge or herniation. No severe spinal canal stenosis. No significant neural foraminal narrowing. T7-T8: There is some mild disc osteophyte complex and eccentric posterior bulge of the disc left side which effaces the anterior epidural space but does not cause significant cord flattening or compression. No central canal or foraminal stenosis. T8-T9: No significant disc bulge or herniation. No severe spinal canal stenosis. No significant neural foraminal narrowing. T9-T10: No significant disc bulge or herniation. No severe spinal canal stenosis. No significant neural foraminal narrowing. T10-T11: No significant disc bulge or herniation. No severe spinal canal stenosis. No significant neural foraminal narrowing. T11-T12: No significant disc bulge or herniation. No severe spinal canal stenosis. No significant neural foraminal narrowing. T12-L1: No significant disc bulge or herniation. No severe spinal canal stenosis. No significant neural foraminal narrowing. Soft tissues: Unremarkable. MR/MR thoracic spin wo con* [id number] IMPRESSION: Mild degenerative disc changes. No acute finding.
--- NOTE | 2022-07-18 16:31 | MRR_ITS ---
PROCEDURE INFORMATION: Exam: MR Lumbar Spine Without Contrast Exam date and time: 07/18/2022 5:31 PM Age: 42 years old Clinical indication: Low back pain; Prior surgery; Surgery date: 1-6 months; Surgery type: Nerves burned over two months ago; Patient HX: Back pain, ble pain, chronic, progressive w/ incontinence now; Additional info: Spinal stenosis loss of bowel control TECHNIQUE: Imaging protocol: Magnetic resonance imaging of the lumbar spine without contrast. COMPARISON: MR lumbar spine wo con* [id number] 09/20/2019 10:33 AM FINDINGS: Bones/joints: Vertebrae are intact with normal marrow signal without evidence of fracture or destructive lesion. There are mild reactive changes in the anterior aspect of the adjacent L5 and S1 endplates. Spinal cord: Tip of the conus medullaris is at L1 and is unremarkable. L1-L2: No significant disc bulge or herniation. No severe spinal canal stenosis. No significant neural foraminal narrowing. L2-L3: No significant disc bulge or herniation. No severe spinal canal stenosis. No significant neural foraminal narrowing. L3-L4: Mild hypertrophy of the ligamentum flavum unchanged without stenosis or focal disc herniation. L4-L5: Mild diffuse posterior bulging of the disc and mild midline posterior disc protrusion or bulge unchanged. No central canal or foraminal stenosis. Mild hypertrophy of the ligamentum flavum bilaterally. L5-S1: Decreased height of the disc space. Eccentric posterior bulge of the disc towards the right. Disc osteophyte complex causing mild left and moderate right foraminal narrowing not significantly changed. Soft tissues: Unremarkable. MR/MR lumbar spine wo con* [id number] IMPRESSION: Degenerative changes in the lumbar spine as described stable compared with 09/20/2019. No acute findings.
--- NOTE | 2022-07-18 16:50 | ED_ITS ---
HPI - Extremity Problem General: Chief complaint: Extremity Problem,Nontraumatic Stated complaint: numbness from waist down Time Seen by Provider: 07/18/22 16:19 Source: patient Mode of arrival: ambulatory History of Present Illness: 42-year-old female who presents with bilateral lower extremity weakness associated loss of bowel or bladder control. She states she has been sent [facility], the pain clinic for MRI i suzanne. She reports that for the past week she has been having bladder incontinence, not being aware that she needed to urinate and has spontaneous loss of bladder control. She states she is also having loss of bowel control as well in a similar fashion. She feels like the bottom of her feet are numb which is new as well. The pain is more severe in her right lumbar area. There is no significant radiation down her legs. She has been taking gabapentin and diclofenac for pain. Review of Systems General: Reports: Other (See HPI) [facility] ED PFSH: Medical History (Updated 07/18/22 @ 18:44 by Maria E Mccann MD) Anemia Depression Fibromyalgia Gastritis Inflammatory arthritis Intervertebral disc disorder with radiculopathy of lumbar region Loss of consciousness PTSD (post-traumatic stress disorder) Sacroiliitis Spondylarthritis Undifferentiated connective tissue disease Surgical History H/O esophagogastroduodenoscopy 08/02/2019: Gastric erosions History of cholecystectomy History of dilation and curettage History of tonsillectomy History of tubal ligation Family History Mother Arthritis Heart disease Stroke Father Cancer Diabetes Heart disease Kidney disease Social History Smoking and tobacco status: never smoked Quit status (tobacco): has tried quititng Alcohol intake: never Household members: children Marital status: Current occupational status: unemployed Physical Exam Const: COMMON NORMALS: patient oriented x3, no limitations and alert NUTRITIONAL APPEARANCE: obese ORIENTATION/CONSCIOUSNESS: Yes oriented to person HENMT: COMMON NORMALS: hearing grossly normal bilaterally and external ears normal EXTERNAL EAR: Yes external ears normal Eye: COMMON NORMALS: conjunctivae normal and no scleral icterus CONJUNCTIVA: Yes conjunctivae normal Neck/C-Spine: COMMON NORMALS: no JVD Resp: COMMON NORMALS: normal respiratory effort, No use of accessory muscles and clear to auscultation bilaterally AUSCULTATION: clear to auscultation bilaterally Cardio: COMMON NORMALS: no JVD, S1 normal heart sound present and S2 normal heart sound present HEART SOUNDS: S1 normal heart sound present and S2 normal heart sound present : BLADDER/KIDNEY EXAM: No CVA tenderness Back/Pelvis: GENERAL BACK: No CVA tenderness, No erythema and No warmth THORACIC SPINE/UPPER BACK: Yes normal to inspection and No thoracic spinal tenderness LUMBAR SPINE/LOWER BACK: Yes normal to inspection, Yes lumbar spinal tenderness, Yes paraspinal muscle tenderness and Yes straight leg raise positive right SACROILIAC JOINTS: Yes SI joint(s) abnormal (Tenderness at right SI joint region) Extremity: GENERAL: Yes normal exam except as noted Neuro: COMMON NORMALS: patient oriented x3, CN's II-XII intact bilaterally and moves all extremities SENSORIUM/ORIENTATION: Yes alert and Yes oriented to person SENSORY EXAM: Yes other (Decreased sensation on the bottoms of the feet bilaterally; normal perineal) DEEP TENDON REFLEXES: Right patellar reflex intensity grade: 2+, Left patellar reflex intensity grade: 2+, Right ankle reflex intensity grade: 1+ and Left ankle reflex intensity grade: 1+ Psych: COMMON NORMALS: mental status grossly normal, Normal thought process present and speech normal APPEARANCE: Yes grossly normal ATTITUDE: Yes calm ACTIVITY/MOTOR BEHAVIOR: Yes appropriate eye contact SPEECH: Yes normal speech MOOD & AFFECT: Yes depressed mood THOUGHT PROCESS: Normal thought process present THOUGHT CONTENT: Yes Normal thought content present ATTENTION/CONCENTRATION: Yes attention grossly intact MEMORY/COGNITION: Yes memory grossly intact Course ED course: Patient's had an MRI of her thoracic and lumbar spine. She has degenerative changes at multiple levels but no evidence of cauda equina or acute neurologic issues. At this time we will plan for discharge home. The patient was given a prescription today by the pain clinic for hydrocodone to take as needed. We will have her take the medication as prescribed. Vital Signs: Vital signs: Vital Signs Temperature 97.5 F L 07/18/22 11:27 Pulse Rate 80 07/18/22 17:00 Respiratory Rate 18 07/18/22 17:03 Blood Pressure 126/84 07/18/22 14:41 Pulse Oximetry 98 07/18/22 17:03 Oxygen Delivery Me thod 07/18/22 17:00 MDM - Extremity (Nontraumatic) Medical Decision Making 42-year-old female who presents with right-sided low back pain with associated reported bowel and bladder incontinence. She does have normal. Anal and perineal sensation as well as normal rectal tone. We will check a postvoid bladder residual with bladder scan. We will try to obtain an MRI of her thoracic and lumbar spine if they are able to do it today. I am going to start an IV and give her a dose of IV Dilaudid for pain as the patient is unable to lay flat at this point due to the severity of her pain. Lab Data 07/18/22 15:05 07/18/22 15:05 Radiology Impressions Lumbar Spine MRI 07/18/22 16:31 IMPRESSION: Degenerative changes in the lumbar spine as described stable compared with 09/20/2019. No acute findings. Thoracic Spine MRI 07/18/22 16:31 IMPRESSION: Mild degenerative disc changes. No acute finding. Laboratory Results WBC 7.5 10^3/uL (4.0-10.0) 07/18/22 15:05 RBC 5.41 10^6/uL (4.1-5.3) H 07/18/22 15:05 Hgb 14.2 g/dL (11.5-15.3) 07/18/22 15:05 Hct 46.3 % (37.0-47.0) 07/18/22 15:05 MCV 85.6 fl (81-99) 07/18/22 15:05 MCH 26.2 pg (28.0-34.0) L 07/18/22 15:05 MCHC 30.7 g/dL (30.0-36.0) 07/18/22 15:05 RDW 14.3 % (12.1-15.1) 07/18/22 15:05 Plt Count 261 10^3/cmm (130-400) 07/18/22 15:05 MPV 10.8 fL (7.4-10.4) H 07/18/22 15:05 Neut % (Auto) 60.4 % 07/18/22 15:05 Lymph % (Auto) 29.9 % 07/18/22 15:05 [place] % (Auto) 6.0 % 07/18/22 15:05 Eos % (Auto) 2.8 % 07/18/22 15:05 Baso % (Auto) 0.5 % 07/18/22 15:05 Neut # (Auto) 4.51 10^3/uL (1.8-7.7) 07/18/22 15:05 Lymph # (Auto) 2.2 10^3/uL (0.8-4.8) 07/18/22 15:05 [place] # (Auto) 0.5 10^3/uL (0.2-0.9) 07/18/22 15:05 Eos # (Auto) 0.2 10^3/uL (0.0-0.8) 07/18/22 15:05 Baso # (Auto) 0.0 10^3/uL (0.0-0.1) 07/18/22 15:05 Nucleated RBC % (auto) 0 % 07/18/22 15:05 Nucleated RBCs # 0.0 /100WBC 07/18/22 15:05 Sodium 139 mmol/L (136-145) 07/18/22 16:45 Potassium 4.2 mmol/L (3.5-5.1) 07/18/22 16:45 Chloride 101 mmol/L (98-107) 07/18/22 16:45 Carbon Dioxide 21 mmol/L (22-29) L 07/18/22 16:45 Anion Gap 21.2 (5-19) H 07/18/22 16:45 BUN 17 mg/dL (6-20) 07/18/22 16:45 Creatinine 0.7 mg/dL (0.5-0.9) 07/18/22 16:45 GFR Calculation 90.9 mL/min (90-130) 07/18/22 16:45 Glucose 140 mg/dL (65-115) H 07/18/22 16:45 Calculated Osmolality 292 mOsm/kg (285-295) 07/18/22 16:45 Calcium 9.7 mg/dL (8.5-10.5) 07/18/22 16:45 Total Bilirubin 0.5 mg/dL (0.15-1.2) 07/18/22 15:05 AST 35 U/L (0-32) H 07/18/22 15:05 ALT 33 U/L (0-33) 07/18/22 15:05 Alkaline Phosphatase 105 U/L (35-105) 07/18/22 15:05 Total Protein 8.4 g/dL (6.6-8.7) 07/18/22 15:05 Albumin 4.4 g/dL (3.5-5.2) 07/18/22 15:05 Globulin 4.0 g/dL (1.3-4.6) 07/18/22 15:05 Discharge Plan Discharge Patient Disposition: Home Clinical Impression: Chronic back pain Condition: Stable Prescriptions: No Action buspirone 10 mg tablet 40 mg PO BID bupivacaine (PF) 0.25 % (2.5 mg/mL) solution 1 ml Infiltration ONCE Qty: 1 0RF gabapentin 600 mg tablet 600 mg PO BID Qty: 60 3RF Cosentyx Pen (2 Pens) 150 mg/mL pen injector 150 mg SUBCUT .[id number] Qty: 2 3RF diclofenac sodium 1 % gel 4 g topical QID Qty: 100 2RF Rx Instructions: apply to affected area as needed bupivacaine (PF) 0.25 % (2.5 mg/mL) solution 3 ml intra-articular ONCE Qty: 1 0RF hydrocodone-acetaminophen 5-325 mg tablet 1 tab PO BID PRN (Reason: pain) 7 Days Qty: 14 0RF fluticasone propionate [Allergy Relief (fluticasone)] 50 mcg/actuation spray,suspension 2 spray INTRANASAL DAILY PRN (Reason: Nasal Congestion) hydroxyzine HCl 25 mg tablet 100 mg PO TID PRN (Reason: Anxiety) ropinirole 1 mg tablet 3 mg PO TID tizanidine 4 mg capsule 8 mg PO TID pantoprazole 40 mg tablet,delayed release (DR/EC) See Rx Instructions .ROUTE .COMPLEX Qty: 30 0RF Dose Instruction: Take 1 tablet by mouth once daily Rx Instructions: Take 1 tablet by mouth once daily diclofenac sodium 75 mg tablet,delayed release (DR/EC) See Rx Instructions .ROUTE .COMPLEX Qty: 30 0RF Dose Instruction: TAKE 1 TABLET BY MOUTH TWICE DAILY NEEDED FOR MODERATE TO SEVERE JOINT PAIN Rx Instructions: TAKE 1 TABLET BY MOUTH TWICE DAILY NEEDED FOR MODERATE TO SEVERE JOINT PAIN zonisamide 100 mg capsule 100 mg PO TID 90 Days Qty: 270 3RF Rx Instructions: 100 mg orally three times daily; Aimovig Autoinjector 140 mg/mL auto-injector 140 mg SUBCUT ONCE Qty: 1 5RF Rx Instructions: Inject Monthly metformin 500 mg tablet 1,000 mg PO BID simvastatin 20 mg Tablet 20 mg PO DAILY ferrous sulfate 325 mg (65 mg iron) tablet 325 mg PO DAILY Qty: 30 4RF Discharge Orders: Discharge ED (Routine); Ordered 07/18/22 Ordered By: Maria E Mccann Referrals: Courtney Fraser [Primary Care Provider] - Discharge Diet: Advance as tolerated Discharge Activity: Resume usual activity Patient Instructions: Back Pain (ED), Opioid Safety, Pain Management Activity Restrictions/Additional Instructions: Home to rest. Take the hydrocodone that you were prescribed today as needed. Continue other regular medications. Return if you have worsening weakness. Follow-up as scheduled with your pain doctor. Coding Level of Care Code ED [employer] for Andres Jarrell
[2022-07-18 17:00] VITALS: PULSE 80; RESP 18; O2SAT 94
[2022-07-18 17:03] VITALS: RESP 18; O2SAT 98
[2022-07-18] MEDS: ondansetron 2 mg/ML SDV 2 mL 4 MG IVP (17:03)
[2022-07-18] MEDS: HYDROmorphone 1 mg/mL INJ 1 mL 0.5 MG IVP (17:03)
[2022-07-18 17:31] LABS: Anion Gap 21.2 (5-19); Blood Urea Nitrogen 17 mg/dL (6-20); Calcium 9.7 mg/dL (8.5-10.5); Carbon Dioxide 21 mmol/L (22-29); Chloride 101 mmol/L (98-107); Glomerular Filtration Rate 90.9 mL/min (90-130); Glucose 140 mg/dL (65-115); Osmolality Calculated 292 mOsm/kg (285-295); Potassium 4.2 mmol/L (3.5-5.1); Sodium 139 mmol/L (136-145)
--- NOTE | 2022-07-18 18:51 | W.ED.EXTPRO ---
HPI - Extremity Problem General: Chief complaint: Extremity Problem,Nontraumatic Stated complaint: numbness from waist down Time Seen by Provider: 07/18/22 16:19 Source: patient Mode of arrival: ambulatory History of Present Illness: See previous note, duplicate note here PFSH ED PFSH: Medical History (Updated 07/18/22 @ 18:44 by Maria E Mccann MD) Anemia Depression Fibromyalgia Gastritis Inflammatory arthritis Intervertebral disc disorder with radiculopathy of lumbar region Loss of consciousness PTSD (post-traumatic stress disorder) Sacroiliitis Spondylarthritis Undifferentiated connective tissue disease Surgical History H/O esophagogastroduodenoscopy 08/02/2019: Gastric erosions History of cholecystectomy History of dilation and curettage History of tonsillectomy History of tubal ligation Family History Mother Arthritis Heart disease Stroke Father Cancer Diabetes Heart disease Kidney disease Social History Smoking and tobacco status: never smoked Quit status (tobacco): has tried quititng Alcohol intake: never Household members: children Marital status: Current occupational status: unemployed Course Reevaluation(s): Reevaluation #1: After IV Dilaudid, the patient's pain is much improved. Discussed findings with the patient. Plan for discharge home Time: 18:53 Vital Signs: Vital signs: Vital Signs Temperature 97.5 F L 07/18/22 11:27 Pulse Rate 80 07/18/22 17:00 Respiratory Rate 18 07/18/22 17:03 Blood Pressure 126/84 07/18/22 14:41 Pulse Oximetry 98 07/18/22 17:03 Oxygen Delivery Me thod 07/18/22 17:00 MDM - Extremity (Nontraumatic) Medical Decision Making Patient presents with low back pain with associated loss of bowel and bladder control. On examination, her reflexes are intact. Her rectal tone is normal. She has normal perineal sensation. She has had an MRI of her thoracic and lumbar spine today. She has some mild degenerative changes but nothing to explain her bowel and bladder incontinence issues. There is definitely no evidence of cauda equina. She was given 1 dose of Dilaudid IV in the ER with improvement of her pain. At this time, I do not find a reason for admission or further work-up and feel she stable for discharge home. She was given a prescription for hydrocodone today by her pain doctor and I have encouraged her to follow-up with them for further treatment. Discussed the results of her MRIs with her and she verbalizes understanding. Lab Data 07/18/22 15:05 07/18/22 16:45 Radiology Impressions Lumbar Spine MRI 07/18/22 16:31 IMPRESSION: Degenerative changes in the lumbar spine as described stable compared with 09/20/2019. No acute findings. Thoracic Spine MRI 07/18/22 16:31 IMPRESSION: Mild degenerative disc changes. No acute finding. Laboratory Results WBC 7.5 10^3/uL (4.0-10.0) 07/18/22 15:05 RBC 5.41 10^6/uL (4.1-5.3) H 07/18/22 15:05 Hgb 14.2 g/dL (11.5-15.3) 07/18/22 15:05 Hct 46.3 % (37.0-47.0) 07/18/22 15:05 MCV 85.6 fl (81-99) 07/18/22 15:05 MCH 26.2 pg (28.0-34.0) L 07/18/22 15:05 MCHC 30.7 g/dL (30.0-36.0) 07/18/22 15:05 RDW 14.3 % (12.1-15.1) 07/18/22 15:05 Plt Count 261 10^3/cmm (130-400) 07/18/22 15:05 MPV 10.8 fL (7.4-10.4) H 07/18/22 15:05 Neut % (Auto) 60.4 % 07/18/22 15:05 Lymph % (Auto) 29.9 % 07/18/22 15:05 [place] % (Auto) 6.0 % 07/18/22 15:05 Eos % (Auto) 2.8 % 07/18/22 15:05 Baso % (Auto) 0.5 % 07/18/22 15:05 Neut # (Auto) 4.51 10^3/uL (1.8-7.7) 07/18/22 15:05 Lymph # (Auto) 2.2 10^3/uL (0.8-4.8) 07/18/22 15:05 [place] # (Auto) 0.5 10^3/uL (0.2-0.9) 07/18/22 15:05 Eos # (Auto) 0.2 10^3/uL (0.0-0.8) 07/18/22 15:05 Baso # (Auto) 0.0 10^3/uL (0.0-0.1) 07/18/22 15:05 Nucleated RBC % (auto) 0 % 07/18/22 15:05 Nucleated RBCs # 0.0 /100WBC 07/18/22 15:05 Sodium 139 mmol/L (136-145) 07/18/22 16:45 Potassium 4.2 mmol/L (3.5-5.1) 07/18/22 16:45 Chloride 101 mmol/L (98-107) 07/18/22 16:45 Carbon Dioxide 21 mmol/L (22-29) L 07/18/22 16:45 Anion Gap 21.2 (5-19) H 07/18/22 16:45 BUN 17 mg/dL (6-20) 07/18/22 16:45 Creatinine 0.7 mg/dL (0.5-0.9) 07/18/22 16:45 GFR Calculation 90.9 mL/min (90-130) 07/18/22 16:45 Glucose 140 mg/dL (65-115) H 07/18/22 16:45 Calculated Osmolality 292 mOsm/kg (285-295) 07/18/22 16:45 Calcium 9.7 mg/dL (8.5-10.5) 07/18/22 16:45 Total Bilirubin 0.5 mg/dL (0.15-1.2) 07/18/22 15:05 AST 35 U/L (0-32) H 07/18/22 15:05 ALT 33 U/L (0-33) 07/18/22 15:05 Alkaline Phosphatase 105 U/L (35-105) 07/18/22 15:05 Total Protein 8.4 g/dL (6.6-8.7) 07/18/22 15:05 Albumin 4.4 g/dL (3.5-5.2) 07/18/22 15:05 Globulin 4.0 g/dL (1.3-4.6) 07/18/22 15:05 Discharge Plan Discharge Patient Disposition: Home Clinical Impression: Chronic back pain Condition: Stable Prescriptions: No Action buspirone 10 mg tablet 40 mg PO BID bupivacaine (PF) 0.25 % (2.5 mg/mL) solution 1 ml Infiltration ONCE Qty: 1 0RF gabapentin 600 mg tablet 600 mg PO BID Qty: 60 3RF Cosentyx Pen (2 Pens) 150 mg/mL pen injector 150 mg SUBCUT .[id number] Qty: 2 3RF diclofenac sodium 1 % gel 4 g topical QID Qty: 100 2RF Rx Instructions: apply to affected area as needed bupivacaine (PF) 0.25 % (2.5 mg/mL) solution 3 ml intra-articular ONCE Qty: 1 0RF hydrocodone-acetaminophen 5-325 mg tablet 1 tab PO BID PRN (Reason: pain) 7 Days Qty: 14 0RF fluticasone propionate [Allergy Relief (fluticasone)] 50 mcg/actuation spray,suspension 2 spray INTRANASAL DAILY PRN (Reason: Nasal Congestion) hydroxyzine HCl 25 mg tablet 100 mg PO TID PRN (Reason: Anxiety) ropinirole 1 mg tablet 3 mg PO TID tizanidine 4 mg capsule 8 mg PO TID pantoprazole 40 mg tablet,delayed release (DR/EC) See Rx Instructions .ROUTE .COMPLEX Qty: 30 0RF Dose Instruction: Take 1 tablet by mouth once daily Rx Instructions: Take 1 tablet by mouth once daily diclofenac sodium 75 mg tablet,delayed release (DR/EC) See Rx Instructions .ROUTE .COMPLEX Qty: 30 0RF Dose Instruction: TAKE 1 TABLET BY MOUTH TWICE DAILY NEEDED FOR MODERATE TO SEVERE JOINT PAIN Rx Instructions: TAKE 1 TABLET BY MOUTH TWICE DAILY NEEDED FOR MODERATE TO SEVERE JOINT PAIN zonisamide 100 mg capsule 100 mg PO TID 90 Days Qty: 270 3RF Rx Instructions: 100 mg orally three times daily; Aimovig Autoinjector 140 mg/mL auto-injector 140 mg SUBCUT ONCE Qty: 1 5RF Rx Instructions: Inject Monthly metformin 500 mg tablet 1,000 mg PO BID simvastatin 20 mg Tablet 20 mg PO DAILY ferrous sulfate 325 mg (65 mg iron) tablet 325 mg PO DAILY Qty: 30 4RF Discharge Orders: Discharge ED (Routine); Ordered 07/18/22 Ordered By: Maria E Mccann Referrals: Courtney Fraser [Primary Care Provider] - Discharge Diet: Advance as tolerated Discharge Activity: Resume usual activity Patient Instructions: Back Pain (ED), Opioid Safety, Pain Management Activity Restrictions/Additional Instructions: Home to rest. Take the hydrocodone that you were prescribed today as needed. Continue other regular medications. Return if you have worsening weakness. Follow-up as scheduled with your pain doctor. Coding Level of Care Code ED [employer] Work[employer] for Andres Jarrell
[2022-07-18 20:21] VITALS: BP 120/82; PULSE 65; O2SAT 100
== END 2022-07-18 20:22 | disposition home or self-care (01) ==
PROVIDERS: Emergency Medicine; Emergency Provider Emergency Medicine; PCP Nurse Practitioner Family
DX: M51.16 Intervertebral disc disorders with radiculopathy, lumbar region (principal); M47.816 Spondylosis without myelopathy or radiculopathy, lumbar region; M51.36 Other intervertebral disc degeneration, lumbar region; M54.2 Cervicalgia; M46.1 Sacroiliitis, not elsewhere classified; M79.604 Pain in right leg; M79.605 Pain in left leg; F44.5 Conversion disorder with seizures or convulsions; F43.10 Post-traumatic stress disorder, unspecified; R76.8 Other specified abnormal immunological findings in serum; M19.90 Unspecified osteoarthritis, unspecified site; G89.29 Other chronic pain; M54.9 Dorsalgia, unspecified; Z79.84 Long term (current) use of oral hypoglycemic drugs
CPT/HCPCS: 36415; 72146; 72148; 80048; 80053; 85025; 96374; 96375; 99215; 99284; J1170; J2405

== ENCOUNTER → 2022-08-05 09:14 | Outpatient (BNVA) | payer MEDICARE, MEDICAID, SELFPAY | PROVIDERS: PCP Nurse Practitioner Family; Visit Provider Anesthesiology Pain Medicine | DX: M51.36 Other intervertebral disc degeneration, lumbar region (principal); M51.16 Intervertebral disc disorders with radiculopathy, lumbar region; M47.816 Spondylosis without myelopathy or radiculopathy, lumbar region; M54.2 Cervicalgia; M19.90 Unspecified osteoarthritis, unspecified site; M46.1 Sacroiliitis, not elsewhere classified; R76.8 Other specified abnormal immunological findings in serum | CPT/HCPCS: 99214 ==

== ENCOUNTER → 2022-08-15 13:46 | Outpatient (BNVA) | payer MEDICARE, MEDICAID, SELFPAY | PROVIDERS: PCP Nurse Practitioner Family; Visit Provider Anesthesiology Pain Medicine | DX: M54.16 Radiculopathy, lumbar region (principal) | CPT/HCPCS: 64483; 64484; J1100; J3490 ==

== ENCOUNTER → 2022-08-28 13:33 | Outpatient (BNVA) | payer MEDICARE, MEDICAID, SELFPAY | PROVIDERS: PCP Nurse Practitioner Family; Visit Provider Internal Medicine Rheumatology | DX: M46.1 Sacroiliitis, not elsewhere classified (principal); M47.819 Spondylosis without myelopathy or radiculopathy, site unspecified; M19.90 Unspecified osteoarthritis, unspecified site; Z79.899 Other long term (current) drug therapy; Z71.89 Other specified counseling; R76.8 Other specified abnormal immunological findings in serum | CPT/HCPCS: 99214 ==

== ENCOUNTER → 2022-08-29 13:01 | Outpatient (BNVA) | payer MEDICARE, MEDICAID, SELFPAY | PROVIDERS: PCP Nurse Practitioner Family; Visit Provider Anesthesiology Pain Medicine | DX: M54.16 Radiculopathy, lumbar region (principal) | CPT/HCPCS: 64483; 64484; J1100; J3490 ==

== ENCOUNTER → 2022-09-12 09:53 | Outpatient (BNVA) | payer MEDICARE, MEDICAID, SELFPAY | PROVIDERS: PCP Nurse Practitioner Family; Visit Provider Anesthesiology Pain Medicine | DX: M51.16 Intervertebral disc disorders with radiculopathy, lumbar region (principal); M51.36 Other intervertebral disc degeneration, lumbar region; M47.816 Spondylosis without myelopathy or radiculopathy, lumbar region; M47.819 Spondylosis without myelopathy or radiculopathy, site unspecified; M54.2 Cervicalgia; M46.1 Sacroiliitis, not elsewhere classified; F44.5 Conversion disorder with seizures or convulsions; F43.10 Post-traumatic stress disorder, unspecified; R76.8 Other specified abnormal immunological findings in serum; M19.90 Unspecified osteoarthritis, unspecified site | CPT/HCPCS: 99214 ==

== ENCOUNTER 2022-10-23 12:40 | Outpatient (RCR) | payer MEDICARE, MEDICAID, SELFPAY | END 2022-11-15 23:59 | disposition home or self-care (01) | LOC: SPT 12:40 | PROVIDERS: Visit Provider Anesthesiology Pain Medicine | DX: M54.50 Low back pain, unspecified (principal); G89.29 Other chronic pain | CPT/HCPCS: 97110; 97161; 97530 ==

== ENCOUNTER 2022-11-16 06:00 | Outpatient (RCR) | payer MEDICARE, MEDICAID, SELFPAY | END 2022-12-16 23:59 | disposition home or self-care (01) | LOC: SPT 06:00 | PROVIDERS: Visit Provider Anesthesiology Pain Medicine | DX: M54.50 Low back pain, unspecified (principal); G89.29 Other chronic pain | CPT/HCPCS: 97110; 97530 ==

== ENCOUNTER → 2022-12-04 13:11 | Outpatient (BNVA) | payer MEDICARE, MEDICAID, SELFPAY | PROVIDERS: PCP Nurse Practitioner Family; Visit Provider Internal Medicine Rheumatology | DX: M19.90 Unspecified osteoarthritis, unspecified site (principal); Z79.899 Other long term (current) drug therapy; M46.1 Sacroiliitis, not elsewhere classified; M47.819 Spondylosis without myelopathy or radiculopathy, site unspecified; Z71.89 Other specified counseling; R76.8 Other specified abnormal immunological findings in serum; M94.0 Chondrocostal junction syndrome [Tietze] | CPT/HCPCS: 36415; 80076; 82565; 85025; 86140; 99214 ==

== ENCOUNTER 2022-12-17 06:00 | Outpatient (RCR) | payer MEDICARE, MEDICAID, SELFPAY | END 2023-01-16 23:59 | disposition home or self-care (01) | LOC: SPT 06:00 | PROVIDERS: PCP Nurse Practitioner Family; Visit Provider Anesthesiology Pain Medicine | DX: M54.50 Low back pain, unspecified (principal); G89.29 Other chronic pain | CPT/HCPCS: 97110 ==

== ENCOUNTER → 2023-01-03 14:45 | Outpatient (BNVA) | payer MEDICARE, MEDICAID, SELFPAY | PROVIDERS: PCP Nurse Practitioner Family; Visit Provider Specialist | DX: G43.711 Chronic migraine without aura, intractable, with status migrainosus (principal); R56.9 Unspecified convulsions; N95.1 Menopausal and female climacteric states | CPT/HCPCS: 99215 ==

== ENCOUNTER 2023-01-31 09:09 | Outpatient (CLI) | payer MEDICARE, MEDICAID, SELFPAY ==
--- NOTE | 2023-01-31 09:30 | MR_ITS ---
WS: [id number] MRI HEAD WITHOUT CONTRAST TECHNIQUE: Sagittal T1, T2 axial, T2 axial FLAIR, axial and coronal T1 images, axial susceptibility w eighted imaging, axial diffusion weighted images, and coronal T2 images were obtained. CLINICAL INFORMATION: G43.711 - Chronic migraine without aura, intractable, wit... COMPARISON: CT 03/01/2021 and MRI 2019 FINDINGS: No evidence of restricted diffusion to suggest acute ischemia. Ventricular system and basal cisterns are patent. No suspicious intracranial signal normalities. Normal isidro-white differentiation. Normal posterior fossa. Normal vascular flow voids at the skull base. No extra-axial fluid collections. Para nasal sinuses are well aerated. Mastoid air cells are well aerated. Normal posterior nasopharynx. Nor mal parapharyngeal fat. No hemosiderin on the susceptibility weighted images. Normal optic chiasm and pituitary infundibulum. Temporal lobes and hippocampal formations are normal in appearance. IMPRESSION: 1. No evidence of restricted diffusion to suggest acute ischemia. 2. No suspicious intracranial signal normalities. 3. No hemosiderin on susceptibility-weighted images. 4. Temporal lobes and hippocampal formations are normal in appearance. 5. Normal optic chiasm. 6. Paranasal sinuses and mastoid air cells are well aerated.
== END 2023-01-31 09:10 | disposition home or self-care (01) ==
LOC: RAD 09:11
PROVIDERS: PCP Nurse Practitioner Family; Visit Provider Specialist
DX: G43.711 Chronic migraine without aura, intractable, with status migrainosus (principal); R56.9 Unspecified convulsions
CPT/HCPCS: 70551

== ENCOUNTER → 2023-03-10 09:51 | Outpatient (BNVA) | payer MEDICARE, MEDICAID, SELFPAY | PROVIDERS: PCP Nurse Practitioner Family; Visit Provider Specialist | DX: R56.9 Unspecified convulsions (principal); G43.711 Chronic migraine without aura, intractable, with status migrainosus; M51.36 Other intervertebral disc degeneration, lumbar region | CPT/HCPCS: 99214 ==

== ENCOUNTER → 2023-04-30 12:49 | Outpatient (BNVA) | payer MEDICARE, MEDICAID, SELFPAY | PROVIDERS: PCP Nurse Practitioner Family; Visit Provider Specialist | DX: G40.909 Epilepsy, unspecified, not intractable, without status epilepticus (principal); M46.1 Sacroiliitis, not elsewhere classified; M70.61 Trochanteric bursitis, right hip; M70.62 Trochanteric bursitis, left hip; F43.10 Post-traumatic stress disorder, unspecified; G43.711 Chronic migraine without aura, intractable, with status migrainosus | CPT/HCPCS: 99215; J1030; J3490 ==

== ENCOUNTER → 2023-05-20 08:38 | Outpatient (BNVA) | payer MEDICARE, MEDICAID, SELFPAY | PROVIDERS: PCP Nurse Practitioner Family; Referring Provider Specialist; Visit Provider Internal Medicine | DX: E78.2 Mixed hyperlipidemia; E11.40 Type 2 diabetes mellitus with diabetic neuropathy, unspecified; E11.65 Type 2 diabetes mellitus with hyperglycemia; Z79.84 Long term (current) use of oral hypoglycemic drugs; Z79.4 Long term (current) use of insulin | CPT/HCPCS: 99204 ==

== ENCOUNTER 2023-06-10 17:09 | Outpatient (CLI) | payer MEDICARE, MEDICAID, SELFPAY ==
--- NOTE | 2023-06-10 17:00 | CT_ITS ---
WS: [id number] CT ABDOMEN WITH CONTRAST HISTORY: splenomegaly and pancreatic enlargement Contiguous single phase 5 mm axial imaging performed to the abdomen. Oral contrast has been provided. Coronal and sagittal reformats are submitted. All CT scans at [facility] use at least one of these dose optimization techniques: automated exposure control; mA and/or kV adjustment per patient size (includes targeted exams where dose is matched to clinical indication); or iterative reconstruct ion. IV CONTRAST: Omnipaque 350; 100 mL IV. Oral contrast: Yes. DLP: 757.79 mGy.cm COMPARISON: 04/30/2019 Lower thorax: Lung bases are clear. Heart is normal size. No hiatal hernia. Liver/biliary system: Moderately enlarged liver extending over a length of 20.2 cm. There is low-atte nuation from hepatic steatosis. No mass or bile duct dilatation. Normal portal vein. Gallbladder: Status post cholecystectomy. Pancreas: Normal size pancreas and pancreatic duct. No adjacent inflammation. Spleen: Normal size spleen. No mass or infarct. Adrenal glands: Normal. Right kidney: Normal. Left kidney: Normal. Aorta: Normal. Lymphadenopathy: None. Free fluid: None. GI tract: As visualized through the abdomen normal. No obstructive pattern. Abdominal wall: Small umbilical hernia is incompletely included on this examination through the abdom en only. Visualized osseous structures: Unremarkable. IMPRESSION: 1. Moderate hepatic steatosis and hepatomegaly. 2. No bile duct dilatation. 3. Prior cholecystectomy. 4. Normal spleen. 5. Normal pancreas.
[2023-06-10] MEDS: iohexol 350 mg/mL 500 mL Btl (per mL) PO (17:26)
[2023-06-10] MEDS: iohexol 350 mg/mL 500 mL Btl (per mL) IV (17:39)
== END 2023-06-10 17:10 | disposition home or self-care (01) ==
LOC: RAD 17:09
PROVIDERS: PCP Nurse Practitioner Family; Visit Provider Internal Medicine
DX: R16.1 Splenomegaly, not elsewhere classified (principal); K86.9 Disease of pancreas, unspecified; K76.0 Fatty (change of) liver, not elsewhere classified; R16.0 Hepatomegaly, not elsewhere classified; E11.9 Type 2 diabetes mellitus without complications; Z90.49 Acquired absence of other specified parts of digestive tract
CPT/HCPCS: 74160; Q9967

== ENCOUNTER → 2023-06-12 15:40 | Outpatient (BNVA) | payer OTHER, MEDICAID, SELFPAY | PROVIDERS: PCP Nurse Practitioner Family; Visit Provider Specialist | DX: M46.1 Sacroiliitis, not elsewhere classified (principal); M70.61 Trochanteric bursitis, right hip; M70.62 Trochanteric bursitis, left hip; G43.711 Chronic migraine without aura, intractable, with status migrainosus | CPT/HCPCS: 20610; 27096; 99212; J1030; J3490 ==

== ENCOUNTER 2023-07-01 07:49 | Outpatient (CLI) | payer OTHER, MEDICAID, SELFPAY ==
[2023-07-01 08:32] LABS: Alanine Aminotransferase 30 U/L (0-33); Albumin Level 3.9 g/dL (3.5-5.2); Alkaline Phosphatase 95 U/L (35-105); Anion Gap 14.9 (5-19); Aspartate Amino Transferase 22 U/L (0-32); Blood Urea Nitrogen 15 mg/dL (6-20); Calcium 9.3 mg/dL (8.5-10.5); Carbon Dioxide 24 mmol/L (22-29); Chloride 103 mmol/L (98-107); Chol HDL Ratio 4.47 mg/dL (0.0-4.40); Cholesterol 170 mg/dL (0-200); Globulin 3.7 g/dL (1.3-4.6); Glomerular Filtration Rate 108.1 mL/min (90-130); Glucose 198 mg/dL (65-115); HDL Cholesterol 38 mg/dL (60-100); LDL Cholesterol Calculated 97 mg/dL (50-129); LDL HDL Ratio 2.55 RATIO (0.00-3.22); Lipase 39 U/L (13-60); Osmolality Calculated 292 mOsm/kg (285-295); Potassium 3.9 mmol/L (3.5-5.1); Sodium 138 mmol/L (136-145); Total Bilirubin 0.3 mg/dL (0.15-1.2); Total Protein 7.6 g/dL (6.6-8.7); Triglycerides 176 mg/dL (0-150)
[2023-07-01 08:35] LABS: Creatinine Urine, Random 229 mg/dL (28-217); Microalbum Creatinine Ratio Ur 22 mg/dL (0-20); Microalbumin Random Urine 5 ug/dL (0-20)
[2023-07-03 09:18] LABS: Estmated Average Glucose 209; Hemoglobin A1C 8.9 % (4.0-6.0)
== END 2023-07-01 07:50 | disposition home or self-care (01) ==
LOC: LAB 07:49
PROVIDERS: PCP Nurse Practitioner Family; Visit Provider Internal Medicine
DX: E11.9 Type 2 diabetes mellitus without complications (principal); E78.2 Mixed hyperlipidemia; Z79.4 Long term (current) use of insulin; Z79.84 Long term (current) use of oral hypoglycemic drugs
CPT/HCPCS: 36415; 80053; 80061; 82044; 83036; 83690; 99214

== ENCOUNTER → 2023-07-17 14:50 | Outpatient (BNVA) | payer OTHER, MEDICAID, SELFPAY | PROVIDERS: PCP Nurse Practitioner Family; Visit Provider Internal Medicine Rheumatology | DX: Z79.899 Other long term (current) drug therapy (principal); M19.90 Unspecified osteoarthritis, unspecified site; M46.1 Sacroiliitis, not elsewhere classified; M47.819 Spondylosis without myelopathy or radiculopathy, site unspecified; Z71.89 Other specified counseling; R76.8 Other specified abnormal immunological findings in serum | CPT/HCPCS: 99214 ==

== ENCOUNTER → 2023-08-06 10:16 | Outpatient (BNVA) | payer OTHER, MEDICAID, SELFPAY | PROVIDERS: PCP Nurse Practitioner Family; Visit Provider Specialist | DX: M46.1 Sacroiliitis, not elsewhere classified (principal); M70.61 Trochanteric bursitis, right hip; M70.62 Trochanteric bursitis, left hip; M79.7 Fibromyalgia | CPT/HCPCS: 27096; 99213; J1030; J3490 ==

== ENCOUNTER → 2023-08-18 11:25 | Outpatient (BNVA) | payer OTHER, MEDICAID, SELFPAY | PROVIDERS: PCP Nurse Practitioner Family; Visit Provider Anesthesiology Pain Medicine | DX: G89.29 Other chronic pain; M16.9 Osteoarthritis of hip, unspecified; M25.551 Pain in right hip; M25.552 Pain in left hip; M51.16 Intervertebral disc disorders with radiculopathy, lumbar region; M47.816 Spondylosis without myelopathy or radiculopathy, lumbar region; M51.36 Other intervertebral disc degeneration, lumbar region; M54.2 Cervicalgia; M46.1 Sacroiliitis, not elsewhere classified; F44.5 Conversion disorder with seizures or convulsions; F43.10 Post-traumatic stress disorder, unspecified; R76.8 Other specified abnormal immunological findings in serum; M19.90 Unspecified osteoarthritis, unspecified site | CPT/HCPCS: 73521; 73522; 99214 ==

== ENCOUNTER → 2023-08-20 08:54 | Outpatient (BNVA) | payer OTHER, MEDICAID, SELFPAY | PROVIDERS: PCP Nurse Practitioner Family; Visit Provider Internal Medicine | DX: E11.9 Type 2 diabetes mellitus without complications (principal); E78.2 Mixed hyperlipidemia; Z79.4 Long term (current) use of insulin; Z79.84 Long term (current) use of oral hypoglycemic drugs; Z79.85 Long-term (current) use of injectable non-insulin antidiabetic drugs | CPT/HCPCS: 36415; 80053; 80061; 82044; 83036; 83690; 99214 ==

== ENCOUNTER 2023-08-25 13:11 | Emergency (ER) | payer OTHER, MEDICAID, SELFPAY ==
[2023-08-25 13:20] VITALS: BP 142/91; PULSE 103; RESP 16; TEMP 36.9; O2SAT 96; BMI 43.7
[2023-08-25 14:38] LABS: Basophils # 0.1 10^3/uL (0.0-0.1); Basophils % 0.6 %; Eosinophils # 0.2 10^3/uL (0.0-0.8); Eosinophils % 2.1 %; Hematocrit 45.2 % (36-47); Lymphocytes # 2.8 10^3/uL (0.8-4.8); Lymphocytes % 28.2 %; Mean Corpuscular HGB Conc 31.6 g/dL (30-55); Mean Corpuscular Hemoglobin 28.5 pg (27-33); Mean Corpuscular Volume 90.2 fl (85-98); Mean Platelet Volume 10.1 fL (7.4-10.4); Monocytes # 0.5 10^3/uL (0.2-0.9); Monocytes % 5.3 %; Neutrophils # 6.25 10^3/uL (1.8-7.7); Neutrophils % 63.6 %; Nucleated Red Blood Cells % 0 %; Platelet Count 257 10^3/cmm (157-399); Red Blood Count 5.01 10^6/uL (3.85-5.65); Red Cell Distribution Width 14.7 % (12.1-15.1); White Blood Count 9.83 10^3/uL (3.29-11.43)
--- NOTE | 2023-08-25 14:52 | CT_ITS ---
WS: [id number] CT ABDOMEN AND PELVIS WITH CONTRAST HISTORY: abd pain TECHNIQUE: Imaging performed of the abdomen and pelvis with IV contrast. Single phase imaging of the abdomen. Coronal and sagittal reformats are submitted. All CT scans at [facility] use at [address] one of these dose optimization techniques: automated exposure control; mA and/or kV adjustment per patient size (includes targeted exams where dose is matched to clinical indication); or iterative re construction. IV CONTRAST: Omnipaque 350; 100 mL IV. Oral contrast: No DLP: 1330.89 mGy.cm COMPARISON: 06/10/2023, 04/30/2019 Lower thorax: Lung bases are clear. Heart is normal size. No hiatal hernia. Liver/biliary system: Mild hepatic steatosis and hepatomegaly. Gallbladder: Status post cholecystectomy. Pancreas: Normal size pancreas and pancreatic duct. No adjacent inflammation. Spleen: Normal size spleen. No mass or infarct. Adrenal glands: Normal. Right kidney: Normal. Left kidney: Normal. Aorta: Normal. Lymphadenopathy: None. Free fluid: None. GI tract: Negative stomach. No small bowel obstruction. Moderate diffuse constipation. Numerous diver ticula beginning in the descending to the sigmoid colon. No acute diverticulitis identified. Abdominal wall: Fat containing umbilical hernia. Pelvis: No free fluid or adenopathy within the pelvis. Bones: Unremarkable. IMPRESSION: 1. No acute abdominal or pelvic abnormalities. 2. No pancreatitis. 3. Prior cholecystectomy. 4. Mild hepatomegaly. Mild hepatic steatosis. 5. Distal colon diverticulosis without acute diverticulitis. 6. No ascites or adenopathy.
[2023-08-25 14:58] LABS: Alanine Aminotransferase 29 U/L (0-33); Albumin Level 4.2 g/dL (3.5-5.2); Alkaline Phosphatase 97 U/L (35-105); Anion Gap 14.4 (5-19); Aspartate Amino Transferase 20 U/L (0-32); Blood Urea Nitrogen 16 mg/dL (6-20); Calcium 9.6 mg/dL (8.5-10.5); Carbon Dioxide 27 mmol/L (22-29); Chloride 106 mmol/L (98-107); Creatinine Clr Calc Pharmacy 102.0815; Globulin 3.4 g/dL (1.3-4.6); Glomerular Filtration Rate 67.7 mL/min (90-130); Glucose 137 mg/dL (65-115); Lipase 24 U/L (13-60); Osmolality Calculated 299 mOsm/kg (285-295); Potassium 4.4 mmol/L (3.5-5.1); Sodium 143 mmol/L (136-145); Total Bilirubin 0.4 mg/dL (0.15-1.2); Total Protein 7.6 g/dL (6.6-8.7)
[2023-08-25] MEDS: iohexol 350 mg/mL 500 mL Btl (per mL) IV (15:01)
--- NOTE | 2023-08-25 15:01 | ED_ITS ---
HPI - Abdominal Pain 2 General: Chief Complaint: Abdominal Pain Stated Complaint: abd pains Time Seen by Provider: 08/25/23 14:31 Source: patient Mode of arrival: ambulatory Limitations: no limitations History of Present Illness: 43-year-old female states she has been h aving abdominal pain for the last 3 to 4 weeks states her pain has been diffuse in nature denies any worse improved factors states she seen her PCP is supposed to see general surgeon but they have not referred her. States the pain has been worse today and diffuse rates it a 6 out of 10 she had some nausea denies any fevers Associated Symptoms: Reports nausea; Denies chills, diarrhea, dysuria, fever(s) and vomiting Review of Systems 2 Const: Denies: fever(s), chills, body aches or change in appetite Eyes: Denies: blurry vision or eye discomfort ENMT: Denies: throat pain or dental pain Card: Denies: chest pain Resp: Denies: dyspnea GI: Reports: abdominal pain and nausea; Denies: vomiting or diarrhea : Denies: dysuria Musc: Denies: neck pain or back pain Skin/Breast: Denies: rash Neuro: Denies: headache(s) PFSH ED 2 PFSH: Medical History (Updated 08/25/23 @ 15:31 by Coretta Cortez MD) Loss of consciousness Anemia Depression PTSD (post-traumatic stress disorder) Intervertebral disc disorder with radiculopathy of lumbar region Gastritis Fibromyalgia Undifferentiated connective tissue disease Inflammatory arthritis Sacroiliitis Spondylarthritis Surgical History H/O esophagogastroduodenoscopy 08/02/2019: Gastric erosions History of dilation and curettage History of tubal ligation History of tonsillectomy History of cholecystectomy Family History Mother Arthritis Heart disease Stroke Father Cancer Diabetes Heart disease Kidney disease Social History Smoking and tobacco/nicotine status: never used tobacco/nicotine Quit status (tobacco/nicotine): has tried quititng Alcohol intake: never Substance/Drug Use: never Household members: children Marital status: Current occupational status: unemployed Physical Exam 2 Const: COMMON NORMALS: no acute distress, patient oriented x3 and healthy appearing HENMT: COMMON NORMALS: normocephalic and atraumatic HEAD & SCALP: n ormocephalic and atraumatic Eye: COMMON NORMALS: conjunctivae normal CONJUNCTIVA: Yes conjunctivae normal Neck/C-Spine: COMMON NORMALS: full ROM and supple Chest: COMMONS NORMALS: normal inspection of the chest Resp: COMMON NORMALS: normal respiratory effort Cardio: COMMON NORMALS: regular rate, regular rhythm and No murmurs present (Cardio) RATE: regular rate RHYTHM: regular rhythm GI: COMMON NORMALS: Normal to inspection, nondistended, normoactive bowel sounds present, Soft to palpation and no masses PALPATION: Yes Soft to palpation OTHER: diffuse mild tenderness Extremity: COMMON NORMALS: normal to inspection and full ROM Neuro: COMMON NORMALS: patient oriented x3, moves all extremities and no focal motor deficits Psych: COMMON NORMALS: mental status grossly normal, Normal thought process present and cooperative THOUGHT PROCESS: Normal thought process present Skin: COMMON NORMALS: no rashes or lesions noted and no wounds GENERAL SKIN EXAM: no rashes or lesions noted Course 2 Vital Signs: Vital signs: Vital Signs Temperature 98.4 F 08/25/23 13:20 Pulse Rate 86 08/25/23 15:38 Respiratory Rate 16 08/25/23 15:38 Blood Pressure 118/86 08/25/23 15:38 Pulse Oximetry 99 08/25/23 15:38 Oxygen Delivery Me thod Room Air 08/25/23 13:20 MDM - Abdominal Pain Medical Decision Making Patient presents here with abdominal pain going on for weeks her exam here is benign CT blood works normal we will get her referral to surgery she is return if worsening will place her on Bentyl and Zofran. Medical Records I reviewed the patient's medical records. Lab Data I reviewed the patient's lab results. 08/25/23 14:26 08/25/23 14:26 Labs/Radiology: Laboratory Results WBC 9.83 10^3/uL (3.29-11.43) 08/25/23 14:26 RBC 5.01 10^6/uL (3.85-5.65) 08/25/23 14:26 Hgb 14.30 g/dL (11.27-16.99) 08/25/23 14:26 Hct 45.2 % (36-47) 08/25/23 14:26 MCV 90.2 fl (85-98) 08/25/23 14:26 MCH 28.5 pg (27-33) 08/25/23 14:26 MCHC 31.6 g/dL (30-55) 08/25/23 14:26 RDW 14.7 % (12.1-15.1) 08/25/23 14:26 Plt Count 257 10^3/cmm (157-399) 08/25/23 14:26 MPV 10.1 fL (7.4-10.4) 08/25/23 14:26 Neut % (Auto) 63.6 % 08/25/23 14:26 Lymph % (Auto) 28.2 % 08/25/23 14:26 Motley % (Auto) 5.3 % 08/25/23 14:26 Eos % (Auto) 2.1 % 08/25/23 14:26 Baso % (Auto) 0.6 % 08/25/23 14:26 Neut # (Auto) 6.25 10^3/uL (1.8-7.7) 08/25/23 14:26 Lymph # (Auto) 2.8 10^3/uL (0.8-4.8) 08/25/23 14:26 Motley # (Auto) 0.5 10^3/uL (0.2-0.9) 08/25/23 14:26 Eos # (Auto) 0.2 10^3/uL (0.0-0.8) 08/25/23 14:26 Baso # (Auto) 0.1 10^3/uL (0.0-0.1) 08/25/23 14:26 Nucleated RBC % (auto) 0 % 08/25/23 14: Nucleated RBCs # 0.0 /100WBC 08/25/23 14:26 Sodium 143 mmol/L (136-145) 08/25/23 14:26 Potassium 4.4 mmol/L (3.5-5.1) 08/25/23 14:26 Chloride 106 mmol/L (98-107) 08/25/23 14:26 Carbon Dioxide 27 mmol/L (22-29) 08/25/23 14:26 Anion Gap 14.4 (5-19) 08/25/23 14:26 BUN 16 mg/dL (6-20) 08/25/23 14:26 Creatinine 0.9 mg/dL (0.5-0.9) 08/25/23 14:26 GFR Calculation 67.7 mL/min (90-130) L 08/25/23 14:26 Glucose 137 mg/dL (65-115) H 08/25/23 14:26 Calculated Osmolality 299 mOsm/kg (285-295) H 08/25/23 14:26 Calcium 9.6 mg/dL (8.5-10.5) 08/25/23 14:26 Total Bilirubin 0.4 mg/dL (0.15-1.2) 08/25/23 14:26 AST 20 U/L (0-32) 08/25/23 14:26 ALT 29 U/L (0-33) 08/25/23 14:26 Alkaline Phosphatase 97 U/L (35-105) 08/25/23 14:26 Total Protein 7.6 g/dL (6.6-8.7) 08/25/23 14:26 Albumin 4.2 g/dL (3.5-5.2) 08/25/23 14:26 Globulin 3.4 g/dL (1.3-4.6) 08/25/23 14:26 Lipase 24 U/L (13-60) 08/25/23 14:26 Urine Color Yellow (Yellow) 08/25/23 14:43 Urine Appearance Hazy (CLEAR) A 08/25/23 14:43 Urine pH 5 (5-7) 08/25/23 14:43 Ur Specific Flippin 1.025 (1.005-1.030) 08/25/23 14:43 Urine Protein Trace (Negative) 08/25/23 14:43 Urine Glucose (UA) 4+ (Normal) H 08/25/23 14:43 Urine Ketones 1+ (Negative) H 08/25/23 14:43 Urine Blood Neg (Negative) 08/25/23 14:43 Urine Nitrate Negative (Negative) 08/25/23 14:43 Urine Bilirubin 1+ (Negative) H 08/25/23 14:43 Urine Urobilinogen 1 mg/dL (Negative) H 08/25/23 14:43 Ur Leukocyte Esterase Trace (Negative) H 08/25/23 14:43 Urine RBC 0-4 /hpf (0-2) H 08/25/23 14:43 Urine WBC 10-15 /hpf (0-5) H 08/25/23 14:43 Ur Squamous Epith Cells 15-25 /hpf (0-5) H 08/25/23 14:43 Amorphous Sediment Not Reportable 08/25/23 14:43 Urine Bacteria 1+ /hpf (NONE) H 08/25/23 14:43 Urine Mucus 1+ /hpf 08/25/23 14:43 All radiology interpretation(s) finalized by discharge Discharge Plan Discharge Patient Disposition: Home Clinical Impression: Abdominal pain Qualifiers: Abdominal location: unspecified location Qualified Code(s): R10.9 - Unspecified abdominal pain Condition: Stable Prescriptions: New ondansetron 4 mg tablet,disintegrating 4 mg PO Q6H PRN (Reason: nausea and vomiting) Qty: 14 0RF dicyclomine 20 mg tablet 20 mg PO TID PRN (Reason: abdominal pain) Qty: 20 0RF No Action buspirone 10 mg tablet 30 mg PO BID (DME) Dexcom G7 Sterile Processing Technologist Misc See Rx Instructions .Route Qty: 1 0RF Rx Instructions: As directed atorvastatin 20 mg tablet 20 mg PO BEDTIME esomeprazole magnesium 40 mg capsule,delayed release(DR/EC) 40 mg PO QAM gabapentin 600 mg tablet 600 mg PO BID Qty: 60 3RF tramadol 50 mg tablet 50 mg PO BID PRN (Reason: pain) Qty: 60 0RF Cosentyx Pen (2 Pens) 150 mg/mL pen injector See Rx Instructions .ROUTE .COMPLEX Qty: 2 5RF Dose Instruction: Inject 150mg subcutaneously EVERY TWO WEEKS Rx Instructions: Inject 150mg subcutaneously EVERY TWO WEEKS citalopram 40 mg tablet 40 mg PO BEDTIME Patient Comments: Have been on this medication for years sucralfate 1 gram tablet 1 g PO QID zonisamide 100 mg capsule 100 mg PO TID 90 Days Qty: 270 3RF fluticasone propionate [Allergy Relief (fluticasone)] 50 mcg/actuation spray,suspension 2 spray INTRANASAL DAILY PRN (Reason: Allergy Symptoms) hydroxyzine HCl 25 mg tablet 100 mg PO TID PRN (Reason: Anxiety) ropinirole 1 mg tablet 3 mg PO BEDTIME Mounjaro 5 mg/0.5 mL pen injector 5 mg SUBCUT Q7D 30 Days Qty: 2 0RF Rx Instructions: 5mg weekly x one month-on hold 08/25/23 Mounjaro 7.5 mg/0.5 mL pen injector 7.5 mg SUBCUT Q7D Qty: 2 1RF Rx Instructions: 7.5mg weekly-on hold Aimovig Autoinjector 140 mg/mL auto-injector See Rx Instructions .ROUTE .COMPLEX Qty: 4 0RF Dose Instruction: Inject 140mg subcutaneously ONCE EVERY MONTH as directed Rx Instructions: Inject 140mg subcutaneously ONCE EVERY MONTH as directed (DME) pen needle, diabetic [BD Sandie 2nd Gen Pen Needle] 32 gauge x 5/32 needle See Rx Instructions .ROUTE .COMPLEX Qty: 100 0RF Dose Instruction: USE DIRECTED Rx Instructions: USE DIRECTED Mounjaro 2.5 mg/0.5 mL pen injector See Rx Instructions .ROUTE .COMPLEX Qty: 4 0RF Dose Instruction: INJECT 2.5 MG (0.5 ML) SUBCUTANEOUSLY EVERY 7 DAYS FOR 1 MONTH Rx Instructions: INJECT 2.5 MG (0.5 ML) SUBCUTANEOUSLY EVERY 7 DAYS FOR 1 MONTH (DME) Dexcom G7 Sensor Device See Rx Instructions .Route Qty: 9 1RF Rx Instructions: As directed metformin 500 mg tablet 1,000 mg PO BID ibuprofen 800 mg tablet 800 mg PO TID PRN (Reason: Pain) tizanidine 4 mg tablet 4 mg PO BEDTIME Rx Instructions: may take two extra tabs during the day prn cholecalciferol (vitamin D3) 1,250 mcg (50,000 unit) capsule 50,000 unit PO Q7D Rx Instructions: on friday dapagliflozin propanediol [Farxiga] 10 mg tablet 10 mg PO BEDTIME diclofenac sodium 75 mg tablet,delayed release (DR/EC) 75 mg PO BID Aspir-81 81 mg Tablet,Delayed Release (Dr/Ec) 81 mg PO BEDTIME Vitamin C 500 mg Tablet 500 mg PO BEDTIME albuterol sulfate 90 mcg/actuation HFA aerosol inhaler 2 puff INHALATION Q4H PRN (Reason: Shortness Of Breath) Miralax 17 gram Powder In Packet 17 g PO TID prednisone 5 mg tablet 5 mg PO BID PRN (Reason: flare ups) ferrous sulfate 325 mg (65 mg iron) tablet 325 mg PO BEDTIME Humalog KwikPen Insulin 100 unit/mL insulin pen See Rx Instructions .ROUTE .COMPLEX Rx Instructions: sliding scale tid Lantus Solostar U-100 Insulin 100 unit/mL (3 mL) insulin pen 30 unit SUBCUT BEDTIME diclofenac sodium 1 % gel 4 g topical QID PRN (Reason: Pain) Rx Instructions: apply to affected area as needed Discharge Orders: Discharge ED (Routine); Ordered 08/25/23 Ordered By: Coretta Cortez Referrals: Jeff Rowe DO [Physician] - 1-3 days Courtney Fraser [Primary Care Provider] - Discharge Diet: Advance as tolerated Discharge Activity: Resume usual activity Patient Instructions: Abdominal Pain (ED) Coding Level of Care Code ED Dried Fruit Washer for Andres Jarrell
[2023-08-25 15:02] LABS: Blood Urine Neg (Negative); Glucose Urine UA 4+ (Normal); Ketones Urine 1+ (Negative); Protein Urine Trace (Negative); Specific Gravity, Urine 1.025 (1.005-1.030); Urine Appearance Hazy (CLEAR); Urine Color Yellow (Yellow); pH Urine 5 (5-7)
[2023-08-25 15:03] LABS: Add Urine Microscopic? YES; Bacteria Urine 1+ /hpf; Bilirubin Urine 1+ (Negative); Leukocyte Esterase Urine Trace (Negative); Mucus Urine 1+ /hpf; Nitrate Urine Negative (Negative); RBC Urine 0-4 /hpf (0-2); Squamous Epithelial Cell Urine 15-25 /hpf (0-5); Urobilinogen Urine 1 mg/dL (Negative)
[2023-08-25 15:04] LABS: Add Urine Culture? No
[2023-08-25 15:38] VITALS: BP 118/86; PULSE 86; RESP 16; O2SAT 99
--- NOTE | 2023-08-25 15:39 | PC.PHAR ---
Addendum entered by Yaima Cho 08/25/23 15:40: pt states gives her 4 steroid injections a month but states they are suppose to be going on hold for a month Original Note: pt states she and her daughter take care of her medications but states she can verify her medications-notes are made in the pharmacy comments
[2023-08-25] MEDS: metoclopramide 5 mg/mL SDV 2 mL 10 MG IVP (15:40)
[2023-08-25] MEDS: diphenhydrAMINE 50 mg/mL SDV 1mL IVP (15:42)
[2023-08-25 16:21] VITALS: BP 131/75; PULSE 81; O2SAT 100
--- NOTE | 2023-08-26 15:18 | PICC.NOTE ---
General Surgery Referral to general surgery at this time. Clinic to contact patient with appt date/time.
== END 2023-08-25 16:23 | disposition home or self-care (01) ==
PROVIDERS: Emergency Provider Emergency Medicine; PCP Nurse Practitioner Family
DX: R10.9 Unspecified abdominal pain (principal); Z79.82 Long term (current) use of aspirin; Z79.84 Long term (current) use of oral hypoglycemic drugs; Z79.4 Long term (current) use of insulin
CPT/HCPCS: 36415; 74177; 80053; 81001; 83690; 85025; 96374; 96375; 99285; J1200; J2765; Q9967

== ENCOUNTER → 2023-09-18 08:13 | Outpatient (BNVA) | payer OTHER, MEDICAID, SELFPAY | PROVIDERS: PCP Nurse Practitioner Family; Visit Provider Specialist | DX: G43.711 Chronic migraine without aura, intractable, with status migrainosus (principal); F44.5 Conversion disorder with seizures or convulsions; M46.1 Sacroiliitis, not elsewhere classified; M70.61 Trochanteric bursitis, right hip; M70.62 Trochanteric bursitis, left hip; M79.7 Fibromyalgia; Y93.9 Activity, unspecified | CPT/HCPCS: 20610; 99212; J1010; J3490 ==

== ENCOUNTER → 2023-09-23 10:16 | Outpatient (BNVA) | payer OTHER, MEDICAID, SELFPAY | PROVIDERS: PCP Nurse Practitioner Family; Referring Provider Emergency Medicine; Visit Provider Surgery | DX: R10.9 Unspecified abdominal pain (principal); K21.9 Gastro-esophageal reflux disease without esophagitis; K29.70 Gastritis, unspecified, without bleeding; K27.9 Peptic ulcer, site unspecified, unspecified as acute or chronic, without hemorrhage or perforation; K57.92 Diverticulitis of intestine, part unspecified, without perforation or abscess without bleeding | CPT/HCPCS: 99204 ==

== ENCOUNTER → 2023-10-01 10:44 | Outpatient (BNVA) | payer OTHER, MEDICAID, SELFPAY | PROVIDERS: PCP Nurse Practitioner Family; Visit Provider Internal Medicine | DX: E11.9 Type 2 diabetes mellitus without complications (principal); E78.2 Mixed hyperlipidemia; K30 Functional dyspepsia; Z79.4 Long term (current) use of insulin; Z79.84 Long term (current) use of oral hypoglycemic drugs | CPT/HCPCS: 99214 ==

== ENCOUNTER 2023-10-15 09:04 | Outpatient (CLI) | payer OTHER, MEDICAID, SELFPAY ==
--- NOTE | 2023-10-15 09:28 | XR_ITS ---
WS: [id number] Exam: XR shoulder LT min 2V* [id number] Date/Time of Exam: 10/15/2023 9:51 AM Reason For Exam: M25.60 - Stiffness of unspecified joint, not elsewhere cl... No fracture or dislocation. The joints are preserved. Normal soft tissues. XR/XR shoulder LT min 2V* [id number] IMPRESSION: 1. Negative LEFT shoulder.
--- NOTE | 2023-10-15 09:28 | XR_ITS ---
WS: [id number] Exam: XR shoulder RT min 2V* [id number] Date/Time of Exam: 10/15/2023 9:51 AM Reason For Exam: M25.519 - Pain in unspecified shoulder No fracture or dislocation. The joints are preserved. Normal soft tissues. XR/XR shoulder RT min 2V* [id number] IMPRESSION: 1. Negative RIGHT shoulder.
[2023-10-15 09:38] LABS: Basophils % 0.5 %; Eosinophils # 0.1 10^3/uL (0.0-0.8); Eosinophils % 1.9 %; Hematocrit 40.8 % (36-47); Lymphocytes # 2.4 10^3/uL (0.8-4.8); Lymphocytes % 32.3 %; Mean Corpuscular HGB Conc 31.9 g/dL (30-55); Mean Corpuscular Hemoglobin 28.3 pg (27-33); Mean Corpuscular Volume 88.9 fl (85-98); Mean Platelet Volume 10.8 fL (7.4-10.4); Monocytes # 0.5 10^3/uL (0.2-0.9); Monocytes % 6.3 %; Neutrophils # 4.35 10^3/uL (1.8-7.7); Neutrophils % 58.5 %; Nucleated Red Blood Cells % 0 %; Platelet Count 208 10^3/cmm (157-399); Red Blood Count 4.59 10^6/uL (3.85-5.65); Red Cell Distribution Width 14.3 % (12.1-15.1); White Blood Count 7.45 10^3/uL (3.29-11.43)
[2023-10-15 09:56] LABS: Alanine Aminotransferase 27 U/L (0-33); Albumin Level 4.2 g/dL (3.5-5.2); Alkaline Phosphatase 98 U/L (35-105); Aspartate Amino Transferase 14 U/L (0-32); C Reactive Protein 11.2 mg/L (0.0-4.9); Globulin 3.4 g/dL (1.3-4.6); Glomerular Filtration Rate 90.5 mL/min (90-130); Total Bilirubin 0.2 mg/dL (0.15-1.2); Total Protein 7.6 g/dL (6.6-8.7)
== END 2023-10-15 09:05 | disposition home or self-care (01) ==
PROVIDERS: Internal Medicine Rheumatology; PCP Nurse Practitioner Family; Visit Provider Anesthesiology Pain Medicine
DX: M25.612 Stiffness of left shoulder, not elsewhere classified; M25.611 Stiffness of right shoulder, not elsewhere classified; M06.4 Inflammatory polyarthropathy; M19.90 Unspecified osteoarthritis, unspecified site; Z79.899 Other long term (current) drug therapy
CPT/HCPCS: 36415; 73030; 80076; 82565; 85025; 86140; 99214

== ENCOUNTER 2023-11-19 08:58 | Day surgery (SDC) | payer OTHER, MEDICAID, SELFPAY ==
[2023-11-19 09:22] VITALS: BP 156/99; PULSE 97; RESP 18; TEMP 36.2; O2SAT 95; BMI 41.9
[2023-11-19] MEDS: sodium chloride 0.9% 1,000 ML 30 ML IV (09:37)
--- NOTE | 2023-11-19 09:38 | P.ANESASSM_ITS ---
Pre-Anesthetic Assessment Height/Weight: Height 1.68 m Weight 117.934 kg Temp Pulse Resp BP Pulse Ox O2 Del Method 97.1 F L 97 18 156/99 95 Room Air 11/19/23 09:22 11/19/23 09:22 11/19/23 09:22 11/19/23 09:22 11/19/23 09:22 11/19/23 09:22 Operation Date: 11/19/23 10:10 Proposed Procedures p EGD 86858, 44527, R10.9, K21.9(Not Applicable) - Peng Beckman MD s Colonoscopy(Not Applicable) - Peng Beckman MD Familial anesthetic complications: None Was Beta Dayami taken within 24 hours: N/A Was Clonidine taken within 24 hours: N/A Last intake: Intake Last Liquid Date 11/18/23 Last Liquid Time 22:00 Last Solid Date 11/17/23 Last Solid Time 19:30 Social No alcohol and No tobacco Exam alert, oriented x 3 and clear to auscultation bilaterally Airway Mallampati: Class III Dentition: full History/ROS No significant history except as noted Pulmonary Asthma (has not had to use inhaler recently) CV/HEM None reported None reported Hepatic fatty liver GI Gastroesophageal Reflux Disease Metabolic Diabetes Mellitus, Hyperlipidemia and Morbid Obesity Musc/skel Lower Back Pain Neuropsych Seizure (has not had a seizure in >6 months and compliant with medication per pt) Anesthetic Plan ASA status: 4 Anesthesia: Anesthesia Evaluation and MAC Risk of > 500 ml blood loss (7ml/kg in children): No Medications/Allergies Home Medications Medication Instructions Recorded Confirmed Last Taken Type fluticasone propionate 50 2 spray intranasal DAILY PRN 06/03/19 11/19/23 11/16/23 History mcg/actuation nasal Allergy Symptoms spray,suspension (Allergy Relief (fluticasone)) buspirone 10 mg tablet 30 mg PO DAILY 07/27/19 11/19/23 11/18/23 History hydroxyzine HCl 25 mg tablet 100 mg PO TID PRN Anxiety 05/31/21 11/19/23 Unknown History ropinirole 1 mg tablet 3 mg PO BEDTIME 05/31/21 11/19/23 11/18/23 History citalopram 40 mg tablet 40 mg PO BEDTIME Anxiety PTSD 03/10/23 11/19/23 11/18/23 History sucralfate 1 gram tablet 1 g PO QID Stomach Ulcers 03/10/23 11/19/23 11/18/23 History zonisamide 100 mg capsule 100 mg PO TID 90 days #270 caps 03/10/23 11/19/23 11/18/23 Rx 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 meter,continuous #1 ea 06/16/23 10/15/23 Unknown Rx (Dexcom G7 Intervention Specialist) tirzepatide 5 mg/0.5 mL 5 mg (0.5 mL) SUBCUT Q7D 1 month 07/01/23 11/19/23 10/22/23 Rx subcutaneous pen injector #2 mL (Mounjaro) tirzepatide 7.5 mg/0.5 mL 7.5 mg (0.5 mL) SUBCUT Q7D #2 mL 07/01/23 11/19/23 Unknown Rx subcutaneous pen injector (Mounjaro) atorvastatin 20 mg tablet 20 mg PO BEDTIME 07/17/23 11/19/23 11/18/23 History esomeprazole magnesium 40 mg 40 mg PO QPM 07/17/23 11/19/23 11/18/23 History capsule,delayed release (Nexium) gabapentin 600 mg tablet 600 mg PO BID #60 tabs 07/17/23 11/19/23 11/18/23 Rx tramadol 50 mg tablet 50 mg PO BID PRN pain #60 tabs 07/17/23 11/19/23 Unknown Rx 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 sensor (Dexcom G7 #9 ea 07/31/23 10/15/23 Unknown Rx Sensor device) albuterol sulfate 90 mcg/actuation 2 puff inhalation Q4H PRN 08/25/23 11/19/23 Unknown History aerosol inhaler Shortness Of Breath ascorbic acid (vitamin C) 500 mg 500 mg PO .WEEKLY 08/25/23 11/19/23 08/24/23 History tablet (Vitamin C) aspirin 81 mg tablet,delayed 81 mg PO BEDTIME 08/25/23 11/19/23 11/17/23 History release cholecalciferol (vitamin D3) 1,250 50,000 unit PO Q7D 08/25/23 11/19/23 11/14/23 History mcg (50,000 unit) capsule dapagliflozin propanediol 10 mg 10 mg PO BEDTIME 08/25/23 11/19/23 11/18/23 History tablet (Farxiga) diclofenac sodium 1 % topical gel 4 g topical QID PRN Pain 08/25/23 11/19/23 Unknown History dicyclomine 20 mg tablet 20 mg PO TID PRN abdominal pain 08/25/23 11/19/23 11/16/23 Rx #20 tabs ibuprofen 800 mg tablet 800 mg PO TID PRN Pain 08/25/23 11/19/23 Unknown History insulin lispro 100 unit/mL See Rx Instructions .Route .COMPLEX 08/25/23 11/19/23 11/18/23 History subcutaneous pen (Humalog KwikPen (U-100) Insulin) ondansetron 4 mg disintegrating 4 mg PO Q6H PRN nausea and 08/25/23 11/19/23 Unknown Rx tablet vomiting #14 tabs polyethylene glycol 3350 17 gram 17 g PO TID PRN Constipation 08/25/23 11/19/23 08/25/23 History oral powder packet (Miralax) prednisone 5 mg tablet 5 mg PO BID PRN flare ups 08/25/23 11/19/23 Unknown History tizanidine 4 mg tablet 4 mg PO BEDTIME Muscle Spasm 08/25/23 11/19/23 11/18/23 History pen needle, diabetic 32 gauge x #100 ea 09/17/23 10/15/23 Unknown Rx (BD Sandie 2nd Gen Pen Needle) erenumab-aooe 140 mg/mL See Rx Instructions .Route 10/27/23 11/19/23 11/14/23 Rx subcutaneous auto-injector .COMPLEX #4 mL (Aimovig Autoinjector) diclofenac sodium 75 mg 75 mg PO BID PRN joint pain 11/17/23 11/19/23 11/18/23 History tablet,delayed release insulin glargine 100 unit/mL (3 30 unit SUBCUT DAILY 11/17/23 11/19/23 11/17/23 History mL) subcutaneous pen (Lantus Solostar U-100 Insulin) secukinumab 150 mg/mL subcutaneous 150 mg SUBCUT .[id number] 11/17/23 11/19/23 11/14/23 History pen injector (Cosentyx Pen 300 mg/2 Pens () Allergies Allergy/AdvReac Type Severity Reaction Status Date / Time methylprednisolone Allergy ADR/ALGY-Pa Verified 11/17/23 11:43 lpitations Current Medications Generic Name Dose Route Start Last Admin Trade Name Pete PRN Reason Stop Dose Admin Sodium Chloride 1,000 mls @ 30 mls/hr 11/19/23 09:15 11/19/23 09:37 Sodium Chloride 0.9% IV 30 mls/hr .Q24H MILLICENT Administration PFSH Anesthesia Medical History Loss of consciousness Anemia Depression PTSD (post-traumatic stress disorder) Intervertebral disc disorder with radiculopathy of lumbar region Gastritis Fibromyalgia Undifferentiated connective tissue disease Inflammatory arthritis Sacroiliitis Spondylarthritis Surgical History H/O esophagogastroduodenoscopy 08/02/2019: Gastric erosions History of dilation and curettage History of tubal ligation History of tonsillectomy History of cholecystectomy Family History Mother Arthritis Heart disease Stroke Father Cancer Diabetes Heart disease Kidney disease Social History Smoking and tobacco/nicotine status: former use of tobacco/nicotine Quit status (tobacco/nicotine): has tried quititng Alcohol intake: never Substance/Drug Use: never Household members: children Marital status: Current occupational status: unemployed Data Anesthesia Cardiac Studies: No Data to Display
[2023-11-19 09:42] LABS: Glucose Point of Care 228 mg/dL (70-110)
[2023-11-19 09:48] LABS: OR HCG Qualitative Urine Negative (Negative)
--- NOTE | 2023-11-19 09:49 | W.PM.OPSFHP ---
Same Day Surgery H&P Indication for Procedure/HPI DATE OF PROCEDURE: November 19, 2023 CHIEF COMPLAINT/INDICATIONFOR SURGICAL PROCEDURE: history of diverticulitis, abdominal pain PREOP DIAGNOSIS: history of diverticulitis, abdominal pain PLANNED PROCEDURE: Operation Date: 11/19/23 10:10 Proposed Procedures p EGD 82846, 76551, R10.9, K21.9(Not Applicable) - Peng Beckman MD s Colonoscopy(Not Applicable) - Peng Beckman MD Medications/Allergies* Home Medications Medication Instructions Recorded Confirmed Type fluticasone propionate 50 2 spray intranasal DAILY PRN 06/03/19 11/19/23 History mcg/actuation nasal Allergy Symptoms spray,suspension (Allergy Relief (fluticasone)) buspirone 10 mg tablet 30 mg PO DAILY 07/27/19 11/19/23 History hydroxyzine HCl 25 mg tablet 100 mg PO TID PRN Anxiety 05/31/21 11/19/23 History ropinirole 1 mg tablet 3 mg PO BEDTIME 05/31/21 11/19/23 History citalopram 40 mg tablet 40 mg PO BEDTIME Anxiety PTSD 03/10/23 11/19/23 History sucralfate 1 gram tablet 1 g PO QID Stomach Ulcers 03/10/23 11/19/23 History atorvastatin 20 mg tablet 20 mg PO BEDTIME 07/17/23 11/19/23 History esomeprazole magnesium 40 mg 40 mg PO QPM 07/17/23 11/19/23 History capsule,delayed release (Nexium) albuterol sulfate 90 mcg/actuation 2 puff inhalation Q4H PRN 08/25/23 11/19/23 History aerosol inhaler Shortness Of Breath ascorbic acid (vitamin C) 500 mg 500 mg PO .WEEKLY 08/25/23 11/19/23 History tablet (Vitamin C) aspirin 81 mg tablet,delayed 81 mg PO BEDTIME 08/25/23 11/19/23 History release cholecalciferol (vitamin D3) 1,250 50,000 unit PO Q7D 08/25/23 11/19/23 History mcg (50,000 unit) capsule dapagliflozin propanediol 10 mg 10 mg PO BEDTIME 08/25/23 11/19/23 History tablet (Farxiga) diclofenac sodium 1 % topical gel 4 g topical QID PRN Pain 08/25/23 11/19/23 History ibuprofen 800 mg tablet 800 mg PO TID PRN Pain 08/25/23 11/19/23 History insulin lispro 100 unit/mL See Rx Instructions .Route .COMPLEX 08/25/23 11/19/23 History subcutaneous pen (Humalog KwikPen (U-100) Insulin) polyethylene glycol 3350 17 gram 17 g PO TID PRN Constipation 08/25/23 11/19/23 History oral powder packet (Miralax) prednisone 5 mg tablet 5 mg PO BID PRN flare ups 08/25/23 11/19/23 History tizanidine 4 mg tablet 4 mg PO BEDTIME Muscle Spasm 08/25/23 11/19/23 History diclofenac sodium 75 mg 75 mg PO BID PRN joint pain 11/17/23 11/19/23 History tablet,delayed release insulin glargine 100 unit/mL (3 30 unit SUBCUT DAILY 11/17/23 11/19/23 History mL) subcutaneous pen (Lantus Solostar U-100 Insulin) secukinumab 150 mg/mL subcutaneous 150 mg SUBCUT .[id number] 11/17/23 11/19/23 History pen injector (Cosentyx Pen 300 mg/2 Pens () Allergies/Adverse Reactions Allergy/AdvReac Type Severity Reaction Status Date / Time methylprednisolone Allergy ADR/ALGY-Pa Verified 11/17/23 11:43 lpitations Current Medications: Generic Name Dose Route Start Last Admin Trade Name Freq PRN Reason Stop Dose Admin Sodium Chloride 1,000 mls @ 30 mls/hr 11/19/23 09:15 11/19/23 09:37 Sodium Chloride 0.9% IV 30 mls/hr .Q24H MILLICENT Administration Pertinent History/Comorbid Conditions* Medical History (Updated 10/01/23 @ 11:44 by Nelly Correa MD) Loss of consciousness Anemia Depression PTSD (post-traumatic stress disorder) Intervertebral disc disorder with radiculopathy of lumbar region Gastritis Fibromyalgia Undifferentiated connective tissue disease Inflammatory arthritis Sacroiliitis Spondylarthritis Surgical History (Updated 08/02/19 @ 09:12 by Antoine Bauer MD) H/O esophagogastroduodenoscopy 08/02/2019: Gastric erosions History of dilation and curettage History of tubal ligation History of tonsillectomy History of cholecystectomy Family History (Updated 09/29/19 @ 13:05 by Jovita Tierney LPN) Diabetes Father Arthritis Mother Heart disease Mother Father Kidney disease Father Cancer Father Stroke Mother Social History Smoking and tobacco/nicotine status: former use of tobacco/nicotine Quit status (tobacco/nicotine): has tried quititng Alcohol intake: never Substance/Drug Use: never Household members: children Marital status: Current occupational status: unemployed Pertinent Exam Findings alert, oriented x 3, clear to auscultation bilaterally and regular rate & rhythm Recommendations Surgery/Procedure today Coding Level of Care Code Acute Code for Chg Fwd
[2023-11-19 10:26] VITALS: BP 123/81; PULSE 96; RESP 16; TEMP 36.3; O2SAT 96
--- NOTE | 2023-11-19 10:31 | ANE.PACU2 ---
Inpatient post-anesthesia follow up: Airway intact: Yes Vital signs: Temperature 97.4 F Pulse Rate 96 Respiratory Rate 16 Blood Pressure 123/81 Pulse Oximetry 96 Oxygen Delivery Me thod Room Air Oxygen Flow Rate Fraction of Inspir ed Oxygen Hydration adequate: Yes Nausea and vomiting: No Pain level: 0 Mental status: Baseline
[2023-11-19 10:46] VITALS: BP 118/75; PULSE 85; RESP 18; O2SAT 97
== END 2023-11-19 10:55 | disposition home or self-care (01) ==
PROVIDERS: Anesthesiology; PCP Nurse Practitioner Family; Visit Provider Surgery
PROC: 0DJ08ZZ Inspection of Upper Intestinal Tract, Via Natural or Artificial Opening Endoscopic (ICD-10-PCS; CPT 43235; principal; 2023-11-19 10:10)
PROC: 0DJD8ZZ Inspection of Lower Intestinal Tract, Via Natural or Artificial Opening Endoscopic (ICD-10-PCS; CPT 45378; 2023-11-19 10:10)
DX: K21.9 Gastro-esophageal reflux disease without esophagitis (principal); R10.9 Unspecified abdominal pain; K57.30 Diverticulosis of large intestine without perforation or abscess without bleeding; K44.9 Diaphragmatic hernia without obstruction or gangrene; K29.50 Unspecified chronic gastritis without bleeding; E11.9 Type 2 diabetes mellitus without complications; E78.5 Hyperlipidemia, unspecified; E66.01 Morbid (severe) obesity due to excess calories; Z68.41 Body mass index [BMI] 40.0-44.9, adult; M79.7 Fibromyalgia; Z87.891 Personal history of nicotine dependence
CPT/HCPCS: 36416; 43239; 45378; 81025; 82962; 88305; J2250; J2704; J7030

== ENCOUNTER → 2023-12-09 12:57 | Outpatient (BNVA) | payer OTHER, MEDICAID, SELFPAY | PROVIDERS: PCP Nurse Practitioner Family; Visit Provider Surgery | DX: Z09 Encounter for follow-up examination after completed treatment for conditions other than malignant neoplasm (principal); R03.0 Elevated blood-pressure reading, without diagnosis of hypertension | CPT/HCPCS: 99213 ==

== ENCOUNTER → 2024-01-02 11:49 | Outpatient (BNVA) | payer OTHER, MEDICAID, SELFPAY | PROVIDERS: PCP Nurse Practitioner Family; Visit Provider Internal Medicine | DX: Z11.1 Encounter for screening for respiratory tuberculosis (principal); E11.9 Type 2 diabetes mellitus without complications; E78.2 Mixed hyperlipidemia | CPT/HCPCS: 36415; 80053; 80061; 82044; 83036; 86480 ==

== ENCOUNTER 2024-01-18 04:58 | Inpatient (IN) | payer MEDICARE, MEDICAID, SELFPAY ==
[2024-01-18] VITALS (7 sets, daily range): BP systolic 119–173; BP diastolic 74–117; PULSE 91–122; RESP 15–18; TEMP 36.6–36.8; O2SAT 96–97; BMI 42.3
--- NOTE | 2024-01-18 05:34 | ED.C_ITS ---
HPI - Psych 2 General: Chief Complaint: Psychiatric Symptoms Stated Complaint: mhe Time Seen by Provider: 01/18/24 05:23 History of Present Illness: 43-year-old female with history of depre ssion. She presents at her wits end this morning with stress at home. When asked about suicidal plans, she admits to thoughts, but notes that it is against God's law to do so. Related Data Home Medications Medication Instructions Recorded Confirmed fluticasone propionate 50 2 spray intranasal DAILY PRN 06/03/19 01/02/24 mcg/actuation nasal Allergy Symptoms spray,suspension (Allergy Relief (fluticasone)) buspirone 10 mg tablet 30 mg PO DAILY 07/27/19 01/02/24 hydroxyzine HCl 25 mg tablet 100 mg PO TID PRN Anxiety 05/31/21 01/02/24 ropinirole 1 mg tablet 3 mg PO BEDTIME 05/31/21 01/02/24 citalopram 40 mg tablet 40 mg PO BEDTIME Anxiety PTSD 03/10/23 01/02/24 sucralfate 1 gram tablet 1 g PO QID Stomach Ulcers 03/10/23 01/02/24 atorvastatin 20 mg tablet 20 mg PO BEDTIME 07/17/23 01/02/24 esomeprazole magnesium 40 mg 40 mg PO QPM 07/17/23 01/02/24 capsule,delayed release (Nexium) albuterol sulfate 90 mcg/actuation 2 puff inhalation Q4H PRN 08/25/23 01/02/24 aerosol inhaler Shortness Of Breath ascorbic acid (vitamin C) 500 mg 500 mg PO .WEEKLY 08/25/23 01/02/24 tablet (Vitamin C) aspirin 81 mg tablet,delayed 81 mg PO BEDTIME 08/25/23 01/02/24 release cholecalciferol (vitamin D3) 1,250 50,000 unit PO Q7D 08/25/23 01/02/24 mcg (50,000 unit) capsule dapagliflozin propanediol 10 mg 10 mg PO BEDTIME 08/25/23 01/02/24 tablet (Farxiga) ibuprofen 800 mg tablet 800 mg PO TID PRN Pain 08/25/23 01/02/24 insulin lispro 100 unit/mL See Rx Instructions .Route .COMPLEX 08/25/23 01/02/24 subcutaneous pen (Humalog KwikPen (U-100) Insulin) polyethylene glycol 3350 17 gram 17 g PO TID PRN Constipation 08/25/23 01/02/24 oral powder packet (Miralax) prednisone 5 mg tablet 5 mg PO BID PRN flare ups 08/25/23 01/02/24 tizanidine 4 mg tablet 4 mg PO BEDTIME Muscle Spasm 08/25/23 01/02/24 diclofenac sodium 75 mg 75 mg PO BID PRN joint pain 11/17/23 01/02/24 tablet,delayed release insulin glargine 100 unit/mL (3 30 unit SUBCUT DAILY 11/17/23 01/02/24 mL) subcutaneous pen (Lantus Solostar U-100 Insulin) Previous Rx's Medication Instructions Recorded zonisamide 100 mg capsule 100 mg PO TID 90 days #270 caps 03/10/23 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 meter,continuous #1 ea 06/16/23 (Dexcom G7 [employer] H[employer] Developer) gabapentin 600 mg tablet 600 mg PO BID #60 tabs 07/17/23 tramadol 50 mg tablet 50 mg PO BID PRN pain #60 tabs 07/17/23 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 sensor (Dexcom G7 #9 ea 07/31/23 Sensor device) dicyclomine 20 mg tablet 20 mg PO TID PRN abdominal pain 08/25/23 #20 tabs ondansetron 4 mg disintegrating 4 mg PO Q6H PRN nausea and 08/25/23 tablet vomiting #14 tabs pen needle, diabetic 32 gauge x #100 ea 09/17/23 (BD Sandie 2nd Gen Pen Needle) erenumab-aooe 140 mg/mL See Rx Instructions .Route 10/27/23 subcutaneous auto-injector .COMPLEX #4 mL (Aimovig Autoinjector) diclofenac sodium 1 % topical gel 4 g topical QID PRN Pain #100 grams 12/09/23 pantoprazole 40 mg tablet,delayed 40 mg PO ONCE 30 days #30 tabs 12/09/23 release (Protonix) secukinumab 150 mg/mL subcutaneous 150 mg SUBCUT .Q8UIRTL #2 mL 01/07/24 pen injector (Cosentyx Pen 300 mg/2 Pens () Allergies Allergy/AdvReac Type Severity Reaction Status Date / Time methylprednisolone Allergy ADR/ALGY-Pa Verified 01/02/24 07:45 lpitations PFSH ED 2 PFSH: Medical History Loss of consciousness Anemia Depression PTSD (post-traumatic stress disorder) Intervertebral disc disorder with radiculopathy of lumbar region Gastritis Fibromyalgia Undifferentiated connective tissue disease Inflammatory arthritis Sacroiliitis Spondylarthritis Surgical History H/O esophagogastroduodenoscopy 08/02/2019: Gastric erosions History of dilation and curettage History of tubal ligation History of tonsillectomy History of cholecystectomy Family History Mother Arthritis Heart disease Stroke Father Cancer Diabetes Heart disease Kidney disease Social History Smoking and tobacco/nicotine status: never used tobacco/nicotine Quit status (tobacco/nicotine): has tried quititng Alcohol intake: never Substance/Drug Use: never Household members: children Marital status: Current occupational status: unemployed Physical Exam 2 Const: COMMON NORMALS: no acute distress GENERAL APPEARANCE: cooperative; not ill appearing and not frail appearing HENMT: COMMON NORMALS: normocephalic, atraumatic and Normal external nose present HEAD & SCALP: normocephalic and atraumatic FACE & SINUS: normal facial exam and face symmetric NOSE: Normal external nose present Eye: COMMON NORMALS: Equal, round and reactive pupils present and EOMs intact bilaterally PUPIL: Yes Equal, round and reactive pupils present Neck/C-Spine: GENERAL: Yes trachea midline Chest: CHEST: Yes Symmetrical chest wall rise Resp: COMMON NORMALS: normal respiratory effort, No retractions, No use of accessory muscles and clear to auscultation bilaterally AUSCULTATION: clear to auscultation bilaterally Cardio: COMMON NORMALS: regular rate and regular rhythm RATE: regular rate RHYTHM: regular rhythm GI: COMMON NORMALS: Normal to inspection, nondistended, normoactive bowel sounds present Extremity: COMMON NORMALS: no pedal edema Neuro: LAURE COMA SCALE: document GCS findings Laure coma scale eye opening: Spontaneous Spicer coma scale verbal response: Orientated Spicer coma scale motor response: Obey commands Laure coma scale total score: 15 S ENSORY EXAM: Yes extremities (intact) Psych: COMMON NORMALS: Normal thought process present, cooperative and speech normal ACTIVITY/MOTOR BEHAVIOR: Yes appropriate eye contact SPEECH: Yes normal speech MOOD & AFFECT: Yes depressed mood, Yes sad and Yes tearful T HOUGHT PROCESS: Normal thought process present ATTENTION/CONCENTRATION: Yes attention grossly intact and Yes concentration grossly impaired M ORAL/COGNITION: Yes memory grossly intact and Yes cognition grossly impaired Skin: COMMON NORMALS: no rashes or lesions noted GENERAL SKIN EXAM: no rashes or lesions noted Course 2 Vital Signs: Vital signs: Vital Signs Temperature 98.3 F 01/18/24 14:00 Pulse Rate 91 01/18/24 14:00 Respiratory Rate 17 01/18/24 14:00 Blood Pressure 130/74 01/18/24 14:00 Pulse Oximetry 97 01/18/24 14:00 Oxygen Delivery Me thod Room Air 01/18/24 09:19 MDM - Psych Medical Decision Making Patient is hypertensive, but she is upset. Laboratory is stable period medically she appears stable period no substances on board. Spoke with psychiatry. She'll be admitted. Lab Data 01/18/24 05:48 01/18/24 05:48 All radiology interpretation(s) finalized by discharge Discharge Plan Discharge Patient Disposition: Admitted As Inpatient Admit Provider: Ren Vega Clinical Impression: Depression, Suicidal ideation Condition: Stable Coding Level of Care Code ED Director Of Oncology for Andres Jarrell
[2024-01-18 05:53] LABS: Basophils # 0.1 10^3/uL (0.0-0.1); Basophils % 0.5 %; Eosinophils # 0.2 10^3/uL (0.0-0.8); Eosinophils % 1.4 %; Hematocrit 41.1 % (36-47); Lymphocytes # 2.4 10^3/uL (0.8-4.8); Mean Corpuscular HGB Conc 32.4 g/dL (30-55); Mean Corpuscular Hemoglobin 28.5 pg (27-33); Mean Corpuscular Volume 88.2 fl (85-98); Mean Platelet Volume 10.3 fL (7.4-10.4); Monocytes # 0.7 10^3/uL (0.2-0.9); Neutrophils # 8.99 10^3/uL (1.8-7.7); Neutrophils % 72.5 %; Nucleated Red Blood Cells % 0 %; Platelet Count 244 10^3/cmm (157-399); Red Blood Count 4.66 10^6/uL (3.85-5.65); Red Cell Distribution Width 13.6 % (12.1-15.1); White Blood Count 12.38 10^3/uL (3.29-11.43)
[2024-01-18 06:14] LABS: Alanine Aminotransferase 20 U/L (0-33); Albumin Level 3.8 g/dL (3.5-5.2); Alkaline Phosphatase 86 U/L (35-105); Anion Gap 19.8 (5-19); Aspartate Amino Transferase 17 U/L (0-32); Blood Urea Nitrogen 10 mg/dL (6-20); Calcium 8.8 mg/dL (8.5-10.5); Carbon Dioxide 17 mmol/L (22-29); Chloride 103 mmol/L (98-107); Creatinine Clr Calc Pharmacy 155.3623; Globulin 3.6 g/dL (1.3-4.6); Glomerular Filtration Rate 108.1 mL/min (90-130); Glucose 251 mg/dL (65-115); Osmolality Calculated 290 mOsm/kg (285-295); Potassium 3.8 mmol/L (3.5-5.1); Sodium 136 mmol/L (136-145); Total Bilirubin 0.5 mg/dL (0.15-1.2); Total Protein 7.4 g/dL (6.6-8.7)
[2024-01-18 06:21] LABS: Acetaminophen < 5.0 ug/mL (10-30); Alcohol Level < 10 mg/dL (0-10); Salicylate < 0.3 mg/dL (3-10)
[2024-01-18 06:22] LABS: HCG Qualitative Urine. Negative (Negative)
[2024-01-18 06:26] LABS: Charge for UA Resulting for Rev
[2024-01-18 06:31] LABS: Bilirubin Urine Negative (Negative); Blood Urine Negative (Negative); Glucose Urine UA 1+ (Normal); Ketones Urine 2+ (Negative); Leukocyte Esterase Urine Negative (Negative); Nitrate Urine Negative (Negative); Protein Urine 1+ (Negative); Specific Gravity, Urine 1.027 (1.005-1.030); Urine Appearance Clear (CLEAR); Urine Color Dark Yellow (Yellow); pH Urine 5.5 (5-7)
[2024-01-18 06:36] LABS: Bacteria Urine None Seen /hpf; Hyaline Casts Urine 50.89 /lpf; RBC Urine 0-2 /hpf (0-2); WBC Urine 0-5 /hpf (0-5)
[2024-01-18 06:55] LABS: UA Slide Review UA Slide Review Perf
[2024-01-18 07:03] LABS: Amphetamines Screen Urine Negative (Negative); Barbiturates Screen Urine Negative (Negative); Benzodiazepines Screen Urine Negative (Negative); Cocaine Screen Urine Negative (Negative); Opiate Screen Urine Negative (Negative); PCP Screen Urine Negative (Negative); THC Screen Urine Negative (Negative)
[2024-01-18] MEDS: metoprolol succinate ER (24 HR) 25 mg Tablet PO (07:17)
--- NOTE | 2024-01-18 09:32 | PC.NURSE ---
Patient has multiple health issues that limit her ability to care for herself. Patient relies on the assistance from her olderst daughter in caring for herself was well as helping to care for her 18 year old and 10 year old. Patient is having difficulty caring for the 18 year old and 10 year old; the 10 year old is autistic. Patient reports that her children call her worthless and are unhelpful. Patient is concerned that her daughter is going to move out with the 18 year old and then she will lose her support. Patient denies SI, HI, AVH, and anxiety. Patient reports depression. Patient tearful during admission assessment.
[2024-01-18 11:32] LABS: Glucose Point of Care 218 mg/dL (70-110)
[2024-01-18] MEDS: insulin lispro 100 unit/1 mL SUBCUT ×3 (12:31→20:40)
[2024-01-18] MEDS: pantoprazole DR 40 mg Tablet PO (12:32)
[2024-01-18] MEDS: zonisamide 100 MG Capsule PO ×2 (15:43→20:40)
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
[2024-01-18] MEDS: diclofenac 75 mg DR Tablet PO (16:59)
[2024-01-18] MEDS: sertraline 50 mg Tablet 25 MG PO (17:00)
[2024-01-18] MEDS: acetaminophen 325 mg Tablet 650 MG PO (17:08)
[2024-01-18] MEDS: gabapentin 300 mg Capsule 600 MG PO (17:08)
[2024-01-18 17:55] LABS: Glucose Point of Care 203 mg/dL (70-110)
[2024-01-18 19:56] LABS: Glucose Point of Care 328 mg/dL (70-110)
[2024-01-18] MEDS: insulin glargine 100 units/1 mL 30 UNIT SUBCUT (20:40)
[2024-01-18] MEDS: citalopram 20 mg Tablet PO (20:40)
[2024-01-19 06:00] VITALS: BP 125/77; PULSE 90; RESP 16; TEMP 36.8; O2SAT 98
[2024-01-19 08:01] LABS: Glucose Point of Care 245 mg/dL (70-110)
[2024-01-19] MEDS: zonisamide 100 MG Capsule PO ×3 (08:17→20:38)
[2024-01-19] MEDS: gabapentin 300 mg Capsule 600 MG PO ×2 (08:17→17:34)
[2024-01-19] MEDS: sertraline 50 mg Tablet 25 MG PO (08:17)
[2024-01-19] MEDS: insulin lispro 100 unit/1 mL SUBCUT ×4 (08:30→20:39)
--- NOTE | 2024-01-19 08:48 | PC.NURSE ---
During morning shift assessment, patient states that she is feeling better than yesterday. Patient states that she hashed it out with her daughter and son. Patient appears to be well-rested. Patient denies SI, HI, AVH, and anxiety. Patient endorses depression, but feels better.
[2024-01-19] MEDS: COSENTYX 150 MG/ML SUBCUT (10:00)
[2024-01-19] MEDS: ERENUMAB SUBCUT (10:00)
[2024-01-19 11:24] LABS: Glucose Point of Care 243 mg/dL (70-110)
[2024-01-19 14:00] VITALS: BP 123/77; PULSE 90; RESP 17; TEMP 36.6; O2SAT 99
--- NOTE | 2024-01-19 15:39 | P.NPUPN_ITS ---
Subjective NPU 2 Subjective: 43-year-old female with history of multi ple medical problems admitted with worsening depression and anxiety. She had remained agreeable to an eventual tapering and discontinuation of Celexa having used this medication for years with no improvement in mood reported. She reported no side effects from her initial dose of Zoloft. She had continued to report feeling anxious. She had endorsed increased feelings of hopelessness and reported worsening depression for the past several months. She had reported having difficulties falling asleep. She had reported recent problems with low energy. She had reported no recent onset of seizures since starting the zonisamide. She had remained somewhat isolative on the milieu. She had reported no recent psychotherapy stating that her primary care physician had been managing her psychotropic medications as well. Mental Status Exam 2 MSE Comments: Patient is a casually dressed obese white female who appeared older than her stated age with fair hygiene and normal gait. There was no evidence of any abnormal involuntary motor movements, tics, or tremors appreciated. There was prominent psychomotor retardation. Her speech was normal in regards to rate,rhythm and prosody. Her mood was described as depressed. Her affect was restricted in range and mood congruent. Her thought process was linear, logical and goal-directed. Her thought content showed no evidence of active homicidal ideation. She minimized any active suicidal ideation. There was no clear evidence of delusional thinking. She did not appear to be responding to internal stimuli. She denied any auditory or visual hallucinations. Her recent and remote memory appeared grossly intact. She was alert and oriented person place time and situation. Her insight is poor. Judgment is poor. Her impulse control appeared limited. Vitals/I&O/Wt Last Vital Signs Temp 97.9 F 01/19/24 14:00 Pulse 90 01/19/24 14:00 Resp 17 01/19/24 14:00 BP 123/77 01/19/24 14:00 Pulse Ox 99 01/19/24 14:00 O2 Del Method Room Air 01/18/24 09:19 Weight last 48 hrs Weight 118.478 kg Weight 118.841 kg Data NPU 01/18/24 05:48 01/18/24 05:48 A&P Assessment and plan (1) Major depressive disorder, recurrent severe without psychotic features: (2) HARRIETT (generalized anxiety disorder): (3) PTSD (post-traumatic stress disorder): Plan 43-year-old white female with multiple medical problems currently on multiple medications endorsing worsening depression for several months with increased psychosocial stressors at home as well. Patient would likely benefit from inpatient hospital stay with changes to be made in her medication regimen. #1.? Engage patient in individual milieu and group therapy. #2?? Recommend sober living treatment at the highest level of care to which the patient is willing to commit #3??? Restart outpatient medications. Celexa taper now at 20mg daily and increase in zoloft to 50mg daily. Discontinued buspirone. #4?? TO-15 minute checks #5?? Will attempt to gather collateral information ? Involuntary Hold Information 2 96 Hour Hold: 96 Hour Involuntary Admission: No Attestations NPU 2 Medical Necessity Statement*: Inpatient hospitalization is medically necessary and deemed to ?be ?the clinically appropriate intervention ?at this time.? We will monitor/initiate medications and make changes as indicated.? The patient?s likely length of stay 5-7days. Coding Level of Care Code Acute Code for Chg Fwd Diagnoses Major depressive disorder, recurrent severe without psychotic features F33.2 HARRIETT (generalized anxiety disorder) F41.1 PTSD (post-traumatic stress disorder) F43.10
[2024-01-19 16:52] LABS: Glucose Point of Care 287 mg/dL (70-110)
[2024-01-19 19:18] VITALS: BP 141/96; PULSE 98; RESP 19; TEMP 36.7; O2SAT 98
[2024-01-19 20:08] LABS: Glucose Point of Care 300 mg/dL (70-110)
[2024-01-19] MEDS: insulin glargine 100 units/1 mL 30 UNIT SUBCUT (20:38)
[2024-01-19] MEDS: citalopram 20 mg Tablet PO (20:38)
[2024-01-19] MEDS: acetaminophen 325 mg Tablet 650 MG PO (20:38)
[2024-01-20 06:00] VITALS: BP 119/79; PULSE 85; RESP 18; TEMP 36.8; O2SAT 97
[2024-01-20 08:18] LABS: Glucose Point of Care 166 mg/dL (70-110)
[2024-01-20] MEDS: gabapentin 300 mg Capsule 600 MG PO ×2 (08:41→17:30)
[2024-01-20] MEDS: insulin lispro 100 unit/1 mL SUBCUT ×4 (08:41→20:22)
[2024-01-20] MEDS: acetaminophen 325 mg Tablet 650 MG PO ×2 (08:42→16:28)
[2024-01-20] MEDS: sertraline 50 mg Tablet PO (08:43)
[2024-01-20] MEDS: zonisamide 100 MG Capsule PO ×3 (08:43→20:23)
[2024-01-20 11:14] LABS: Glucose Point of Care 276 mg/dL (70-110)
[2024-01-20 14:00] VITALS: BP 182/105; PULSE 105; RESP 16; TEMP 36.8; O2SAT 96
[2024-01-20] MEDS: metoprolol succinate ER (24 HR) 25 mg Tablet PO (14:59)
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
[2024-01-20 16:18] VITALS: BP 105/69; PULSE 85; RESP 18; O2SAT 96
[2024-01-20 17:58] LABS: Glucose Point of Care 207 mg/dL (70-110)
[2024-01-20 19:59] LABS: Glucose Point of Care 282 mg/dL (70-110)
[2024-01-20 20:03] VITALS: BP 142/99; PULSE 81; RESP 18; TEMP 36.8; O2SAT 96
[2024-01-20] MEDS: insulin glargine 100 units/1 mL 30 UNIT SUBCUT (20:23)
[2024-01-20] MEDS: citalopram 20 mg Tablet 10 MG PO (20:23)
[2024-01-21 05:15] VITALS: BP 121/69; PULSE 80; RESP 18; TEMP 36.9; O2SAT 96
[2024-01-21] MEDS: acetaminophen 325 mg Tablet 650 MG PO (07:20)
[2024-01-21] MEDS: diclofenac 75 mg DR Tablet PO (07:21)
[2024-01-21 07:37] LABS: Glucose Point of Care 168 mg/dL (70-110)
[2024-01-21 08:18] VITALS: BP 99/55
[2024-01-21] MEDS: sertraline 50 mg Tablet 75 MG PO (08:25)
[2024-01-21] MEDS: gabapentin 300 mg Capsule 600 MG PO ×2 (08:26→17:59)
[2024-01-21] MEDS: zonisamide 100 MG Capsule PO ×3 (08:26→20:13)
[2024-01-21] MEDS: insulin lispro 100 unit/1 mL SUBCUT ×4 (08:27→20:14)
[2024-01-21] MEDS: lisinopril 10 mg Tablet PO (08:36)
[2024-01-21 12:02] LABS: Glucose Point of Care 206 mg/dL (70-110)
[2024-01-21 14:00] VITALS: BP 116/62; PULSE 100; RESP 17; TEMP 36.9; O2SAT 95
--- NOTE | 2024-01-21 14:49 | P.NPUPN_ITS ---
Subjective NPU 2 Subjective: 43-year-old female with history of multi ple medical problems admitted with worsening depression and anxiety. Patient continued to report feeling anxious. She had reported struggles with controlling her anxiety but stated that she was starting to feel better. She had been agreeable to psychotherapy and reported that she was interested in learning more about managing her anxiety. She had reported having good motivation to read and stated that she needed to find better ways to manage tension in her home. She continue to report some fatigue and feeling unrested when she wakes up in the morning. She had reported struggles with concentration at times and reported problems with memory. She had reported that she continued to struggle with chronic worry. Mental Status Exam 2 MSE Comments: Patient is a casually dressed obese white female who appeared older than her stated age with fair hygiene and normal gait. There was no evidence of any abnormal involuntary motor movements, tics, or tremors appreciated. There was mild psychomotor retardation. Her speech was normal in regards to rate,rhythm and prosody. Her mood was described as a little better. Her affect was anxious. Her thought process was linear, logical and goal-directed. Her thought content showed no evidence of active homicidal ideation. She minimized any active suicidal ideation with less sense of hopelessness. There was no clear evidence of delusional thinking. She did not appear to be responding to internal stimuli. She denied any auditory or visual hallucinations. Her recent and remote memory appeared grossly intact. She was alert and oriented person place time and situation. Her insight is improving. Judgment is guarded. Her impulse control appeared improved. Vitals/I&O/Wt Last Vital Signs Temp 98.4 F 01/21/24 05:15 Pulse 80 01/21/24 05:15 Resp 18 01/21/24 05:15 BP 99/55 01/21/24 08:18 Pulse Ox 96 01/21/24 05:15 O2 Del Method Room Air 01/21/24 05:15 Data NPU 01/18/24 05:48 01/18/24 05:48 A&P Assessment and plan (1) Major depressive disorder, recurrent severe without psychotic features: (2) HARRIETT (generalized anxiety disorder): (3) PTSD (post-traumatic stress disorder): Plan 43-year-old white female with multiple medical problems currently on multiple medications endorsing worsening depression for several months with increased psychosocial stressors at home as well. Patient would likely benefit from inpatient hospital stay with changes to be made in her medication regimen. #1.? Engage patient in individual milieu and group therapy. #2?? Recommend sober living treatment at the highest level of care to which the patient is willing to commit #3??? Restart outpatient medications. Celexa taper to 10mg daily and increase in zoloft to 100mg daily. Continue lisinopril 10mg daily. #4?? TO-15 minute checks #5?? Will attempt to gather collateral information #6 Bibliotherapy encouraged including Mindfullness and Meditation-books by Jesse White ? Involuntary Hold Information 2 96 Hour Hold: 96 Hour Involuntary Admission: No Attestations NPU 2 Medical Necessity Statement*: Inpatient hospitalization is medically necessary and deemed to ?be ?the clinically appropriate intervention ?at this time.? We will monitor/initiate medications and make changes as indicated.? The patient?s likely length of stay 1-2 days. Coding Level of Care Code Acute Code for Chg Fwd Diagnoses Major depressive disorder, recurrent severe without psychotic features F33.2 HARRIETT (generalized anxiety disorder) F41.1 PTSD (post-traumatic stress disorder) F43.10
[2024-01-21 15:53] LABS: Glucose Point of Care 330 mg/dL (70-110)
[2024-01-21 17:20] LABS: Glucose Point of Care 253 mg/dL (70-110)
[2024-01-21 19:41] LABS: Glucose Point of Care 339 mg/dL (70-110)
[2024-01-21 20:00] VITALS: BP 100/66; PULSE 90; RESP 18; TEMP 36.7; O2SAT 99
[2024-01-21] MEDS: citalopram 20 mg Tablet 10 MG PO (20:13)
[2024-01-21] MEDS: hyDROXYzine 25 mg Capsule 50 MG PO (20:13)
[2024-01-21] MEDS: insulin glargine 100 units/1 mL 30 UNIT SUBCUT (20:14)
[2024-01-22 05:40] VITALS: BP 88/57; PULSE 96; RESP 16; TEMP 36.7; O2SAT 97
[2024-01-22 07:56] LABS: Glucose Point of Care 185 mg/dL (70-110)
[2024-01-22] MEDS: lisinopril 10 mg Tablet PO (10:18)
[2024-01-22] MEDS: sertraline 50 mg Tablet 100 MG PO (10:18)
[2024-01-22] MEDS: zonisamide 100 MG Capsule PO (10:18)
[2024-01-22] MEDS: gabapentin 300 mg Capsule 600 MG PO (10:19)
[2024-01-22] MEDS: insulin lispro 100 unit/1 mL SUBCUT (10:19)
--- NOTE | 2024-01-22 11:10 | DCPLANNER ---
IMM was given to pt and rights explained and copy placed in pts file.
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
[2024-01-22 12:04] LABS: Glucose Point of Care 176 mg/dL (70-110)
[2024-01-22 12:11] VITALS: BP 88/57; PULSE 96; RESP 16; TEMP 36.7; O2SAT 97
== END 2024-01-22 12:40 | disposition home or self-care (01) | DRG 885 ==
LOC: ER 05:35 → NP 05:59
PROVIDERS: Admitting Provider Psychiatry & Neurology Psychiatry; Emergency Provider Emergency Medicine; PCP Nurse Practitioner Family; Visit Provider Psychiatry & Neurology Psychiatry
DX: F33.2 Major depressive disorder, recurrent severe without psychotic features (principal); R45.851 Suicidal ideations; Z68.41 Body mass index [BMI] 40.0-44.9, adult; F41.1 Generalized anxiety disorder; E11.9 Type 2 diabetes mellitus without complications; G43.909 Migraine, unspecified, not intractable, without status migrainosus; F43.10 Post-traumatic stress disorder, unspecified; G47.33 Obstructive sleep apnea (adult) (pediatric); E66.9 Obesity, unspecified; I10 Essential (primary) hypertension; Z79.899 Other long term (current) drug therapy; Z91.410 Personal history of adult physical and sexual abuse; Z62.810 Personal history of physical and sexual abuse in childhood; Z79.4 Long term (current) use of insulin; Z63.5 Disruption of family by separation and divorce; Z63.79 Other stressful life events affecting family and household; M79.7 Fibromyalgia; Z88.8 Allergy status to other drugs, medicaments and biological substances
CPT/HCPCS: 36415; 36416; 80053; 80306; 80307; 81003; 81015; 81025; 82962; 85025; 96372; 97150; 97165; 99285; J1815

== ENCOUNTER 2024-01-29 10:23 | Outpatient (CLI) | payer MEDICARE, MEDICAID, SELFPAY ==
[2024-01-29 10:34] LABS: Basophils # 0.1 10^3/uL (0.0-0.1); Basophils % 0.6 %; Eosinophils # 0.2 10^3/uL (0.0-0.8); Eosinophils % 2.5 %; Lymphocytes # 2.5 10^3/uL (0.8-4.8); Lymphocytes % 28.2 %; Mean Corpuscular HGB Conc 32.1 g/dL (30-55); Mean Corpuscular Hemoglobin 28.6 pg (27-33); Mean Corpuscular Volume 89.2 fl (85-98); Mean Platelet Volume 10.7 fL (7.4-10.4); Monocytes # 0.5 10^3/uL (0.2-0.9); Monocytes % 5.1 %; Neutrophils # 5.49 10^3/uL (1.8-7.7); Neutrophils % 62.8 %; Nucleated Red Blood Cells % 0 %; Platelet Count 282 10^3/cmm (157-399); Red Blood Count 4.82 10^6/uL (3.85-5.65); Red Cell Distribution Width 13.5 % (12.1-15.1); White Blood Count 8.75 10^3/uL (3.29-11.43)
== END 2024-01-29 10:24 | disposition home or self-care (01) ==
LOC: LAB 10:24
PROVIDERS: PCP Nurse Practitioner Family; Visit Provider Internal Medicine Rheumatology
DX: M46.1 Sacroiliitis, not elsewhere classified (principal); M47.819 Spondylosis without myelopathy or radiculopathy, site unspecified; M19.90 Unspecified osteoarthritis, unspecified site; Z79.899 Other long term (current) drug therapy; Z71.85 Encounter for immunization safety counseling; R76.8 Other specified abnormal immunological findings in serum; K76.0 Fatty (change of) liver, not elsewhere classified; M47.9 Spondylosis, unspecified
CPT/HCPCS: 36415; 85025; 99214

== ENCOUNTER → 2024-02-25 14:20 | Outpatient (BNVA) | payer MEDICARE, OTHER, SELFPAY | PROVIDERS: PCP Nurse Practitioner Family; Visit Provider Specialist | DX: G43.711 Chronic migraine without aura, intractable, with status migrainosus (principal); F44.5 Conversion disorder with seizures or convulsions; M79.7 Fibromyalgia | CPT/HCPCS: 99214 ==

== ENCOUNTER → 2024-05-03 09:30 | Outpatient (BNVA) | payer MEDICAID, SELFPAY | PROVIDERS: PCP Nurse Practitioner Family; Visit Provider Internal Medicine | DX: E11.9 Type 2 diabetes mellitus without complications (principal); E78.2 Mixed hyperlipidemia; K30 Functional dyspepsia; Z79.4 Long term (current) use of insulin | CPT/HCPCS: 99214 ==

== ENCOUNTER 2024-07-15 16:35 | Outpatient (CLI) | payer MEDICARE, MEDICAID, SELFPAY ==
[2024-07-15 17:22] LABS: Estmated Average Glucose 220; Hemoglobin A1C 9.3 % (4.0-6.0)
[2024-07-15 18:19] LABS: Alanine Aminotransferase 20 U/L (0-33); Albumin Level 4.5 g/dL (3.5-5.2); Alkaline Phosphatase 114 U/L (35-105); Anion Gap 19.3 (5-19); Aspartate Amino Transferase 19 U/L (0-32); Blood Urea Nitrogen 15 mg/dL (6-20); Calcium 9.8 mg/dL (8.5-10.5); Carbon Dioxide 20 mmol/L (22-29); Chloride 104 mmol/L (98-107); Chol HDL Ratio 5.31 mg/dL (0.0-4.40); Cholesterol 186 mg/dL (0-200); Globulin 3.5 g/dL (1.3-4.6); Glomerular Filtration Rate 90.1 mL/min (90-130); Glucose 138 mg/dL (65-115); HDL Cholesterol 35 mg/dL (60-100); LDL Cholesterol Calculated 117 mg/dL (50-129); LDL HDL Ratio 3.34 RATIO (0.00-3.22); Osmolality Calculated 291 mOsm/kg (285-295); Potassium 4.3 mmol/L (3.5-5.1); Sodium 139 mmol/L (136-145); Total Bilirubin 0.3 mg/dL (0.15-1.2); Triglycerides 170 mg/dL (0-150)
[2024-07-15 18:32] LABS: Creatinine Urine, Random 109 mg/dL (28-217); Microalbum Creatinine Ratio Ur 9 mg/dL (0-20); Microalbumin Random Urine 1 ug/dL (0-20)
== END 2024-07-15 16:36 | disposition home or self-care (01) ==
LOC: LAB 16:40
PROVIDERS: Visit Provider Internal Medicine
DX: E11.9 Type 2 diabetes mellitus without complications (principal); E78.2 Mixed hyperlipidemia
CPT/HCPCS: 36415; 80053; 80061; 82044; 83036

== ENCOUNTER → 2024-07-29 10:51 | Outpatient (BNVA) | payer MEDICARE, MEDICAID, SELFPAY | PROVIDERS: Visit Provider Internal Medicine Rheumatology | DX: Z79.899 Other long term (current) drug therapy (principal); M47.819 Spondylosis without myelopathy or radiculopathy, site unspecified; M46.1 Sacroiliitis, not elsewhere classified; M19.90 Unspecified osteoarthritis, unspecified site; Z71.89 Other specified counseling; R76.8 Other specified abnormal immunological findings in serum | CPT/HCPCS: 20610; 99214 ==

== ENCOUNTER → 2024-08-09 12:44 | Outpatient (BNVA) | payer MEDICARE, MEDICAID, SELFPAY | PROVIDERS: PCP Nurse Practitioner; Visit Provider Specialist | DX: G43.711 Chronic migraine without aura, intractable, with status migrainosus (principal); F44.5 Conversion disorder with seizures or convulsions; M79.7 Fibromyalgia; R20.0 Anesthesia of skin; M47.819 Spondylosis without myelopathy or radiculopathy, site unspecified; M50.90 Cervical disc disorder, unspecified, unspecified cervical region; F43.10 Post-traumatic stress disorder, unspecified; F41.1 Generalized anxiety disorder | CPT/HCPCS: 99215 ==

== ENCOUNTER → 2024-08-17 09:21 | Outpatient (BNVA) | payer MEDICARE, MEDICAID, SELFPAY | PROVIDERS: Visit Provider Anesthesiology Pain Medicine | DX: M51.16 Intervertebral disc disorders with radiculopathy, lumbar region (principal); M46.1 Sacroiliitis, not elsewhere classified; M54.2 Cervicalgia; M54.9 Dorsalgia, unspecified; M47.819 Spondylosis without myelopathy or radiculopathy, site unspecified; F44.5 Conversion disorder with seizures or convulsions; F43.10 Post-traumatic stress disorder, unspecified; R76.8 Other specified abnormal immunological findings in serum; M19.90 Unspecified osteoarthritis, unspecified site; M47.816 Spondylosis without myelopathy or radiculopathy, lumbar region; M25.551 Pain in right hip; M25.552 Pain in left hip; K30 Functional dyspepsia; E78.2 Mixed hyperlipidemia; E11.9 Type 2 diabetes mellitus without complications | CPT/HCPCS: 36415; 80053; 84681; 86337; 86341; 99214 ==

== ENCOUNTER → 2024-08-25 09:14 | Outpatient (BNVA) | payer MEDICARE, MEDICAID, SELFPAY | PROVIDERS: Visit Provider Anesthesiology Pain Medicine | DX: M54.16 Radiculopathy, lumbar region (principal); M54.9 Dorsalgia, unspecified; Z87.891 Personal history of nicotine dependence | CPT/HCPCS: 64483; 64484; J1100; J3490; J9999 ==

== ENCOUNTER 2024-10-17 05:00 | Outpatient (RCR) | payer MEDICARE, MEDICAID, SELFPAY | END 2024-11-15 23:59 | disposition home or self-care (01) | LOC: SOT 05:00 | PROVIDERS: PCP Nurse Practitioner; Visit Provider Nurse Practitioner | DX: M19.09 Primary osteoarthritis, other specified site (principal) | CPT/HCPCS: 97167 ==

== ENCOUNTER 2024-10-28 11:37 | Outpatient (CLI) | payer MEDICARE, MEDICAID, SELFPAY ==
--- NOTE | 2024-10-28 11:39 | MM_ITS ---
WS: [id number] BILATERAL 3D TOMOSYNTHESIS DIGITAL SCREENING MAMMOGRAPHY WITH CAD CLINICAL INFORMATION: SCREENING HISTORY: Screening mammogram. No current complaints. COMPARISON: Baseline TECHNIQUE: Bilateral CC and MLO views. FINDINGS: Scattered fibroglandular densities bilaterally. No suspicious focal mass, asymmetry, calcifications, or architectural distortion. No evidence of malignancy. Incidental skin calcifications. MM/MM scr tomosynthesis [id number] IMPRESSION: DENSITY: There are scattered areas of fibroglandular density. BI-RADS: 2 - Benign. FOLLOW UP: 1 Year Follow-up Recommend return to annual screening mammography.
== END 2024-10-28 11:38 | disposition home or self-care (01) ==
LOC: RAD 11:39
PROVIDERS: PCP Nurse Practitioner; Visit Provider Nurse Practitioner
DX: Z12.31 Encounter for screening mammogram for malignant neoplasm of breast (principal); R92.323 Mammographic fibroglandular density, bilateral breasts; R92.1 Mammographic calcification found on diagnostic imaging of breast
CPT/HCPCS: 77063; 77067

== ENCOUNTER 2024-11-09 12:02 | Outpatient (RCR) | payer MEDICARE, MEDICAID, SELFPAY ==
[2024-11-09 15:57] LABS: Erythrocyte Sedimentation Rate 17 mm/hr (0-15)
[2024-11-09 16:31] LABS: C Reactive Protein 20.6 mg/L (0.0-4.9); Glomerular Filtration Rate 90.1 mL/min (90-130)
== END 2024-11-15 23:59 | disposition home or self-care (01) ==
LOC: SOT 12:02
PROVIDERS: Internal Medicine Rheumatology; Visit Provider Nurse Practitioner
DX: M46.1 Sacroiliitis, not elsewhere classified (principal); M35.9 Systemic involvement of connective tissue, unspecified; M19.90 Unspecified osteoarthritis, unspecified site; M79.7 Fibromyalgia
CPT/HCPCS: 36415; 82565; 85651; 86140; 97167; 99214

== ENCOUNTER 2024-11-09 15:14 | Outpatient (CLI) | payer OTHER, MEDICAID, SELFPAY ==
[2024-11-09 15:59] LABS: Basophils # 0.1 10^3/uL (0.0-0.1); Basophils % 0.8 %; Eosinophils # 0.3 10^3/uL (0.0-0.8); Eosinophils % 3.9 %; Hematocrit 44.2 % (36-47); Lymphocytes # 1.9 10^3/uL (0.8-4.8); Lymphocytes % 25.8 %; Mean Corpuscular Hemoglobin 28.1 pg (27-33); Mean Corpuscular Volume 85.2 fl (85-98); Mean Platelet Volume 10.5 fL (7.4-10.4); Monocytes # 0.6 10^3/uL (0.2-0.9); Monocytes % 7.5 %; Neutrophils % 61.6 %; Nucleated Red Blood Cells % 0 %; Platelet Count 226 10^3/cmm (157-399); Red Blood Count 5.19 10^6/uL (3.85-5.65); White Blood Count 7.47 10^3/uL (3.29-11.43)
[2024-11-09 16:59] LABS: Alanine Aminotransferase 30 U/L (0-33); Albumin Level 4.2 g/dL (3.5-5.2); Alkaline Phosphatase 95 U/L (35-105); Anion Gap 17.9 (5-19); Aspartate Amino Transferase 27 U/L (0-32); Bilirubin Direct 0.17 mg/dL (0.00-0.30); Blood Urea Nitrogen 14 mg/dL (6-20); Calcium 9.3 mg/dL (8.5-10.5); Carbon Dioxide 24 mmol/L (22-29); Chloride 102 mmol/L (98-107); Glomerular Filtration Rate 90.1 mL/min (90-130); Glucose 219 mg/dL (65-115); Lipase 38 U/L (13-60); Osmolality Calculated 297 mOsm/kg (285-295); Potassium 3.9 mmol/L (3.5-5.1); Sodium 140 mmol/L (136-145); Total Bilirubin 0.4 mg/dL (0.15-1.2); Total Protein 7.2 g/dL (6.6-8.7)
== END 2024-11-09 15:15 | disposition home or self-care (01) ==
LOC: LAB 15:16
PROVIDERS: PCP Nurse Practitioner; Visit Provider Surgery
DX: Z51.81 Encounter for therapeutic drug level monitoring (principal); Z79.1 Long term (current) use of non-steroidal anti-inflammatories (NSAID); R10.13 Epigastric pain
CPT/HCPCS: 36415; 80048; 80076; 83690; 85025

== ENCOUNTER 2024-11-11 15:09 | Outpatient (CLI) | payer OTHER, MEDICAID, SELFPAY ==
--- NOTE | 2024-11-11 15:13 | XR_ITS ---
WS: [id number] Exam: XR thoracic spine 3V* [id number] Date/Time of Exam: 11/11/2024 3:13 PM Reason For Exam: M54.9 - Dorsalgia, unspecified Exam: XR thoracic spine 3V* [id number] Date/Time of Exam: 11/11/2024 3:13 PM Reason For Exam: M54.9 - Dorsalgia, unspecified No fracture. Mild spondylosis. Slight levoscoliosis. Normal paraspinal soft tissues. XR/XR thoracic spine 3V* [id number] IMPRESSION: 1. Mild degenerative changes and slight levoscoliosis.
--- NOTE | 2024-11-11 15:15 | MR_ITS ---
WS: [id number] MRI CERVICAL SPINE NONCONTRAST TECHNIQUE: Sagittal T1, T2 and STIR imaging. Axial T2, gradient, and fiesta imaging. CLINICAL INFORMATION: R20.0 - Anesthesia of skin COMPARISON: None. FINDINGS: Straightening of the normal cervical lordosis. Disc bulging worse at C3-4. No high-grade central canal stenosis. Cord signal is normal. C2-C3: Normal. C3-C4: Mild disc bulging eccentric to the LEFT. Moderate LEFT bony foraminal narrowing. Mild facet arthropathy. C4-C5: Mild facet arthropathy. Spinal canal and foramen are patent. C5-C6: Mild facet arthropathy. Mild LEFT bony foraminal narrowing. Spinal canal is patent. C6-C7: Normal. C7-T1: Normal. Visualized brain stem structures: Normal. Prevertebral soft tissues: Normal. MR/MR cervical spin wo con* [id number] IMPRESSION: 1. Straightening of the normal cervical lordosis. Cord signal is normal. 2. No high-grade central canal stenosis. 3. Mild disc bulging at C3-4 eccentric to the LEFT with moderate LEFT bony for aminal narrowing. 4. Mild facet arthropathy described above.
== END 2024-11-11 15:10 | disposition home or self-care (01) ==
PROVIDERS: Absent Provider Internal Medicine Rheumatology; PCP Nurse Practitioner; Visit Provider Specialist
DX: R20.0 Anesthesia of skin (principal); G43.711 Chronic migraine without aura, intractable, with status migrainosus; M47.894 Other spondylosis, thoracic region; M50.31 Other cervical disc degeneration, high cervical region; M47.812 Spondylosis without myelopathy or radiculopathy, cervical region; M46.1 Sacroiliitis, not elsewhere classified; M19.90 Unspecified osteoarthritis, unspecified site; Z79.899 Other long term (current) drug therapy; Z71.89 Other specified counseling; R76.8 Other specified abnormal immunological findings in serum; M45.9 Ankylosing spondylitis of unspecified sites in spine; M79.7 Fibromyalgia
CPT/HCPCS: 72072; 72141; 99214

== ENCOUNTER → 2024-12-08 11:42 | Outpatient (BNVA) | payer OTHER, MEDICAID, SELFPAY | PROVIDERS: PCP Nurse Practitioner; Visit Provider Nurse Practitioner | DX: R06.00 Dyspnea, unspecified (principal) | CPT/HCPCS: 83880 ==

== ENCOUNTER 2024-12-09 09:11 | Day surgery (SDC) | payer OTHER, MEDICAID, SELFPAY ==
--- NOTE | 2024-12-09 09:27 | W.PM.OPSFHP ---
Same Day Surgery H&P Indication for Procedure/HPI DATE OF PROCEDURE: December 09, 2024 CHIEF COMPLAINT/INDICATIONFOR SURGICAL PROCEDURE: abdominal pain PREOP DIAGNOSIS: abdominal pain PLANNED PROCEDURE: Operation Date: 12/09/24 11:00 Proposed Procedures p EGD with Biopsy 34892, R10.13(Not Applicable) - Peng Beckman MD Medications/Allergies* Home Medications ?Medication ?Instructions ?Recorded ?Confirmed ?Type fluticasone propionate 50 2 spray intranasal DAILY PRN 06/03/19 12/08/24 History mcg/actuation nasal Allergy Symptoms spray,suspension (Allergy Relief (fluticasone)) ropinirole 1 mg tablet 3 mg PO BEDTIME 05/31/21 12/08/24 History albuterol sulfate 90 mcg/actuation 2 puff inhalation Q4H PRN 08/25/23 12/08/24 History aerosol inhaler Shortness Of Breath ascorbic acid (vitamin C) 500 mg 500 mg PO .WEEKLY 08/25/23 12/08/24 History tablet (Vitamin C) aspirin 81 mg tablet,delayed 81 mg PO BEDTIME 08/25/23 12/08/24 History release dapagliflozin propanediol 10 mg 10 mg PO BEDTIME 08/25/23 12/08/24 History tablet (Farxiga) ibuprofen 800 mg tablet 800 mg PO TID PRN Pain 08/25/23 12/08/24 History polyethylene glycol 3350 17 gram 17 g PO TID PRN Constipation 08/25/23 12/08/24 History oral powder packet (Miralax) pantoprazole 40 mg tablet,delayed 40 mg PO DAILY 11/15/24 12/08/24 History release tramadol 50 mg tablet 50 mg PO BID pain (scale score 12/06/24 12/08/24 History 7-10) insulin glargine 100 unit/mL (3 30 unit SUBCUT .Q EVENING 12/08/24 12/08/24 History mL) subcutaneous pen (Lantus Solostar U-100 Insulin) tirzepatide 5 mg/0.5 mL 5 mg SUBCUT .WKLY 12/08/24 12/08/24 History subcutaneous pen injector (Mounjaro) Allergies/Adverse Reactions Allergy/AdvReac Type Severity Reaction Status Date / Time methylprednisolone Allergy ADR/ALGY-Pa Verified 12/08/24 11:19 lpitations Pertinent History/Comorbid Conditions* Medical History (Updated 12/08/24 @ 11:41 by RITA Benson) Ankylosing spondylitis Psychiatric care Loss of consciousness Anemia Depression PTSD (post-traumatic stress disorder) Intervertebral disc disorder with radiculopathy of lumbar region Gastritis Fibromyalgia Undifferentiated connective tissue disease Inflammatory arthritis Sacroiliitis Spondylarthritis Surgical History (Updated 08/02/19 @ 09:12 by Antoine Bauer MD) H/O esophagogastroduodenoscopy 08/02/2019: Gastric erosions History of dilation and curettage History of tubal ligation History of tonsillectomy History of cholecystectomy Family History (Updated 09/29/19 @ 13:05 by Jovita Tierney LPN) Diabetes Father Arthritis Mother Heart disease Mother Father Kidney disease Father Cancer Father Stroke Mother Social History Smoking and tobacco/nicotine status: former use of tobacco/nicotine Quit status (tobacco/nicotine): has tried quititng Alcohol intake: never Substance/Drug Use: never Household members: children Marital status: Current occupational status: unemployed Pertinent Exam Findings alert, oriented x 3, clear to auscultation bilaterally and regular rate & rhythm Recommendations Surgery/Procedure today Coding Level of Care Code Acute Code for Chg Fwd
[2024-12-09 09:37] VITALS: BP 154/107; PULSE 82; RESP 18; TEMP 36.1; O2SAT 98; BMI 39.0
--- NOTE | 2024-12-09 10:27 | ANES.PREANE2 ---
Pre-Anesthetic Assessment Height/Weight: Height 1.68 m Weight 109.769 kg Temp Pulse Resp BP Pulse Ox O2 Del Method 97.0 F L 82 18 154/107 98 Room Air 12/09/24 09:37 12/09/24 09:37 12/09/24 09:37 12/09/24 09:37 12/09/24 09:37 12/09/24 09:37 Preop Diagnosis: abdominal pain Operation Date: 12/09/24 11:00 Proposed Procedures p EGD with Biopsy [id number], R10.13(Not Applicable) - Peng Beckman MD Was Beta Dayami taken within 24 hours: Yes Was Clonidine taken within 24 hours: N/A Last intake: Intake Last Liquid Date 12/08/24 Last Liquid Time 23:00 Last Solid Date 12/08/24 Last Solid Time 21:00 Exam alert and oriented x 3 Airway Submandibular: within normal limits Cervical ROM: within normal limits Mallampati: Class III History/ROS No significant history except as noted Pulmonary Asthma and Sleep Apnea no recent meds or rescue Musc/skel Fibromyalgia and Lower Back Pain Neuropsych Anxiety Anesthetic Plan ASA status: 3 Anesthesia: Anesthesia Evaluation, General and MAC Risk of > 500 ml blood loss (7ml/kg in children): No Medications/Allergies Home Medications ?Medication ?Instructions ?Recorded ?Confirmed ?Last Taken ?Type fluticasone propionate 50 2 spray intranasal DAILY PRN 06/03/19 12/09/24 1 Month Ago History mcg/actuation nasal Allergy Symptoms ~11/06/24 spray,suspension (Allergy Relief (fluticasone)) ropinirole 1 mg tablet 3 mg PO BEDTIME 05/31/21 12/09/24 12/08/24 History 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,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,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 ea 06/16/23 12/08/24 Unknown Rx ([employer]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) albuterol sulfate 90 mcg/actuation 2 puff inhalation Q4H PRN 08/25/23 12/08/24 3 Months Ago History aerosol inhaler Shortness Of Breath ~08/15/24 ascorbic acid (vitamin C) 500 mg 500 mg PO .WEEKLY 08/25/23 12/09/24 1 Week Ago History tablet (Vitamin C) ~11/29/24 aspirin 81 mg tablet,delayed 81 mg PO BEDTIME 08/25/23 12/09/24 12/07/24 History release dapagliflozin propanediol 10 mg 10 mg PO BEDTIME 08/25/23 12/09/24 12/08/24 History tablet (Farxiga) dicyclomine 20 mg tablet 20 mg PO TID PRN abdominal pain 08/25/23 12/09/24 1 Month Ago Rx #20 tabs ~11/06/24 ibuprofen 800 mg tablet 800 mg PO TID PRN Pain 08/25/23 12/09/24 10/17/24 History ondansetron 4 mg disintegrating 4 mg PO Q6H PRN nausea and 08/25/23 12/09/24 1 Month Ago Rx tablet vomiting #14 tabs ~11/06/24 polyethylene glycol 3350 17 gram 17 g PO TID PRN Constipation 08/25/23 12/09/24 2 Months Ago History oral powder packet (Miralax) ~09/15/24 diclofenac sodium 1 % topical gel 4 g topical QID PRN Pain #100 grams 01/29/24 12/09/24 12/03/24 Rx gabapentin 600 mg tablet 600 mg PO BID #60 tabs 01/29/24 12/09/24 12/08/24 Rx 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 sensor (Dexcom G7 #9 ea 07/29/24 12/08/24 Unknown Rx Sensor device) erenumab-aooe 140 mg/mL See Rx Instructions .Route 08/09/24 12/09/24 12/06/24 Rx subcutaneous auto-injector .COMPLEX #4 mL (Aimovig Autoinjector) zonisamide 100 mg capsule 100 mg PO TID 90 days #270 caps 08/09/24 12/09/24 12/08/24 Rx insulin lispro 100 unit/mL See Rx Instructions .Route 08/19/24 12/09/24 12/08/24 Rx subcutaneous pen .COMPLEX #15 mL atorvastatin 20 mg tablet 20 mg PO BEDTIME #30 tabs 08/25/24 12/09/24 12/08/24 Rx cholecalciferol (vitamin D3) 1,250 50,000 unit PO Q7D #4 caps 08/25/24 12/09/24 12/03/24 Rx mcg (50,000 unit) capsule miscellaneous medical supply See Rx Instructions miscellaneous 08/25/24 12/08/24 Unknown Rx .COMPLEX #1 ea sucralfate 1 gram tablet 1 g PO QID Stomach Ulcers #120 tabs 08/25/24 12/09/24 12/06/24 Rx tizanidine 4 mg tablet 4 mg PO BEDTIME Muscle Spasm #30 08/25/24 12/09/24 12/08/24 Rx tabs pen needle, diabetic 32 gauge x #100 ea 09/10/24 12/08/24 Unknown Rx miscellaneous medical supply See Rx Instructions miscellaneous 09/21/24 12/08/24 Unknown Rx .COMPLEX #1 ea propranolol 10 mg tablet 10 mg PO BID PRN anxiety #60 tabs 11/10/24 12/09/24 12/09/24 Rx sertraline 100 mg tablet 200 mg (2 x 100 mg) PO DAILY 30 11/10/24 12/09/24 12/08/24 Rx days #60 tabs clobetasol 0.05 % topical cream 1 applic topical BID #60 grams 11/11/24 12/09/24 11/19/24 Rx leflunomide 20 mg tablet 20 mg PO DAILY #90 tabs 11/11/24 12/09/24 12/08/24 Rx prednisone 5 mg tablet See Rx Instructions PO .COMPLEX 11/11/24 12/09/24 2 Weeks Ago Rx PRN joint pain flares #60 tabs ~11/22/24 secukinumab 150 mg/mL subcutaneous 150 mg SUBCUT .[id number] #2 mL 11/11/24 12/09/24 12/06/24 Rx pen injector (Cosentyx Pen 300 mg/2 pens () diclofenac sodium 75 mg 75 mg PO BID PRN joint pain 7-10 11/15/24 12/09/24 2 Weeks Ago Rx tablet,delayed release pain scale #60 tabs ~11/22/24 pantoprazole 40 mg tablet,delayed 40 mg PO DAILY 11/15/24 12/09/24 12/08/24 History release tramadol 50 mg tablet 50 mg PO BID pain (scale score 12/06/24 12/09/24 12/09/24 History 7-10) insulin glargine 100 unit/mL (3 30 unit SUBCUT .Q EVENING 12/08/24 12/09/24 12/08/24 History mL) subcutaneous pen (Lantus Solostar U-100 Insulin) tirzepatide 5 mg/0.5 mL 5 mg SUBCUT .WKLY 12/08/24 12/08/24 10/17/24 History subcutaneous pen injector (Mounjaro) Allergies Allergy/AdvReac Type Severity Reaction Status Date / Time methylprednisolone Allergy ADR/ALGY-Pa Verified 12/08/24 11:19 lpitations Current Medications Generic Name Dose Route Start Last Admin Trade Name Freq PRN Reason Stop Dose Admin Sodium Chloride 1,000 mls @ 30 mls/hr 12/09/24 09:30 12/09/24 09:47 Sodium Chloride 0.9% IV 12/10/24 09:29 30 mls/hr .Q24H MILLICENT Administration PFSH Anesthesia Medical History (Updated 12/08/24 @ 11:41 by RITA Benson) Ankylosing spondylitis Psychiatric care Loss of consciousness Anemia Depression PTSD (post-traumatic stress disorder) Intervertebral disc disorder with radiculopathy of lumbar region Gastritis Fibromyalgia Undifferentiated connective tissue disease Inflammatory arthritis Sacroiliitis Spondylarthritis Surgical History H/O esophagogastroduodenoscopy 08/02/2019: Gastric erosions History of dilation and curettage History of tubal ligation History of tonsillectomy History of cholecystectomy Family History Mother Arthritis Heart disease Stroke Father Cancer Diabetes Heart disease Kidney disease Social History Smoking and tobacco/nicotine status: former use of tobacco/nicotine Quit status (tobacco/nicotine): has tried quititng Alcohol intake: never Substance/Drug Use: never Household members: children Marital status: Current occupational status: unemployed
[2024-12-09 10:45] VITALS: BP 106/72; PULSE 72; RESP 12; TEMP 36.2; O2SAT 96
--- NOTE | 2024-12-09 11:15 | ANE.PACU2 ---
Inpatient post-anesthesia follow up: Airway intact: Yes Vital signs: Temperature 97.2 F Pulse Rate 72 Respiratory Rate 12 Blood Pressure 106/72 Pulse Oximetry 96 Oxygen Delivery Me thod Nasal Cannula Oxygen Flow Rate 6 Fraction of Inspir ed Oxygen Hydration adequate: Yes Nausea and vomiting: No Pain level: 1 Mental status: Baseline
[2024-12-09 12:42] LABS: OR HCG Qualitative Urine Negative (Negative)
== END 2024-12-09 11:17 | disposition home or self-care (01) ==
PROVIDERS: Anesthesiology; PCP Nurse Practitioner; Visit Provider Surgery
PROC: 0DJ08ZZ Inspection of Upper Intestinal Tract, Via Natural or Artificial Opening Endoscopic (ICD-10-PCS; principal; 2024-12-09 11:00)
DX: K29.50 Unspecified chronic gastritis without bleeding (principal); K21.9 Gastro-esophageal reflux disease without esophagitis; K44.9 Diaphragmatic hernia without obstruction or gangrene; Z79.899 Other long term (current) drug therapy; Z79.4 Long term (current) use of insulin; Z79.85 Long-term (current) use of injectable non-insulin antidiabetic drugs; Z79.82 Long term (current) use of aspirin; Z87.891 Personal history of nicotine dependence
CPT/HCPCS: 36416; 43239; 81025; 82962; 88305; 88342; J2704; J7030

== ENCOUNTER → 2024-12-21 10:09 | Outpatient (BNVA) | payer OTHER, MEDICAID, SELFPAY | PROVIDERS: PCP Nurse Practitioner; Visit Provider Surgery | DX: Z09 Encounter for follow-up examination after completed treatment for conditions other than malignant neoplasm (principal); K90.41 Non-celiac gluten sensitivity | CPT/HCPCS: 36415; 99213 ==

== ENCOUNTER 2024-12-22 13:41 | Outpatient (CLI) | payer OTHER, MEDICAID, SELFPAY | END 2024-12-22 13:42 | disposition home or self-care (01) | LOC: LAB 13:42 | PROVIDERS: PCP Nurse Practitioner; Visit Provider Surgery | DX: K90.41 Non-celiac gluten sensitivity (principal) | CPT/HCPCS: 36415; 82784; 83516 ==

== ENCOUNTER → 2025-04-12 10:18 | Outpatient (BNVA) | payer OTHER, MEDICAID, SELFPAY | PROVIDERS: PCP Nurse Practitioner; Visit Provider Nurse Practitioner | DX: M79.604 Pain in right leg (principal); M79.605 Pain in left leg | CPT/HCPCS: 80053; 83036; 83735 ==

== ENCOUNTER → 2025-04-28 12:47 | Outpatient (BNVA) | payer MEDICARE, MEDICAID, SELFPAY | PROVIDERS: PCP Nurse Practitioner; Visit Provider Internal Medicine Rheumatology | DX: M46.1 Sacroiliitis, not elsewhere classified (principal); M13.80 Other specified arthritis, unspecified site; Z71.85 Encounter for immunization safety counseling; Z79.899 Other long term (current) drug therapy; R76.89 Other specified abnormal immunological findings in serum; M45.9 Ankylosing spondylitis of unspecified sites in spine; M47.819 Spondylosis without myelopathy or radiculopathy, site unspecified; M62.81 Muscle weakness (generalized) | CPT/HCPCS: 36415; 80076; 82085; 82550; 82565; 85025; 85651; 86140; 99215 ==